=== PATIENT | female | born 1990 | race Caucasian/White ===

== ENCOUNTER 2017-02-12 16:58 | Emergency (ER) | payer OTHER ==
[~2017-02-12] VITALS: Ht 162.6 cm; Wt 78.2 kg
[~2017-02-12 16:58] MED LIST: ALBUAER2 INH; HYDR-5688 PO; IBUP-103 PO; ONDA4TAB46 PO
[2017-02-12 17:15] VITALS: TEMP 36.7; Ht 162.6 cm; Wt 78.2 kg
[2017-02-12] MEDS ORDERED: ONDANSETRON INJ 2 MG/ML 2 ML VIAL IV STA (18:21)
[2017-02-12] MEDS ORDERED: SODIUM CHLORIDE 0.9% 1000ML 1,000 ML IV STA (18:21)
[2017-02-12] MEDS ORDERED: FENTANYL CITRATE INJ 50 MCG/1 ML 2 ML VIAL IV PRN (18:30)
[2017-02-12 18:40] LABS: BASO % 0.2 %; BASO ABS # 0.02 K/uL (0-0.2); COMPLETE YES; EOS % 2.8 %; HEMATOCRIT 40.8 % (37-47); IG% 0.2 %; LYMPH % 38.2 %; MEAN CELL VOLUME 85.2 fL (80-100); MEAN CORPUSCULAR HEMOGLOBIN 29.4 pg (25-34); MEAN CORPUSCULAR HGB CONC 34.6 g/dl (32-36); MEAN PLATELET VOLUME 9.2 fL (7.4-10.4); MONO % 8.9 %; NEUT % 49.7 %; PLATELET COUNT 225 K/uL (130-400); RED BLOOD COUNT 4.79 M/uL (4.2-5.4); WHITE BLOOD COUNT 9.17 K/uL (4.8-10.8)
[2017-02-12 18:54] LABS: BLOOD UREA NITROGEN 18 mg/dl (7-18); BUN/CREATININE RATIO 20.4 (10-20); CALCIUM 9.2 mg/dl (8.5-10.1); CARBON DIOXIDE 23 mmol/L (21-32); CHLORIDE 106 mmol/L (98-107); CREATININE 0.89 mg/dl (0.60-1.20); GLUCOSE 86 mg/dl (70-99); POTASSIUM 3.5 mmol/L (3.5-5.1); SODIUM 139 mmol/L (136-145)
[2017-02-12 19:01] LABS: ALKALINE PHOSPHATASE 45 U/L (45-117); ALT/SGPT 19 U/L (12-78); AST/SGOT 17 U/L (15-37)
[2017-02-12 19:07] LABS: URINE APPEARANCE CLEAR (CLEAR); URINE BILIRUBIN NEG (NEG); URINE COLOR YELLOW; URINE EPITHELIAL CELL AUTO >30 /lpf (0-5); URINE NITRITE NEG (NEG); URINE SPECIFIC GRAVITY 1.022 (1.000-1.030); UROBILINOGEN NEG (NEG); ZZUR CULT IF INDIC CLEAN CATCH NO
[2017-02-12 19:08] LABS: MANUAL MICROSCOPIC REQUIRED? NO; REVIEW REQ? NO
[2017-02-12] MEDS ORDERED: ALBU18002 INH (19:09)
--- NOTE | 2017-02-12 19:43 | DIAGNOSTIC IMAGING REPORT ---
ABDOMEN AND PELVIS CT WITH IV CONTRAST CT DOSE: 412.49 mGy.cm HISTORY: Hernia. Pain. eval for periumbilical hernia TECHNIQUE: Multiaxial CT images of the abdomen and pelvis were performed following the use of intravenous contrast. COMPARISON STUDY: Ultrasound dated 04/24/2015 FINDINGS: Lung bases are clear. Liver spleen and pancreas are unremarkable. Linear scarring is identified deep to the umbilicus although there is no evidence for focal hernia. Kidneys enhance uniformly. Bowel pattern is considered nonobstructive. Bilateral ovarian cysts are present. Largest on the left measures 4 cm and is partially complex. There are several follicular cysts of the right ovary. Uterus is anteflexed. IMPRESSION: 1. Linear scar tissue deep to the umbilicus. 2. No evidence for anterior abdominal wall hernia. 3. Bilateral ovarian cysts. 4. Otherwise negative study. Electronically signed by: Nathan Garcia M.D. 02/12/2017 7:42 PM Dictated Date/Time: 02/12/2017 7:39 PM
--- NOTE | 2017-02-12 19:56 | EMERGENCY ROOM VISIT NOTE ---
History Report prepared by Jose J: Tod Morocho Under the Supervision of: Dr. Shakir Mejias D.O. First contact with patient: 18:15 Chief Complaint: ABDOMINAL PAIN Stated Complaint: HERNIA PAIN History of Present Illness The patient is a 26 year old female who presents to the Emergency Room with complaints of constant shooting abdominal pain starting 2.5 months ago. She rates her pain as a 9/10 in severity and reports the pain is worsened with palpation. The patient states that she has had an umbilical hernia for two and a half years. She states that she has had two surgeries on her hernia and was scheduled for a meshing surgery for 12 days ago. The patient states that she was in preop 12 days ago when the anesthesiologist was going to give her anesthesia. She states that the heart monitor went off prompting them to run an EKG. She reports that her EKG showed abnormal results, which caused a need to be cleared by cardiology before the surgery could proceed. The patient states that she went to her family doctor earlier this week and requested imaging, which showed stranding of fat tissue due to inflammation. She reports that they also did blood work, which showed normal levels. The patient states that she was recently cleared by the financial planning assistant, Dr. Miranda, for surgery. She reports that she still needs to wait until next week to consult with a surgeon to have her cleared for surgery. The patient reports that her last normal menstrual period was February 01 and denies any possible . She reports that she has a history of breast surgery for the removal of a mass. Source of History: patient Onset: 2.5 months ago Position: abdomen Symptom Intensity: 9/10 Quality: other (shooting) Timing: constant Modifying Factors (Worsening): other (touching the abdomen) Review of Systems See HPI for pertinent positives & negatives. A total of 10 systems reviewed and were otherwise negative. Past Medical & Surgical Medical Problems: (1) Adenoidectomy (2) Bronchitis Social History Smoking Status: Current Every Day Smoker Alcohol Use: occasionally Marital Status: single Occupation Status: employed Current/Historical Medications Scheduled PRN Albuterol Sulfate (Proair Respiclick), 2 PUFFS INH QID PRN for SOB/Wheezing Ibuprofen Tab (Advil), 400 MG PO Q4 PRN for Pain or Fever Allergies Coded Allergies: Latex (Verified Allergy, Mild, "LATEX BANDAGES BURN MY SKIN", 02/12/17) Coconut (Verified Allergy, Unknown, HIVES, 02/12/17) NO KNOWN DRUG ALLERGIES (Verified Allergy, Unknown, ., 02/12/17) Watermelon (Verified Allergy, Unknown, HIVES, 02/12/17) Physical Exam Vital Signs Date Time Temp Pulse Resp B/P (MAP) Pulse Ox O2 Delivery O2 Flow Rate FiO2 02/12/17 19:50 68 16 112/63 100 Room Air 02/12/17 18:30 98 18 97 02/12/17 17:15 36.7 109 20 142/82 100 Room Air Physical Exam CONSTITUTIONAL/VITAL SIGNS: Reviewed / noted above. GENERAL: Non-toxic in appearance. INTEGUMENTARY: Warm, dry, and [place]. HEAD: Normocephalic. EYES: without scleral icterus or trauma. ENT/OROPHARYNX: clear and moist. LYMPHADENOPATHY/NECK: Is supple without lymphadenopathy or meningismus. RESPIRATORY: Lungs clear and equal. CARDIOVASCULAR: Regular rate and rhythm. GI/ABDOMEN: Soft. Mild periumbilical tenderness without any erythema or obvious hernia. No organomegaly or pulsatile mass. No rebound or guarding. Normal bowel sounds. EXTREMITIES: Warm and well perfused. BACK: No CVA tenderness. NEUROLOGICAL: Intact without focal deficits. PSYCHIATRIC: normal affect. MUSCULOSKELETAL: Normally developed with good muscle tone. Medical Decision & Procedures ER Provider Diagnostic Interpretation: CT results as stated below per my review and radiologist interpretation: ABDOMEN AND PELVIS CT WITH IV CONTRAST CT DOSE: 412.49 mGy.cm HISTORY: Hernia. Pain. eval for periumbilical hernia TECHNIQUE: Multiaxial CT images of the abdomen and pelvis were performed following the use of intravenous contrast. COMPARISON STUDY: Ultrasound dated 04/24/2015 FINDINGS: Lung bases are clear. Liver spleen and pancreas are unremarkable. Linear scarring is identified deep to the umbilicus although there is no evidence for focal hernia. Kidneys enhance uniformly. Bowel pattern is considered nonobstructive. Bilateral ovarian cysts are present. Largest on the left measures 4 cm and is partially complex. There are several follicular cysts of the right ovary. Uterus is anteflexed. IMPRESSION: 1. Linear scar tissue deep to the umbilicus. 2. No evidence for anterior abdominal wall hernia. 3. Bilateral ovarian cysts. 4. Otherwise negative study. Electronically signed by: Nathan Garcia M.D. 02/12/2017 7:42 PM Dictated Date/Time: 02/12/2017 7:39 PM Laboratory Results 02/12/17 18:12 Red Blood Count 4.79, Mean Corpuscular Volume 85.2, Mean Corpuscular Hemoglobin 29.4, Mean Corpuscular Hemoglobin Concent 34.6, Mean Platelet Volume 9.2, Neutrophils (%) (Auto) 49.7, Lymphocytes (%) (Auto) 38.2, Monocytes (%) (Auto) 8.9, Eosinophils (%) (Auto) 2.8, Basophils (%) (Auto) 0.2, Neutrophils # (Auto) 4.55, Lymphocytes # (Auto) 3.50, Monocytes # (Auto) 0.82, Eosinophils # (Auto) 0.26, Basophils # (Auto) 0.02 02/12/17 18:12 Test 02/12/17 18:12 02/12/17 18:45 White Blood Count 9.17 K/uL (4.8-10.8) Red Blood Count 4.79 M/uL (4.2-5.4) Hemoglobin 14.1 g/dL (12.0-16.0) Hematocrit 40.8 % (37-47) Mean Corpuscular Volume 85.2 fL (80-100) Mean Corpuscular Hemoglobin 29.4 pg (25-34) Mean Corpuscular Hemoglobin Concent 34.6 g/dl (32-36) Platelet Count 225 K/uL (130-400) Mean Platelet Volume 9.2 fL (7.4-10.4) Neutrophils (%) (Auto) 49.7 % Lymphocytes (%) (Auto) 38.2 % Monocytes (%) (Auto) 8.9 % Eosinophils (%) (Auto) 2.8 % Basophils (%) (Auto) 0.2 % Neutrophils # (Auto) 4.55 K/uL (1.4-6.5) Lymphocytes # (Auto) 3.50 K/uL (1.2-3.4) Monocytes # (Auto) 0.82 K/uL (0.11-0.59) Eosinophils # (Auto) 0.26 K/uL (0-0.5) Basophils # (Auto) 0.02 K/uL (0-0.2) RDW Standard Deviation 42.0 fL (36.4-46.3) RDW Coefficient of Variation 13.4 % (11.5-14.5) Immature Granulocyte % (Auto) 0.2 % Immature Granulocyte # (Auto) 0.02 K/uL (0.00-0.02) Anion Gap 10.0 mmol/L (3-11) Est Creatinine Clear Calc Drug Dose 97.0 ml/min Estimated GFR () 103.7 Estimated GFR (Non- 89.4 BUN/Creatinine Ratio 20.4 (10-20) Calcium Level 9.2 mg/dl (8.5-10.1) Total Bilirubin 0.4 mg/dl (0.2-1) Direct Bilirubin < 0.1 mg/dl (0-0.2) Aspartate Amino Transf (AST/SGOT) 17 U/L (15-37) Alanine Aminotransferase (ALT/SGPT) 19 U/L (12-78) Alkaline Phosphatase 45 U/L (45-117) Total Protein 7.6 gm/dl (6.4-8.2) Albumin 4.4 gm/dl (3.4-5.0) Lipase 148 U/L (73-393) Urine Color YELLOW Urine Appearance CLEAR (CLEAR) Urine pH 6.0 (4.5-7.5) Urine Specific [place] 1.022 (1.000-1.030) Urine Protein NEG (NEG) Urine Glucose (UA) NEG (NEG) Urine Ketones TRACE (NEG) Urine Occult Blood NEG (NEG) Urine Nitrite NEG (NEG) Urine Bilirubin NEG (NEG) Urine Urobilinogen NEG (NEG) Urine Leukocyte Esterase NEG (NEG) Urine WBC (Auto) 0 /hpf (0-5) Urine RBC (Auto) 0-4 /hpf (0-4) Urine Hyaline Casts (Auto) 1-5 /lpf (0-5) Urine Epithelial Cells (Auto) >30 /lpf (0-5) Urine Bacteria (Auto) NEG (NEG) Urine Test NEG (NEG) Laboratory results as stated above per my review. Medications Administered Medications (Trade) Dose Ordered Sig/Tatiana Route Start Time Stop Time Status Last Admin Dose Admin Sodium Chloride 1,000 ml @ 999 mls/hr Q1H1M STAT IV 02/12/17 18:21 02/12/17 19:21 DC 02/12/17 18:34 999 MLS/HR Ondansetron HCl (Zofran Inj) 4 mg NOW STAT IV 02/12/17 18:21 02/12/17 18:23 DC 02/12/17 18:34 4 MG Fentanyl Citrate (Fentanyl Inj) 100 mcg Q1H PRN IV 02/12/17 18:30 02/26/17 18:29 02/12/17 18:35 100 MCG ED Course 1812: Previous medical records were reviewed. The patient was evaluated in room B03. A complete history and physical examination was performed. 1820: Zofran Injection 4 mg IV, Sodium Chloride 1000 ml @ 999 mls/hr IV. 1829: Fentanyl Injection 100 mcg IV. 1956: On reevaluation, the patient is resting comfortably. I discussed the results and findings with the patient. She verbalized agreement of the treatment plan. She was discharged home. Medical Decision Differential considered: pancreatitis, hepatitis, or acute cholecystitis, AAA, UTI, pyelonephritis, kidney stones, appendicitis, diverticulitis, shingles, bowel obstruction mesenteric ischemia, intussusception,hernia, testicular torsion, ovarian torsion, ruptured ovarian cyst,ectopic , . Medication Reconciliation: I attest that I have personally reviewed the patient' s current medication list. Patient was found to have a slightly elevated blood pressure due to circumstances. I do not believe that the patient requires hypertension monitoring. This is a 26-year-old female who presents to the ED with a chief complaint of periumbilical pain. The patient states that she has a hernia. 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 The patient has since gotten clearance to have the surgery but the degree is not scheduled until later. The patient told me that she has to see a different surgeon as Dr. Jasso cannot do the surgery as an outpatient and the surgery has to be done at the hospital. The patient's exam was unremarkable with the exception of some mild periumbilical tenderness. There is no obvious hernia, redness or irritation. There is no swelling. CBC is normal, PRP is normal, LFTs are normal, urine did not show infection. test was negative. CT scan of the abdomen and pelvis did not show any abnormalities in the umbilical area or other areas of the abdomen. The patient is felt to be stable for discharge. She was given IV fentanyl for pain. [place] Drug Monitoring [place] Search Results: patient reviewed within database, no issues identified Impression Primary Impression: Abdominal pain, periumbilic Scribe Attestation The scribe's documentation has been prepared under my direction and personally reviewed by me in its entirety. I confirm that the note above accurately reflects all work, treatment, procedures, and medical decision making performed by me. Departure Information Dispostion Home / Self-Care Referrals Hayley Jurado, (PCP) Forms HOME CARE DOCUMENTATION FORM, IMPORTANT VISIT INFORMATION Patient Instructions My [facility] Additional Instructions Follow-up with your doctor for further care and evaluation in 1-2 days. Return to the emergency department for worsening or new symptoms or any concerns. You have been examined and treated today on an emergency basis only. This is not a substitute for, or an effort to provide, complete comprehensive medical care. It is impossible to recognize and treat all injuries or illnesses in a single emergency department visit. It is therefore important that you follow up closely with your doctor. Call as soon as possible for an appointment. Take Tylenol or Motrin as needed for pain.
[2017-02-12 20:38] VITALS: BP 112/63; PULSE 68; O2SAT 100
[2017-02-25] MEDS ORDERED: AMOX500T PO (15:40)
== END 2017-02-12 20:20 | disposition home or self-care (01) ==
LOC: C.EDB 17:01
DX: R10.33 Periumbilical pain (principal); F17.200 Nicotine dependence, unspecified, uncomplicated; Z90.89 Acquired absence of other organs

== ENCOUNTER 2017-03-01 07:02 | Day surgery (SDC) | payer OTHER ==
[2017-02-25 14:52] VITALS: BMI 29.0
[~2017-03-01] VITALS: Ht 162.6 cm; Wt 77.3 kg
[~2017-03-01 07:02] MED LIST changes: +ACETAMINOPHEN 1000 MG/100 ML IV IV ONE; +ALBU18002 INH; -ALBUAER2 INH; +AMOX500T PO; +CEFAZOLIN 2000 MG/60 ML D5W IV SCH; -HYDR-5688 PO; +LACTATED RINGER'S 1000ML 1,000 ML IV SCH; -ONDA4TAB46 PO
[2017-03-01] MEDS ORDERED: GLYCOPYRROLATE INJ 0.2 MG/ML VIAL ONE (07:39)
[2017-03-01] MEDS ORDERED: MIDAZOLAM HCL 1 MG/ML 2ML VIAL ONE (07:39)
[2017-03-01] MEDS ORDERED: ONDANSETRON INJ 2 MG/ML 2 ML VIAL ONE (07:39)
[2017-03-01] MEDS ORDERED: FENTANYL CITRATE INJ 50 MCG/1 ML 2 ML VIAL ONE ×2 (07:39→09:19)
[2017-03-01] MEDS ORDERED: DEXAMETHASONE SOD INJ 4 MG/ML VIAL ONE (07:39)
[2017-03-01] MEDS ORDERED: PROPOFOL IV EMULSION 10 MG/ML 20 ML VIAL IV ONE (07:39)
[2017-03-01] MEDS ORDERED: NEOSTIGMINE METHYLSULFATE 5 MG/5 ML SYR ONE (07:39)
[2017-03-01] MEDS ORDERED: LIDOCAINE HCL 2% 2 ML VIAL (20MG/ML) ONE (07:39)
[2017-03-01] MEDS ORDERED: ROCURONIUM BROMIDE 10 MG/ML 5 ML VIAL ONE (07:39)
[2017-03-01 07:40] VITALS: BP 92/62; PULSE 67; TEMP 37.2; O2SAT 100; Ht 162.6 cm; Wt 77.3 kg
[2017-03-01] MEDS ORDERED: ONDANSETRON INJ 2 MG/ML 2 ML VIAL IV PRN ×2 (07:45→10:45)
[2017-03-01] MEDS ORDERED: ATROPINE SULFATE 0.1 MG/ML 5ML SYR IV PRN (07:45)
[2017-03-01] MEDS ORDERED: FLUMAZENIL 0.1 MG/1 ML 10 ML VIAL IV PRN (07:45)
[2017-03-01] MEDS ORDERED: NALOXONE HCL 0.4 MG/1 ML VIAL/CARP IV PRN (07:45)
[2017-03-01] MEDS ORDERED: HYDROmorphone INJ 2 MG/ML SYR/VIAL IV PRN (07:45)
[2017-03-01] MEDS ORDERED: PHENYLEPHRINE 100MCG/ML 5ML SYR IV PRN (07:45)
[2017-03-01] MEDS ORDERED: MEPERIDINE HCL 25 MG/ML CARP IV PRN (07:45)
[2017-03-01] MEDS ORDERED: EpHEDrine SULFATE INJ 50 MG/ML AMP IV PRN (07:45)
[2017-03-01] MEDS ORDERED: LABETALOL HCL IV 5 MG/ML 20ML IV PRN (07:45)
[2017-03-01] MEDS ORDERED: ACET-1256 PO (07:53)
[2017-03-01] MEDS ORDERED: BUPIVACAINE 0.5 % 5 MG/1 ML MPF 30ML VIAL ONE (08:28)
[2017-03-01] MEDS ORDERED: LIDOCAINE HCL 1% 20 ML VIAL ONE (08:28)
--- NOTE | 2017-03-01 08:36 | History & Physical Bridge Note ---
H&P Re-Evaluation Bridge Note: I have examined the patient, reviewed the History & Physical and in the interval since the performance of the History & Physical I have noted the following changes of clinical significance: No changes noted, patient will have open repair recurrent umbilical hernia with mesh, patient agrees with the plan, discussed Benefits, risks and alternatives of the procedure, patient understood , I answered all questions,
[2017-03-01] MEDS ORDERED: PROCAINAMIDE HCL INJ 500 MG/ML 2 ML VIAL IV PRN (09:00)
--- NOTE | 2017-03-01 10:12 | [facility] Post Operative Brief Note ---
Immediate Operative Summary Operative Date Mar 01, 2017. Pre-Operative Diagnosis recurrent Umbilical hernia Post-Operative Diagnosis recurrent Umbilical hernia Procedure(s) Performed Open Umbilical Hernia Repair with Mesh Surgeon [employer] Supervisor Surgeon(s) Wilfrid Bernal PA-C Estimated Blood Loss 10CC Findings recurrent umbilical hernia Fluids (cc crystalloids) 1000ml Specimens None per surgeon Drains none Anesthesia general Complication(s) None Disposition Recovery Room / PACU
[2017-03-01] MEDS ORDERED: OXYC-57 PO (10:26)
[2017-03-01] MEDS: FENTANYL CITRATE INJ 50 MCG/1 ML 2 ML VIAL IV PRN ×3 (10:31→10:44)
--- NOTE | 2017-03-01 10:31 | [facility] Operative Report ---
Operative Report Operative Date Mar 01, 2017. Pre-Operative Diagnosis recurrent Umbilical hernia Post-Operative Diagnosis recurrent Umbilical hernia Procedure(s) Performed Open Umbilical Hernia Repair with Mesh Surgeon [employer] Copy Writer Surgeon(s) Wilfrid Bernal PA-C Estimated Blood Loss 10CC Findings recurrent umbilical hernia Fluids 1000ml Specimens None per surgeon Drains none Anesthesia general Complication(s) None Disposition Recovery Room / PACU Indications Feces 26 years old female who presented recurrent umbilical hernia with 2 times. Patient required open repair umbilical hernia using mesh. I talked patient about benefits, risk alternating of the procedure, I indications and risks may including but not limit, such as bleeding, infection, hernia recurrence may need more procedure, incision pain , seroma, even . that' s patient understood, she signed consent, I answered all questions. Description of Procedure we bring patient to the OR. The patient superior position on the OR table patient received a SCD on bilateral legs to prevent DVT, patient received IV 900mg clindamycin antibiotic and patient received general ansethesia without difficulty, the abdomen was appropriately recurrent routine sterile fashion after timeout make a 4 cm incision around umbilical area. Open layer by layer to reach abdominal cavity. we found patient had a recurrent hernia about 2 cmx 2cm, mobilized the hernia neck and then we using 1010 cm mesh to close his hernia using 0 eithpon suture simple interrupted suture mesh to his fashion and recheck his mesh, mesh sits nicely no tension and closed the subcutaneous layer by using 2-0 Vicryl close skin by using 4-0 Vicryl clinic without dressing patient tolerated procedure well and all instrument, needle, sponge count correct 2 in case patient was performed, patient tolearted the procedure well, she was transfered to recovery room in table condition. I attest to the content of the Intraoperative Record and any orders documented therein. Any exceptions are noted below.
--- NOTE | 2017-03-01 10:33 | Discharge Instructions ---
Discharge Instructions Date of Service Mar 01, 2017. Admission Reason for Admission: Umbilical Hernia Discharge Discharge Diagnosis / Problem: umbilical hernia Discharge Goals Goal(s): Screening Activity Recommendations Activity Limitations: as noted below No heavy lifting over 10 pounds for 6 weeks No strenuous activity until cleared by surgeon No submerging incision underwater for 2 weeks No [address] while taking narcotic pain medication . Instructions / Follow-Up Instructions / Follow-Up Keep dressing on for 4 days and then shower and remove. Sponge bath and wash hair in meantime. Try to keep dressing dry. Leave steri strips on incision for 10 days and then remove, they may fall off before that is okay. Wear abdominal binder daily for support, you may take off during night time Follow-up with Dr. Kessler in 1 week, call office at [phone] if you do not already have an appointment Current Hospital Diet Patient's current hospital diet: Discharge Diet Recommended Diet: Regular Diet Procedures Procedures Performed: Open Umbilical Hernia Repair with Mesh Pending Studies Studies pending at discharge: no Medical Emergencies . Who to Call and When: Medical Emergencies: If at any time you feel your situation is an emergency, please call 911 immediately. . Non-Emergent Contact Non-Emergency issues call your: Primary Care Provider, Surgeon Call Non-Emergent contact if: you have a fever, temperature is above 101.5, your pain is not controlled, your pain is worsening, wound has increased drainage, wound has increased redness, wound has increased pain . "Provider Documentation" section prepared by Kiara Bernal. . VTE Core Measure Inpt VTE Proph given/why not?: Treatment not indicated [place] Drug Monitoring [place] Search Results: patient reviewed within database, no issues identified
[2017-03-01] MEDS ORDERED: MoRPHine SULFATE 2 MG/ML CARP IV PRN ×2 (10:45)
[2017-03-01] MEDS ORDERED: MoRPHine SULFATE 4 MG/ML 1 ML CARP\\VIAL IV PRN (10:45)
[2017-03-01] MEDS ORDERED: OXYCODONE/ACETAMINOPHEN 5-325 TAB PO PRN (10:45)
--- NOTE | 2017-03-01 11:07 | Anesthesiology Progress Note ---
Anesthesia Post Op Note Date & Time Mar 01, 2017 at 11:06 Vital Signs Pain Intensity: 4 Vital Signs Past 12 Hours Date Time Temp Pulse Resp B/P (MAP) Pulse Ox O2 Delivery O2 Flow Rate FiO2 03/01/17 11:00 36.8 58 24 119/79 93 Room Air 03/01/17 10:50 59 16 123/76 93 Room Air 03/01/17 10:40 57 18 128/77 100 Mask 6 03/01/17 10:30 67 22 122/81 100 Mask 8 03/01/17 10:23 36.4 89 12 122/86 100 Mask 10 03/01/17 07:40 37.2 67 18 92/62 (72) 100 Room Air Notes Mental Status: alert / awake / arousable, participated in evaluation Pt Amnestic to Procedure: Yes Nausea / Vomiting: adequately controlled Pain: adequately controlled Airway Patency, RR, SpO2: stable & adequate BP & HR: stable & adequate Hydration State: stable & adequate Anesthetic Complications: no major complications apparent
[2017-03-01 11:30] VITALS: BP 108/50; PULSE 52; TEMP 36.7; O2SAT 97
[2017-03-01 12:00] VITALS: BP 106/59; PULSE 58; TEMP 36.7; O2SAT 94
[2017-03-01 12:30] VITALS: BP 109/61; PULSE 61; TEMP 36.5; O2SAT 97
[2017-03-02] MEDS ORDERED: CEFAZOLIN IV 2,000 MG/60 ML D5W IV ONE (06:00)
== END 2017-03-01 12:40 | disposition home or self-care (01) ==
LOC: C.ACU 07:02
PROVIDERS: ATTEND Surgery
DX: K42.9 Umbilical hernia without obstruction or gangrene (principal); K21.9 Gastro-esophageal reflux disease without esophagitis; K44.9 Diaphragmatic hernia without obstruction or gangrene; F17.200 Nicotine dependence, unspecified, uncomplicated

== ENCOUNTER → 2017-04-21 | Day surgery (SDC) | payer OTHER ==
[~2017-04-21] VITALS: Ht 162.6 cm; Wt 78.0 kg
[~2017-04-21] MED LIST changes: +ACET-1256 PO; -ACETAMINOPHEN 1000 MG/100 ML IV IV ONE; -AMOX500T PO; -CEFAZOLIN 2000 MG/60 ML D5W IV SCH; +FENTANYL CITRATE INJ 50 MCG/1 ML 2 ML VIAL ONE; +ISOPROTERENOL 200 MCG / 50ML D5W IV ONE; -LACTATED RINGER'S 1000ML 1,000 ML IV SCH; +LIDOCAINE HCL 1% 20 ML VIAL ONE; +MIDAZOLAM HCL 5 MG/ML 1 ML VIAL ONE; +OXYC-57 PO
[2017-04-21 11:32] VITALS: BP 128/66; O2SAT 100; Ht 162.6 cm; Wt 78.0 kg
--- NOTE | 2017-04-21 11:33 | History & Physical Bridge Note ---
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
--- NOTE | 2017-04-21 11:34 | Procedure Note ---
Pre-Mod Sedation Assessment General Date of Moderate Sedation: Apr 21, 2017. Review Cardiovascular: regular rate, rhythm Abdomen: soft Lungs: lungs clear Airway Class: II Pre-Sedation Airway Assessment Oral Cavity: WNL Able to Visualize Vocal Cords: No Short Thick Neck: No Smoking Status: Current Every Day Smoker Mallampati Classification: Class II ASA Classification: Class II Procedure Planning Contraindications-for Mod Sed: None Yes Notes The planned sedation has been discussed with the patient and consent obtained. I have identified the patient, determined the appropriateness of sedation and have assessed the patient immediately prior to the procedure. All medicine(s) and interventions are by my order.
[2017-04-21 12:45] LABS: HEMATOCRIT 34.8 % (37-47); MEAN CELL VOLUME 86.1 fL (80-100); MEAN CORPUSCULAR HEMOGLOBIN 29.5 pg (25-34); MEAN CORPUSCULAR HGB CONC 34.2 g/dl (32-36); MEAN PLATELET VOLUME 9.4 fL (7.4-10.4); PLATELET COUNT 236 K/uL (130-400); RED BLOOD COUNT 4.04 M/uL (4.2-5.4); WHITE BLOOD COUNT 6.41 K/uL (4.8-10.8)
[2017-04-21 13:42] LABS: BUN/CREATININE RATIO 21.6 (10-20); CALCIUM 8.4 mg/dl (8.5-10.1); CREATININE 0.75 mg/dl (0.60-1.20); POTASSIUM 4.5 mmol/L (3.5-5.1)
--- NOTE | 2017-04-21 14:35 | Procedure Note ---
Post-Mod Sedation Assessment General Date of Moderate Sedation Apr 21, 2017. Vital Signs: Vital Signs Past 12 Hours Date Time Temp Pulse Resp B/P (MAP) Pulse Ox O2 Delivery O2 Flow Rate FiO2 04/21/17 14:30 80 16 113/65 (81) 100 Room Air 04/21/17 14:25 85 16 118/69 (85) 100 Room Air 04/21/17 14:20 85 16 121/64 (83) 100 Room Air 04/21/17 11:32 14 128/66 100 Room Air Review - Discharge Criteria Vital Signs Stable: Yes Alert/Oriented/Conversant: Yes Returned to Baseline Mental St: Yes Nausea Absent/Minimal: Yes Pain/Discomfort/Absent/Minimal: Yes Normal/Baseline Respirations: Yes Active Bleeding?: No Pt Received D/C Instructions: Yes Prescriptions Given: None Specific Proced. D/C Criteria Distal Pulses Present (Cardiac: Yes Groin site assessed-Card Cath: Yes Voided Prior To Discharge: Yes Discharged Patients Adult Escort/Transportation: Yes
--- NOTE | 2017-04-21 14:35 | [facility] Post Operative Brief Note ---
Immediate Operative Summary Operative Date Apr 21, 2017. Pre-Operative Diagnosis wpw pattern, palpitations Post-Operative Diagnosis same, plus accesory pathway near His bundle region, no sustained inducible SVT Procedure(s) Performed EPS, isoprel drug infusion Surgeon [facility] Manager Surgeon(s) none Estimated Blood Loss <5cc Findings see official report Fluids (cc crystalloids) 500cc Specimens none Drains none Anesthesia 10mg versed and 200mcg fentanyl Complication(s) None Disposition laboratory analyst holding
--- NOTE | 2017-04-21 14:37 | Discharge Instructions ---
Discharge Instructions Procedure Procedure Date: Apr 21, 2017. Reason for Visit: Wpw W/ Ablation Zazzali To Do. Discharge Discharge Date: Apr 21, 2017. Discharge Diagnosis: wpw pattern Last Recorded Wt (Kilograms): 78 Medications Stopped Medication(s): none Anesthesia Post Anesthesia Instructions: If you have had General Anesthesia or IV Sedation: * Do not drive today. * Resume driving when surgeon permits. * Do not make important decisions or sign legal documents today. * Call surgeon for: 1. Temperature elevations greater than 101 degrees F. 2. Uncontrollable pain. 3. Excessive bleeding. 4. Persistent nausea and vomiting. 5. Medication intolerance (nausea, vomiting or rash). * For nausea and vomiting use only clear liquids such as: tea, soda, bouillon until nausea subsides, then gradually increase diet as tolerated. * If you have any concerns or questions, call your surgeon's office. If physician is unavailable and it is an emergency, call 911 or go to the nearest emergency room. Instructions Activity Recommendations: limitations as noted below (no heavy lifting or squating for 1 week) Recommended Home Diet: resume previous diet Allergies: Coded Allergies: Latex (Verified Allergy, Mild, states bandaides and tape burn her skin, 06/08) Coconut (Verified Allergy, Unknown, HIVES, 03/01/17) NO KNOWN DRUG ALLERGIES (Verified Allergy, Unknown, ., 03/01/17) Watermelon (Verified Allergy, Unknown, HIVES, 03/01/17) Provider Instructions ACTIVITY RECOMMENDATIONS: It is common to feel weak and fatigue for a few days. * Do not drive or operate any motorized equipment for the next 1 day. * Do not lift anything heavier than 10 pounds for the next 5-7 days. * Do not engage in vigorous exercise or any sports for the next five days. * You may shower the day after your procedure, but do not immerse the area for three days. Cleanse the site gently with soap and water. SPECIAL CARE INSTRUCTIONS: * You may replace the pressure dressing or band-aid the morning after the procedure. * After your procedure, it is normal to have a small bruise or small lump at the site. Examine your site daily for any change in the bruise or lump, redness, swelling, drainage or numbness. Notify your doctor if any change. BLEEDING: * If there is a small amount of bleeding at the site, lie down and apply firm pressure with a clean cloth for ten minutes. When the bleeding stops, lie quietly keeping the procedure limb straight for six hours. Notify your doctor as soon as possible. * If the bleeding does not stop after ten minutes or if there is a large amount of bleeding or spurting, call 911 immediately. Continue to lie down and hold firm pressure until help arrives. SKIN IRRITATION: * You may experience some redness and/or swelling in the area where radiation was administered. If any skin irritation occurs, please contact your family physician. FOLLOW UP VISIT: Keep any scheduled doctor appointments. Follow Up [facility] [place] Recommendations: Call your doctor if: * Temperature above 101 degrees * Pain not relieved by pain medicine ordered * There is increased drainage or redness from any incision * You have any unanswered questions or concerns. Your Doctors Instructions noted above were prepared by provider Becki Melendez. Patient Signature Section: Patient Instructions Signature Page Lucina Wall Patient (or Guardian) Signature/Date: I have read and understand the instructions given to me by my caregivers. Caregiver/RN/Doctor Signature/Date: The above-named patient and/or guardian has received patient instructions on this date. + Original Patient Signature Page (only) stays with chart. Please make copy for patient.
--- NOTE | 2017-04-21 16:06 | OPERATIVE REPORT ---
DATE OF OPERATION: 04/21/2017 PREOPERATIVE DIAGNOSIS: Aaptu-Wtesbfudf-Nwzvt pattern of palpitations. POSTOPERATIVE DIAGNOSIS: Same, septal near the His accessory pathway, no inducible supraventricular tachycardia. PROCEDURE: Electrophysiology study, Isuprel drug infusion. SURGEON: Dr. Becki Melendez. CHILDREN'S ATTENDANT: None. ANESTHESIA: Monitored conscious sedation administered by Kiara Bah under my supervision total of 10 mg of Versed and 200 mcg of Fentanyl. Start time 1237, end time 1420. IV FLUIDS: 500 mL. COMPLICATIONS: None. CONDITION: Stable. URINE OUTPUT: Not applicable. SPECIMENS: None. FINDINGS: None. DRAINS: None. URINE OUTPUT: Not applicable. INDICATIONS: This is a 26-year-old female with past medical history of WPW pattern, sinus bradycardia, palpitations, umbilical hernia, which she is status post open repair in February 2017, chronic tobacco use, and gastroesophageal reflux disease. Due to her symptoms WPW pattern and palpitations, she wanted to risk stratify her syndrome. CONSENT: Consent was obtained prior to the patient going into electrophysiology lab. The patient was informed of risks, benefits and alternatives to the procedure. Risks include but not limited to sudden cardiac , cardiac arrhythmias, cerebrovascular accident, myocardial infarction, injury to the blood vessels, chamber of the heart, injury to the blood vessels, chamber of the heart or the [place] electrical system where she would need a permanent pacemaker, infection and bleeding. DESCRIPTION OF PROCEDURE: The patient was brought into the electrophysiology lab in fasting state. She was connected to continuous cardiac monitoring. A timeout was performed to ensure patient's identity and procedure correctly. The patient was prepped and draped over the bilateral groins in normal surgical standard fashion. Monitored conscious sedation was given throughout the procedure under my supervision. Paradox precautions were maintained throughout the procedure. 10 mL of 1% lidocaine, bupivacaine mixture were given in the bilateral groins. Then using the modified Seldinger technique, venous access was obtained in the following manner; Left femoral vein; A 6-St Helenian sheath followed by a Sheila quadripolar catheter positioned in the high right ventricular apex. A 7-St Helenian sheath followed by a Hisser quadripolar catheter positioned over the His bundle region. A 7-St Helenian sheath followed by a LeanAppsense Yatra Decapolar coronary sinus catheter positioned out in the coronary sinus. The right femoral vein; A 6-St Helenian sheath, followed by a Sheila quadripolar catheter positioned in the high right atrium. Electrophysiology study was performed with the following results. ME interval 180 milliseconds, baseline intervals are as follows: ME interval 180 milliseconds, QRS 80 milliseconds, QT 98 milliseconds, sinus cycle length 766 milliseconds, AH 138 milliseconds, HV 384 milliseconds. At this baseline rate the patient did appear to be conducting anterograde down the bypass accessory pathway. The AV Wenckebach was found to be 320 milliseconds. The accessory pathway ERP was found to be 600/290 and 400/300 with AV node ERP less than or equal to the accessory pathway ERP. The atrial ERP was 600/240 and 400/230. With right ventricular pacing there was no VA conduction at 500 milliseconds, the RV ERP was 600/230 and 400/220 with up to triple atrial extrastimuli from the high right atrium, there was no inducible SVT. Isuprel was then started. There was not much response at 2, so was increased to 4 with an appropriate isuprel response another electrophysiology study was performed with the following findings: ME interval 138 milliseconds, QRS 66 milliseconds (it now appeared that the patient was conducting antegrade down the AV node (QT 260 milliseconds, sinus cycle length 500 milliseconds, AH was 82 milliseconds, HV 52 milliseconds. With atrial burst pacing from 400 down to 300 she was conducting down the AV node at 300 milliseconds. She started conducting down the accessory pathway. At 310 milliseconds there was AV Wenckebach, at 270 milliseconds there was intermittent block through the accessory pathway. With atrial extrastimuli on isuprel, the atrial ERP was 400/250. The AV node ERP was less than or equal to the atrial ERP and we never saw accessory pathway conduction when doing the atrial extrastimuli. With ventricular pacing on isuprel, there was VA conduction and looked like it was going retrograde up the AV node. The right ventricular ERP on isuprel was 400/220. I gave atrial extrastimuli and Isuprel up to triples. There was no sustained inducible SVT. At one point there was a short run of some type of SVT, could have just been PAT, but it did not last more than 20 seconds and was not able to be reproduced. I did do parahisian pacing at one point as well and when I pacing from the His at 8 volts at 400 milliseconds the stim to high right atrium was 260 milliseconds. Then I decreased the output to 3 volts and stim to HRA was 236 milliseconds showing that there was probably no retrograde conduction up the accessory pathway. I continued to try to induce any SVT with atrial extrastimuli and atrial burst pacing down to 200 on isuprel on then off isuprel during washout. I was unable to ever induce atrial fibrillation or any persisting SVT. Once her heart rate appropriately came back to her baseline all the catheters were removed from the body and the sheaths were pulled and manual compression was used to establish hemostasis. IMPRESSION: 1. Rzqlh-Eqiwfwoye-Wjilh pattern most likely the accessory pathway is very close to the [place] electrical conduction His region. 2. No sustained inducible supraventricular tachycardia. 3. No ventriculoatrial conduction via the accessory pathway or arteriovenous node off isuprel. PLAN: Monitor patient post-sedation, reassured patient that the accessory pathway is pretty benign and her risk for sudden cardiac or any sustained SVT is minimal. She is not to do any heavy lifting or squatting for a week. She can follow up in 1 month's time in my office with me. I attest to the content of the Intraoperative Record and any orders documented therein. Any exceptions are noted below. NAHOMI
[2017-04-21 17:45] VITALS: BP 120/71; PULSE 68; O2SAT 98
== END | disposition home or self-care (01) ==
LOC: C.EP 11:19
PROVIDERS: ATTEND Internal Medicine
DX: I45.6 Pre-excitation syndrome (principal); R00.2 Palpitations; F17.200 Nicotine dependence, unspecified, uncomplicated; K21.9 Gastro-esophageal reflux disease without esophagitis; Z83.3 Family history of diabetes mellitus

== ENCOUNTER 2020-08-14 12:20 | Observation (INO) ==
[2020-08-14] MEDS ORDERED: ONDANSETRON INJ 2 MG/ML 2 ML VIAL IV STA (13:24)
[2020-08-14] MEDS ORDERED: MoRPHine SULFATE 4 MG/ML 1 ML CARP\\VIAL IV STA ×2 (13:24→15:58)
[2020-08-14] MEDS ORDERED: SODIUM CHLORIDE 0.9% 1000ML 1,000 ML IV ONE (13:24)
--- NOTE | 2020-08-14 13:30 | Emergency Department Note ---
History of Present Illness General Chief complaint: Pelvic Pain Stated complaint: ovarian cyst removed wednesday, bruising Time Seen by Provider: 08/14/20 13:06 Source: patient Mode of arrival: ambulatory Limitations: no limitations History of Present Illness Provider complaint: LLQ pain/bruising, post-op Onset (ago): day(s) 4 Maximum Pain Intensity: 7 This 30-year-old female patient 5 days status post laparoscopic right ovarian cystectomy presents to the emergency department today for evaluation of left lower quadrant bruising, pelvic pain which began 1 day postoperatively, 4 days ago. The patient states she had what she believes to be uncomplicated surgery on Wednesday. She states on Wednesday, she noticed some left lower quadrant bruising radiating around toward the left flank which has been progressively worsening. The patient has been in contact with her WINDLACE MACHINE OPERATOR, Dr. Shepherd, who has seen pictures and ultimately referred the patient to the emergency de partment for CT imaging. The patient states she did prescribe an antibiotic for a possible UTI due to dysuria and the pelvic pain as well as temperature of 100 F 2 days ago. Patient is uncertain what antibiotic this is and has not picked it up or started it yet. She denies any syncope. She reports extreme pain which does occasionally make her feel nauseated and "like I might pass out". The patient states she had vaginal bleeding for 2 days after the surgery, but this is resolved since then. Patient denies any hematuria. She has been passing gas and last bowel movement was yesterday. This was an outpatient surgery and the patient was discharged same day. She has been taking Tylenol and ibuprofen without relief of her pain. Home Medications Medication Instructions Recorded Confirmed Type acetaminophen [Tylenol Extra 1,000 mg PO Q6H PRN 07/25/20 08/14/20 History Strength] famotidine [Pepcid] 40 mg PO HS 07/25/20 08/14/20 History ibuprofen 400 mg PO Q6H PRN 07/25/20 08/14/20 History clindamycin phosphate 1 applic TOPICAL BID 08/14/20 08/14/20 History doxycycline hyclate 100 mg PO BID PRN 08/14/20 08/14/20 History spironolactone 100 mg PO QPM 08/14/20 08/14/20 History Allergies Allergy/AdvReac Type Severity Reaction Status Date / Time latex Allergy Mild states Verified 08/14/20 16:37 bandaides and tape burn her skin coconut Allergy Unknown HIVES Verified 08/14/20 16:37 No Known Drug Allergies Allergy Unknown . Verified 08/14/20 16:37 watermelon Allergy Unknown HIVES Verified 08/14/20 16:37 Past Med/Surg History Medical History Abdominal cramping Dysfunctional uterine bleeding Dysmenorrhea GERD (gastroesophageal reflux disease) Hidradenitis suppurativa History of bronchitis Was getting frequently so given albuterol PRN, using albuterol daily during spring/fall. 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 Melendez. Per cardio 06/19/20 "she underwent EP study at [facility] several years ago without sustained or inducible arrhythmias. It was determined that the Accessory pathway was possibly very close to the [place] electrical system and ablation was not recommended. It was also felt her arrhythmia is likely low risk for sudden cardiac or sustained SVT. In February 2020, due to complaints of worsening palpitations, patient underwent ZIO monitor which demonstrated normal sinus rhythm without significant arrhythmias. Symptoms correlated to normal sinus rhythm or sinus tachycardia." Surgical History History of adenoidectomy History of electrophysiologic study History of esophagogastroduodenoscopy (EGD) History of excision of lesion breast History of hernia repair x3 History of surgery removal of HS growth from axilla Family History Grandfather (Maternal) Esophageal cancer Other No family history of adverse response to anesthesia Social History Smoking Status: Current every day smoker Cigarettes Per Day: 1/2 ppd; Second Hand Exposure: Yes; Hx Alcohol Use: Yes Hx Substance Use: No Preferred Language: Danish Communication Ability: Effective Marina Manager Required: No Beliefs That Will Affect Care: None Current Living Situation: Significant Other Feels Safe at Home: Yes Assistive Devices: Contacts and Glasses Review of Systems A total of 10 systems reviewed and were otherwise negative Physical Exam Vital Signs Vital Signs - 24 hr 08/14/20 12:22 08/14/20 13:58 08/14/20 14:00 Temperature 37.0 C Temperature Source Oral Pulse Rate 81 59 L 63 Pulse Rate [Right Finger] Pulse Rate from SpO2 Sensor Pulse Rhythm Regular Pulse Rhythm [Right Finger] Pulse Strength Normal Pulse Strength [Right Finger] Respiratory Rate 16 14 12 Respiratory Effort / Characteristics Non-Labored Respiratory Depth Normal Respiratory Pattern Regular Blood Pressure Blood Pressure [Right Arm] Blood Pressure Mean Blood Pressure Mean [Right Arm] Blood Pressure Position Sitting Blood Pressure Position [Right Arm] Pulse Oximetry 100 Oxygen Delivery Method Room Air Sepsis Recent Fever Within 48 Hours No Sepsis New/Unexplained Change in Mental Status N/A Sepsis Action Taken by Nursing No Action Required 08/14/20 14:30 08/14/20 15:00 08/14/20 15:29 Temperature Temperature Source Pulse Rate 62 70 71 Pulse Rate [Right Finger] Pulse Rate from SpO2 Sensor 69 Pulse Rhythm Pulse Rhythm [Right Finger] Pulse Strength Pulse Strength [Right Finger] Respiratory Rate 15 14 18 Respiratory Effort / Characteristics Respiratory Depth Respiratory Pattern Blood Pressure 115/56 L Blood Pressure [Right Arm] Blood Pressure Mean 72 Blood Pressure Mean [Right Arm] Blood Pressure Position Blood Pressure Position [Right Arm] Pulse Oximetry 100 Oxygen Delivery Method Sepsis Recent Fever Within 48 Hours Sepsis New/Unexplained Change in Mental Status Sepsis Action Taken by Nursing 08/14/20 15:30 08/14/20 17:09 08/14/20 17:10 Temperature Temperature Source Pulse Rate 49 L 56 L 61 Pulse Rate [Right Finger] 56 L Pulse Rate from SpO2 Sensor 49 L 60 Pulse Rhythm Pulse Rhythm [Right Finger] Regular Pulse Strength Pulse Strength [Right Finger] Normal Respiratory Rate 15 19 Respiratory Effort / Characteristics Non-Labored Respiratory Depth Normal Respiratory Pattern Regular Blood Pressure 115/71 Blood Pressure [Right Arm] 115/56 L Blood Pressure Mean 85 Blood Pressure Mean [Right Arm] 75 Blood Pressure Position Blood Pressure Position [Right Arm] Lying Pulse Oximetry 99 97 Oxygen Delivery Method Room Air Sepsis Recent Fever Within 48 Hours Sepsis New/Unexplained Change in Mental Status Sepsis Action Taken by Nursing 08/14/20 17:11 08/14/20 17:30 08/14/20 17:31 Temperature Temperature Source Pulse Rate 55 L 64 65 Pulse Rate [Right Finger] Pulse Rate from SpO2 Sensor 57 L 68 66 Pulse Rhythm Pulse Rhythm [Right Finger] Pulse Strength Pulse Strength [Right Finger] Respiratory Rate 16 18 17 Respiratory Effort / Characteristics Respiratory Depth Respiratory Pattern Blood Pressure 110/72 Blood Pressure [Right Arm] Blood Pressure Mean 77 Blood Pressure Mean [Right Arm] Blood Pressure Position Blood Pressure Position [Right Arm] Pulse Oximetry 97 98 98 Oxygen Delivery Method Sepsis Recent Fever Within 48 Hours Sepsis New/Unexplained Change in Mental Status Sepsis Action Taken by Nursing 08/14/20 18:00 08/14/20 18:01 08/14/20 18:02 Temperature Temperature Source Pulse Rate 50 L 56 L 63 Pulse Rate [Right Finger] Pulse Rate from SpO2 Sensor 52 L 58 L 61 Pulse Rhythm Pulse Rhythm [Right Finger] Pulse Strength Pulse Strength [Right Finger] Respiratory Rate 17 21 12 Respiratory Effort / Characteristics Respiratory Depth Respiratory Pattern Blood Pressure Blood Pressure [Right Arm] Blood Pressure Mean Blood Pressure Mean [Right Arm] Blood Pressure Position Blood Pressure Position [Right Arm] Pulse Oximetry 97 98 98 Oxygen Delivery Method Sepsis Recent Fever Within 48 Hours Sepsis New/Unexplained Change in Mental Status Sepsis Action Taken by Nursing 08/14/20 18:07 Temperature Temperature Source Pulse Rate 55 L Pulse Rate [Right Finger] Pulse Rate from SpO2 Sensor 55 L Pulse Rhythm Pulse Rhythm [Right Finger] Pulse Strength Pulse Strength [Right Finger] Respiratory Rate 18 Respiratory Effort / Characteristics Respiratory Depth Respiratory Pattern Blood Pressure 132/73 Blood Pressure [Right Arm] Blood Pressure Mean 86 Blood Pressure Mean [Right Arm] Blood Pressure Position Blood Pressure Position [Right Arm] Pulse Oximetry 100 Oxygen Delivery Method Sepsis Recent Fever Within 48 Hours Sepsis New/Unexplained Change in Mental Status Sepsis Action Taken by Nursing VITALS: Vitals are noted on the nurse's note and reviewed by myself. Vital signs stable. GENERAL: This is a 30-year-old white female, in no acute distress, nondiaphoretic, well-developed well-nourished. SKIN: The skin was without rashes, erythema, edema, or bruising. There is no tenting of the skin. Capillary refill less than 2 seconds. HEAD: Normocephalic atraumatic. EYES: Conjunctivae without injection, sclerae without icterus. NECK: Supple without nuchal rigidity. No lymphadenopathy. No thyromegaly. Cervical spine is nontender. No JVD. HEART: Regular rate and rhythm without murmurs gallops or rubs. LUNGS: Clear to auscultation bilaterally without wheezes, rales or rhonchi. No retractions or accessory muscle use. ABDOMEN: Positive bowel sounds x 4. Abdomen is soft, but diffusely tender, without masses or organomegaly. Ecchymosis noted in the left lower quadrant radiating toward the left flank. Diffuse guarding noted. GLASS WASHER - (An RN nurse shell trim tool setter was present throughout the entire GLASS WASHER procedure.) SPECULUM EXAM: - Water-soluble lubricant was applied to the plastic speculum and inserted into the vagina in a downward fashion towards the location of the cervix. When resistance was met, the speculum was opened to visualize the cervix. The cervical os was closed and without drainage. No lesions, masses, or purulent discharge noted. The speculum was slowly removed to visualize the vaginal wilks. No lesions, masses, or excoriations noted. Pt tolerated the procedure well and voiced no discomfort throughout the procedure. BIMANUAL EXAM: - MONS - Keegan Stage V. No lesions or growths noted. No palpable inguinal lymph nodes. - VULVA - skin color consistent with surrounding structures. No signs of irritation, edema, lesions, growths, or discharge. No vulvar or clitoral adhesions. No tenderness to palpation. - PERINEUM -no growths or lesions. Skin intact without breakdown or scars. - BARTHOLIN'S GLANDS/SKENE'S GLANDS -no enlargement or discharge noted. No tenderness with palpation. - URETHRA -no erythema, edema, discharge, or blood noted. - VAGINA - [place] and moist without lesions, vesicles, discharge, or growths noted. - CERVIX -no cervical motion tenderness appreciated. - UTERUS - Palpable and tender. - ADNEXA -no masses noted with palpation. Diffuse pelvic tenderness palpation. - RECTO-VAGINAL -no fissures, masses, or hemorrhoids visualized on minimal exam. MUSCULOSKELETAL: No muscle atrophy, erythema, or edema noted. Full range of motion without joint tenderness in all extremities. No tenderness to palpation. Normal gait. Strength 5/5 throughout. NEURO: Patient was alert and oriented to person place and time. No focal neurological deficits. Course Course The patient was seen and evaluated as above. An order was placed for continuous cardiac monitoring. The monitor shows a normal sinus rhythm at a rate of 61 bpm. IV access obtained, labs drawn. Pt. medicated with IV fluids, zofran, morphine. Imaging performed and reviewed by myself and radiologist as noted. Labs reviewed by myself. I discussed the case with Dr. Bailye, WINDLACE MACHINE OPERATOR machine container washer. She agrees that the patient should be observed versus go to surgery. She will speak with Dr. Shepherd and make a decision. I discussed the findings and recommendations with the patient at bedside. She is now reporting vaginal bleeding. I discussed this finding with Dr. Bailey. She states she did speak with Dr. Shepherd who recommended observation over surgery at this time. She will admit to gynecology service and place orders, but will see the patient later this evening. Patient medicated with repeat dose of 4 mg IV morphine. Pelvic examination completed as noted. Please see WINDLACE MACHINE OPERATOR dictation regarding ongoing management care of this patient. Administered Medications Lactated Ringer's (Lr) 1,000 mls @ 125 mls/hr IV .Q8H LENORE Stop: 09/13/20 18:14 Last Admin: 08/14/20 18:51 Dose: 125 mls/hr Documented by: [id number] Acetaminophen (Ofirmev) 1,000 mg in 100 mls @ 400 mls/hr IV Q8H PRN PRN Reason: Notification Stop: 08/17/20 18:11 Last Admin: 08/14/20 19:05 Dose: 400 mls/hr Documented by: [id number] Discontinued Medications Sodium Chloride (Nss 1000ml) 1,000 mls @ 999 mls/hr IV .Q1H1M ONE Stop: 08/14/20 14:24 Last Infusion: 08/14/20 14:56 Dose: 0 mls/hr Documented by: [id number] Admin: 08/14/20 13:50 Dose: 999 mls/hr Documented by: [id number] Ioversol (Ioversol 100ml) 92 ml IV ONCE ONE Stop: 08/14/20 14:50 Last Admin: 08/14/20 14:50 Dose: 92 ml Documented by: [id number] Morphine Sulfate (Morphine Sulfate 4 Mg/Ml 1 Ml Carp\\Vial) 4 mg IV NOW STA Stop: 08/14/20 13:25 Last Admin: 08/14/20 13:50 Dose: 4 mg Documented by: [id number] Morphine Sulfate (Morphine Sulfate 4 Mg/Ml 1 Ml Carp\\Vial) 4 mg IV NOW STA Stop: 08/14/20 15:59 Last Admin: 08/14/20 16:04 Dose: 4 mg Documented by: [id number] Ondansetron HCl (Ondansetron Inj 2 Mg/Ml 2 Ml Vial) 4 mg IV NOW STA Stop: 08/14/20 13:25 Last Admin: 08/14/20 13:50 Dose: 4 mg Documented by: [id number] Medical Decision Making Differential Diagnosis Differential diagnosis includes postoperative bleed, infection, UTI, ruptured ovarian cyst, dysfunctional uterine bleeding, anemia, malignancy, among others Medical Records Attestation: I reviewed the patient's medical records. Home Medications Current Medication List: was personally reviewed by me Laboratory Data Attestation: I reviewed the patient's lab results. Mild anemia with a hemoglobin of 10.8. No leukocytosis. No thrombocytopenia. Coags normal. Renal, hepatic function and electrolytes without significant abnormality. Total bilirubin is mildly elevated 1.3. Lipase 69. Urinalysis negative for evidence of infection. There is hematuria. Lactic acid 1.1. Urine test negative. Covid 19 antigen testing negative. Result diagrams: 08/14/20 12:50 08/14/20 12:50 Lab Results 08/14/20 08/14/20 08/14/20 Range/Units 12:50 12:50 12:50 WBC 9.43 (4.8-10.8) K/uL RBC 3.67 L (4.2-5.4) M/uL Hgb 10.8 L (12.0-16.0) g/dL Hct 31.5 L (37-47) % MCV 85.8 (80-100) fL MCH 29.4 (25-34) pg MCHC 34.3 (32-36) g/dL RDW Std Deviation 43.6 (36.4-46.3) fL RDW Coeff of Dana 13.8 (11.5-14.5) % Plt Count 287 (130-400) K/uL MPV 9.5 (7.4-10.4) fL Immature Gran % (Auto) 0.5 % Neut % (Auto) 72.2 % Lymph % (Auto) 16.9 % Hart % (Auto) 8.1 % Eos % (Auto) 2.2 % Baso % (Auto) 0.1 % Neut # (Auto) 6.81 H (1.4-6.5) K/uL Lymph # (Auto) 1.59 (1.2-3.4) K/uL Hart # (Auto) 0.76 H (0.11-0.59) K/uL Eos # (Auto) 0.21 (0-0.5) K/uL Baso # (Auto) 0.01 (0-0.2) K/uL Immature Gran # (Auto) 0.05 H (0.00-0.02) K/uL PT 11.2 (9.0-12.0) Seconds INR 1.1 (0.9-1.1) APTT 29.7 (21.0-31.0) Seconds PTT Ratio 1.1 Sodium 140 (136-145) mmol/L Potassium 3.8 (3.5-5.1) mmol/L Chloride 108 H (98-107) mmol/L Carbon Dioxide 23 (21-32) mmol/L Anion Gap 8.0 (3-11) BUN 14 (7-18) mg/dl Creatinine 0.74 (0.6-1.2) mg/dl Est Cr Clr Drug Dosing 117.8 ml/min Est GFR ( Amer) 126.0 Est GFR (Non-Af Amer) 108.7 BUN/Creatinine Ratio 19.1 (10-20) Glucose 87 (70-99) mg/dl Lactate (0.4-2.0) mmol/L Calcium 9.1 (8.5-10.1) mg/dl Total Bilirubin 1.3 H (0.2-1) mg/dl AST 27 (15-37) U/L ALT 19 (12-78) U/L Alkaline Phosphatase 58 (45-117) U/L Total Protein 7.3 (6.4-8.2) gm/dl Albumin 3.6 (3.4-5.0) gm/dl Globulin 3.7 (2.5-4.0) gm/dl Albumin/Globulin Ratio 1.0 (0.9-2) Lipase 69 L (73-393) U/L Urine Color Urine Appearance (Clear) Urine pH (4.5-7.5) Ur Specific [place] (1.000-1.030) Urine Protein (Negative) Urine Glucose (UA) (Negative) Urine Ketones (Negative) Urine Blood (Negative) Urine Nitrite (Negative) Urine Bilirubin (Negative) Urine Urobilinogen (Negative) Ur Leukocyte Esterase (Negative) Urine WBC (Auto) (0-5) /hpf Urine RBC (Auto) (0-4) /hpf U Hyaline Cast (Auto) (0-5) /lpf U Epithel Cells (Auto) (0-5) /lpf Urine Bacteria (Auto) (Negative) POC Ur Test (NEG) SARS-CoV-2 Ag (Rapid) (Negative) Blood Type Antibody Screen 08/14/20 08/14/20 08/14/20 Range/Units 14:32 14:32 15:37 WBC (4.8-10.8) K/uL RBC (4.2-5.4) M/uL Hgb (12.0-16.0) g/dL Hct (37-47) % MCV (80-100) fL MCH (25-34) pg MCHC (32-36) g/dL RDW Std Deviation (36.4-46.3) fL RDW Coeff of Dana (11.5-14.5) % Plt Count (130-400) K/uL MPV (7.4-10.4) fL Immature Gran % (Auto) % Neut % (Auto) % Lymph % (Auto) % Hart % (Auto) % Eos % (Auto) % Baso % (Auto) % Neut # (Auto) (1.4-6.5) K/uL Lymph # (Auto) (1.2-3.4) K/uL Hart # (Auto) (0.11-0.59) K/uL Eos # (Auto) (0-0.5) K/uL Baso # (Auto) (0-0.2) K/uL Immature Gran # (Auto) (0.00-0.02) K/uL PT (9.0-12.0) Seconds INR (0.9-1.1) APTT (21.0-31.0) Seconds PTT Ratio Sodium (136-145) mmol/L Potassium (3.5-5.1) mmol/L Chloride (98-107) mmol/L Carbon Dioxide (21-32) mmol/L Anion Gap (3-11) BUN (7-18) mg/dl Creatinine (0.6-1.2) mg/dl Est Cr Clr Drug Dosing ml/min Est GFR ( Amer) Est GFR (Non-Af Amer) BUN/Creatinine Ratio (10-20) Glucose (70-99) mg/dl Lactate 1.1 (0.4-2.0) mmol/L Calcium (8.5-10.1) mg/dl Total Bilirubin (0.2-1) mg/dl AST (15-37) U/L ALT (12-78) U/L Alkaline Phosphatase (45-117) U/L Total Protein (6.4-8.2) gm/dl Albumin (3.4-5.0) gm/dl Globulin (2.5-4.0) gm/dl Albumin/Globulin Ratio (0.9-2) Lipase (73-393) U/L Urine Color Yellow Urine Appearance Clear (Clear) Urine pH 5.5 (4.5-7.5) Ur Specific [place] > 1.045 H (1.000-1.030) Urine Protein Negative (Negative) Urine Glucose (UA) Negative (Negative) Urine Ketones 2+ H (Negative) Urine Blood 3+ H (Negative) Urine Nitrite Negative (Negative) Urine Bilirubin Negative (Negative) Urine Urobilinogen Negative (Negative) Ur Leukocyte Esterase Negative (Negative) Urine WBC (Auto) 1-5 (0-5) /hpf Urine RBC (Auto) >30 H (0-4) /hpf U Hyaline Cast (Auto) 1-5 (0-5) /lpf U Epithel Cells (Auto) >30 H (0-5) /lpf Urine Bacteria (Auto) Negative (Negative) POC Ur Test (NEG) SARS-CoV-2 Ag (Rapid) (Negative) Blood Type O Positive Antibody Screen NEGATIVE 08/14/20 08/14/20 Range/Units 15:37 15:59 WBC (4.8-10.8) K/uL RBC (4.2-5.4) M/uL Hgb (12.0-16.0) g/dL Hct (37-47) % MCV (80-100) fL MCH (25-34) pg MCHC (32-36) g/dL RDW Std Deviation (36.4-46.3) fL RDW Coeff of Dana (11.5-14.5) % Plt Count (130-400) K/uL MPV (7.4-10.4) fL Immature Gran % (Auto) % Neut % (Auto) % Lymph % (Auto) % Hart % (Auto) % Eos % (Auto) % Baso % (Auto) % Neut # (Auto) (1.4-6.5) K/uL Lymph # (Auto) (1.2-3.4) K/uL Hart # (Auto) (0.11-0.59) K/uL Eos # (Auto) (0-0.5) K/uL Baso # (Auto) (0-0.2) K/uL Immature Gran # (Auto) (0.00-0.02) K/uL PT (9.0-12.0) Seconds INR (0.9-1.1) APTT (21.0-31.0) Seconds PTT Ratio Sodium (136-145) mmol/L Potassium (3.5-5.1) mmol/L Chloride (98-107) mmol/L Carbon Dioxide (21-32) mmol/L Anion Gap (3-11) BUN (7-18) mg/dl Creatinine (0.6-1.2) mg/dl Est Cr Clr Drug Dosing ml/min Est GFR ( Amer) Est GFR (Non-Af Amer) BUN/Creatinine Ratio (10-20) Glucose (70-99) mg/dl Lactate (0.4-2.0) mmol/L Calcium (8.5-10.1) mg/dl Total Bilirubin (0.2-1) mg/dl AST (15-37) U/L ALT (12-78) U/L Alkaline Phosphatase (45-117) U/L Total Protein (6.4-8.2) gm/dl Albumin (3.4-5.0) gm/dl Globulin (2.5-4.0) gm/dl Albumin/Globulin Ratio (0.9-2) Lipase (73-393) U/L Urine Color Urine Appearance (Clear) Urine pH (4.5-7.5) Ur Specific [place] (1.000-1.030) Urine Protein (Negative) Urine Glucose (UA) (Negative) Urine Ketones (Negative) Urine Blood (Negative) Urine Nitrite (Negative) Urine Bilirubin (Negative) Urine Urobilinogen (Negative) Ur Leukocyte Esterase (Negative) Urine WBC (Auto) (0-5) /hpf Urine RBC (Auto) (0-4) /hpf U Hyaline Cast (Auto) (0-5) /lpf U Epithel Cells (Auto) (0-5) /lpf Urine Bacteria (Auto) (Negative) POC Ur Test NEG (NEG) SARS-CoV-2 Ag (Rapid) Negative (Negative) Blood Type Antibody Screen Imaging Data Radiologist's Impression: XR chest 1V portable HISTORY: Generalized abdominal pain COMPARISON: Chest 04/24/2015. FINDINGS: Small linear density within the right midlung zone suggesting scarring or atelectasis. Otherwise, the lungs are clear. No pleural effusions. No pneumothorax. The heart is normal in size. IMPRESSION: No acute process. ACT 112: Negative or not required by law. Electronically signed by: Osvaldo Navarrete M.D. 08/14/2020 1:[address] SCAN OF THE ABDOMEN AND PELVIS WITH IV CONTRAST CLINICAL HISTORY: Left lower quadrant abdominal pain. Bruising. Recent pelvic surgery. COMPARISON STUDY: Abdominal CT dated 03/05/2020. TECHNIQUE: Following the IV administration of 92 cc of Optiray 320, CT scan of the abdomen and pelvis is performed from the lung bases to the proximal femora. Images are reviewed in the axial, sagittal, and coronal planes. IV contrast was administered without complication. A dose lowering technique was utilized adhering to the principles of ALARA. CT DOSE: 871.76 mGycm FINDINGS: Lung bases: The heart is normal in size and without pericardial effusion. The lung bases are clear noting bibasilar atelectasis. Liver: The contrast-enhanced liver is normal in size, contour, and attenuation. There is no intrahepatic biliary ductal dilatation. The hepatic veins and portal veins are patent. Gallbladder: Unremarkable. Spleen: Normal in size and attenuation. Pancreas: Unremarkable. Adrenal glands: Unremarkable. Kidneys: The contrast enhanced kidneys are normal in size and without hydronephrosis. The kidneys enhance symmetrically. Abdominal vasculature: The abdominal aorta is normal in course and caliber. Bowel: There is no bowel obstruction. Mild fecal retention is noted in the colon. The appendix is well-visualized and normal. Peritoneum: There is a moderate volume of hemoperitoneum the pelvis. Trace blood is seen along the inferior margin of the liver. No active extravasation is identified. No intraperitoneal free air is identified. Lymphadenopathy: None. Pelvic viscera: The bladder and uterus are normal as visualized. The ovaries are normal as imaged and surrounded by hemoperitoneum. There is evidence of previous umbilical hernia repair. Skeletal structures: No lytic or blastic lesions are seen. Soft tissues: Soft tissue infiltration is identified in the left flank, with foci of deep soft tissue edema in the left ventral pelvis extending towards the groin. IMPRESSION: 1. There is a moderate volume of hemoperitoneum in the pelvis. This may be related to recent surgery, or could represent the sequelae of a ruptured hemorrhagic ovarian cyst. Correlation with serum beta-hCG is recommended as a ruptured ectopic could also have this appearance. 2. Changes in the left lower quadrant abdominal/pelvic wall are likely related to the reported history of recent surgery. ACT 112: Negative or not required by law. Electronically signed by: Eddy Jackson M.D. 08/14/2020 3:09 PM Blood Pressure Blood Pressure Findings: Normal blood pressure MDM Narrative This 30-year-old female patient presents to the emergency department today, 5 days status post GLASS WASHER/pelvic surgery. The patient had a laparoscopic ovarian cystectomy. She developed bruising and pain in the left lower quadrant and to the left flank which has been worsening since 1 day postop. She was referred to the emergency department by WINDLACE MACHINE OPERATOR. In the ED, the patient appeared to be hemodynamically stable at this time, however she was in a significant amount of pain with diffuse guarding on palpation of her abdomen. There is a moderate volume of hemoperitoneum noted in the pelvis, likely associated with the recent surgery. I did discuss the case with WINDLACE MACHINE OPERATOR on-call, Dr. Bailey, who did agree to admit the patient for at least observation and will consider operating if there is any decline in her hemodynamic status. The patient did report some vaginal bleeding while in the department. Pelvic examination revealed a small amount of blood within the vagina, but no active hemorrhage from the cervix. The cervical os was closed. The patient will be admitted to the [facility] service at this time. Please see WINDLACE MACHINE OPERATOR dictation regarding ongoing management care of this patient. The chart was completed utilizing [employer] voice recognition software. Grammatical errors, random word insertions, pronoun errors, and incomplete sentences are an occasional consequence of this system due to software limitations, ambient noise, and hardware issues. Any formal questions or concerns about the content, text, or information contained within the body of this dictation should be directly addressed to the provider for clarification. Impression & Plan S/P laparoscopic surgery, Abdominal pain, Hemoperitoneum, Vaginal bleeding Discharge Plan Visit Data Chief Complaint: Pelvic Pain Stated Complaint: ovarian cyst removed wednesday, bruising ED Provider: [facility] ED Midlevel Provider: Franci Jones Discharge Problem: S/P laparoscopic surgery, Abdominal pain, Hemoperitoneum, Vaginal bleeding Patient Disposition: Admitted As Inpatient Discharge Instructions Interventions: ED Discharge Assessment Last Done: 08/14/20 18:37 Discharge Problem: Abdominal pain Qualifiers: Abdominal location: generalized Qualified Code(s): R10.84 - Generalized abdomi nal pain
[2020-08-14 13:37] LABS: Basophils # (auto) 0.01 K/uL (0-0.2); Basophils % (auto) 0.1 %; Eosinophils # (auto) 0.21 K/uL (0-0.5); Eosinophils % (auto) 2.2 %; Hematocrit (blood only) 31.5 % (37-47); Hemoglobin 10.8 g/dL (12.0-16.0); Immature Granulocytes # (auto) 0.05 K/uL (0.00-0.02); Immature Granulocytes % (auto) 0.5 %; Lymphocytes # (auto) 1.59 K/uL (1.2-3.4); Lymphocytes % (auto) 16.9 %; Mean Corpuscular Hemoglobin 29.4 pg (25-34); Mean Corpuscular Hgb Conc 34.3 g/dL (32-36); Mean Corpuscular Volume 85.8 fL (80-100); Mean Platelet Volume 9.5 fL (7.4-10.4); Monocytes # (auto) 0.76 K/uL (0.11-0.59); Monocytes % (auto) 8.1 %; Neutrophils # (auto) 6.81 K/uL (1.4-6.5); Neutrophils % (auto) 72.2 %; Platelet Count 287 K/uL (130-400); RDW Coefficient of Variation 13.8 % (11.5-14.5); RDW Standard Deviation 43.6 fL (36.4-46.3); Red Blood Count 3.67 M/uL (4.2-5.4); White Blood Count 9.43 K/uL (4.8-10.8)
[2020-08-14 13:43] LABS: Albumin Level 3.6 gm/dl (3.4-5.0); BUN Creatinine Ratio 19.1 (10-20); Calcium 9.1 mg/dl (8.5-10.1); Creatinine Clr Calc Pharmacy 117.8 ml/min; Est GFR (Non-African American) 108.7; Potassium 3.8 mmol/L (3.5-5.1)
[2020-08-14 13:46] LABS: Bilirubin,Total 1.3 mg/dl (0.2-1); Globulin 3.7 gm/dl (2.5-4.0); Total Protein 7.3 gm/dl (6.4-8.2)
[2020-08-14 13:48] LABS: INR 1.1 (0.9-1.1); Partial Thromboplastin Ratio 1.1; Partial Thromboplastin Time 29.7 Seconds (21.0-31.0); Prothrombin Time 11.2 Seconds (9.0-12.0)
--- NOTE | 2020-08-14 13:49 | XRay Report ---
XR chest 1V portable HISTORY: Generalized abdominal pain COMPARISON: Chest 04/24/2015. FINDINGS: Small linear density within the right midlung zone suggesting scarring or atelectasis. Othe rwise, the lungs are clear. No pleural effusions. No pneumothorax. The heart is normal in size. IMPRESSION: No acute process. ACT 112: Negative or not required by law. Electronically signed by: Osvaldo Navarrete M.D. 08/14/2020 1:48 PM
[2020-08-14] MEDS ORDERED: IOVERSOL 100ml IV ONE (14:49)
--- NOTE | 2020-08-14 15:10 | CT Scan Report ---
CT SCAN OF THE ABDOMEN AND PELVIS WITH IV CONTRAST CLINICAL HISTORY: Left lower quadrant abdominal pain. Bruising. Recent pelvic surgery. COMPARISON STUDY: Abdominal CT dated 03/05/2020. TECHNIQUE: Following the IV administration of 92 cc of Optiray 320, CT scan of the abdomen and pelvi s is performed from the lung bases to the proximal femora. Images are reviewed in the axial, sagittal , and coronal planes. IV contrast was administered without complication. A dose lowering technique wa s utilized adhering to the principles of ALARA. CT DOSE: 871.76 mGycm FINDINGS: Lung bases: The heart is normal in size and without pericardial effusion. The lung bases are clear no ting bibasilar atelectasis. Liver: The contrast-enhanced liver is normal in size, contour, and attenuation. There is no intrahepa tic biliary ductal dilatation. The hepatic veins and portal veins are patent. Gallbladder: Unremarkable. Spleen: Normal in size and attenuation. Pancreas: Unremarkable. Adrenal glands: Unremarkable. Kidneys: The contrast enhanced kidneys are normal in size and without hydronephrosis. The kidneys enh ance symmetrically. Abdominal vasculature: The abdominal aorta is normal in course and caliber. Bowel: There is no bowel obstruction. Mild fecal retention is noted in the colon. The appendix is we ll-visualized and normal. Peritoneum: There is a moderate volume of hemoperitoneum the pelvis. Trace blood is seen along the in ferior margin of the liver. No active extravasation is identified. No intraperitoneal free air is jaya ntified. Lymphadenopathy: None. Pelvic viscera: The bladder and uterus are normal as visualized. The ovaries are normal as imaged and surrounded by hemoperitoneum. There is evidence of previous umbilical hernia repair. Skeletal structures: No lytic or blastic lesions are seen. Soft tissues: Soft tissue infiltration is identified in the left flank, with foci of deep soft tissue edema in the left ventral pelvis extending towards the groin. IMPRESSION: 1. There is a moderate volume of hemoperitoneum in the pelvis. This may be related to recent surgery, or could represent the sequelae of a ruptured hemorrhagic ovarian cyst. Correlation with serum beta- hCG is recommended as a ruptured ectopic could also have this appearance. 2. Changes in the left lower quadrant abdominal/pelvic wall are likely related to the reported histor y of recent surgery. ACT 112: Negative or not required by law. Electronically signed by: Eddy Jackson M.D. 08/14/2020 3:09 PM
[2020-08-14 15:56] LABS: Appearance Urine Clear (Clear); Bacteria Urine Automated Negative (Negative); Bilirubin Urine Negative (Negative); Blood Urine 3+ (Negative); Color Urine Yellow; Epithelial Cell Urine Auto >30 /lpf (0-5); Glucose Urine UA Negative (Negative); Ketones Urine 2+ (Negative); Leukocyte Esterase Urine Negative (Negative); Nitrite Urine Negative (Negative); Protein Urine Negative (Negative); RBC Urine Automated >30 /hpf (0-4); Specific Gravity Urine > 1.045 (1.000-1.030); Urobilinogen Urine Negative (Negative); pH Urine 5.5 (4.5-7.5)
[2020-08-14] MEDS ORDERED: ONDANSETRON INJ 2 MG/ML 2 ML VIAL IV PRN (18:12)
[2020-08-14] MEDS ORDERED: POLYETHYLENE (MIRALAX) 17 GM PACK PO PRN (18:12)
[2020-08-14] MEDS ORDERED: MoRPHine SULFATE 4 MG/ML 1 ML CARP\\VIAL IV PRN (18:12)
[2020-08-14] MEDS ORDERED: ACETAMINOPHEN 1,000 MG/100 ML VIAL IV PRN (18:12)
[2020-08-14] MEDS ORDERED: ALUMINUM/MAGNESIUM/SIMETH (MAALOX MAX) 30 ML UDC PO PRN (18:12)
[2020-08-14] MEDS ORDERED: MAGNESIUM HYDROXIDE SUSP 30 ML UDC PO PRN (18:12)
[2020-08-14] MEDS: LACTATED RINGER'S 1,000 ML IV SCH ×2 (18:51→21:25)
[2020-08-14 19:21] LABS: Basophils # (auto) 0.01 K/uL (0-0.2); Basophils % (auto) 0.1 %; Eosinophils # (auto) 0.26 K/uL (0-0.5); Eosinophils % (auto) 3.2 %; Hematocrit (blood only) 27.7 % (37-47); Hemoglobin 9.3 g/dL (12.0-16.0); Immature Granulocytes # (auto) 0.02 K/uL (0.00-0.02); Immature Granulocytes % (auto) 0.2 %; Lymphocytes # (auto) 1.82 K/uL (1.2-3.4); Lymphocytes % (auto) 22.1 %; Mean Corpuscular Hemoglobin 29.2 pg (25-34); Mean Corpuscular Hgb Conc 33.6 g/dL (32-36); Mean Corpuscular Volume 87.1 fL (80-100); Mean Platelet Volume 8.9 fL (7.4-10.4); Monocytes # (auto) 0.91 K/uL (0.11-0.59); Neutrophils # (auto) 5.23 K/uL (1.4-6.5); Neutrophils % (auto) 63.4 %; Platelet Count 233 K/uL (130-400); RDW Coefficient of Variation 13.8 % (11.5-14.5); RDW Standard Deviation 43.9 fL (36.4-46.3); Red Blood Count 3.18 M/uL (4.2-5.4); White Blood Count 8.25 K/uL (4.8-10.8)
--- NOTE | 2020-08-14 19:57 | History & Physical Report ---
Date of Service August 14, 2020 Assessment & Plan (1) S/P laparoscopic surgery: (2) Abdominal pain: Patient is a 30-year-old G0 female with abdominal pain, S/P Laparoscopy, right ovarian cystectomy on 08/09, VSS Afebrile Moderate hemoperitoneum H&H stable Plan to admit for pain control, repeat H&H and possible to take her to OR if H7H drops or pain does not improve Discussed with her surgeon, Dr Shepherd All questions were answered (3) Hemoperitoneum: (4) Vaginal bleeding: (5) Hematoma of abdominal wall: Admission and Anticipated Discharge Date Admission Date: August 14, 2020 History of Present Illness Primary Care Provider: Hayley Jurado DO Patient is 30 yo G0 female who is s/p Laparoscopy, removal of ovarian cyst and endometrioma on 08/09/20 and was discharged on same day. She states she has never felt better, has been having lower abdominal pain and left abdominal wall/flank hematoma. She noticed hematoma next day after surgery and it was small. It got bigger yesterday when she sent a picture to her surgeon Dr. Shepherd who recommended to mary it and observe. Patient states her pain got worse today and hematoma got larger and she called the office and recommended by Dr. Shepherd to come to the ER. Her pain has been more in the lower abdomen/pelvis, more with movement and c oughing. Can be up to 8-9/10, Percocet and Motrin that she has been taking at home were not helping. She also had fever 2 days ago which was 100.2 and her urination was difficult and painful. She was sent in prescription for antibiotics but has not had a chance to sisal picker. She states she is able to eat and drink slowly but does not have any appetite since surgery, she denies any vomiting. She has been passing gas and moved her bowels yesterday and she has been constipated. She had light vaginal bleeding for 2 days after surgery and stopped started again as light bleeding. She denies dizziness, lightheadedness upon ambulation, denies chest pain/ shortness of breath, palpitation. She has a history of W VF syndrome and sees cardiology for that. She was cleared for surgery by mold yard supervisor. She has gastritis and polyps in her stomach for which she had endoscopy recently and was put on Pepcid. She is a daily smoker, smokes half pack a day. She has a history of hidradenitis suppurativa, clindamycin and spironolactone as needed. Allergies Allergy/AdvReac Type Severity Reaction Status Date / Time latex Allergy Mild states Verified 08/14/20 16:37 bandaides and tape burn her skin coconut Allergy Unknown HIVES Verified 08/14/20 16:37 No Known Drug Allergies Allergy Unknown . Verified 08/14/20 16:37 watermelon Allergy Unknown HIVES Verified 08/14/20 16:37 Home Medications Medication Instructions Recorded Confirmed Type acetaminophen [Tylenol Extra 1,000 mg PO Q6H PRN 07/25/20 08/14/20 History Strength] famotidine [Pepcid] 40 mg PO HS 07/25/20 08/14/20 History ibuprofen 400 mg PO Q6H PRN 07/25/20 08/14/20 History clindamycin phosphate 1 applic TOPICAL BID 08/14/20 08/14/20 History doxycycline hyclate 100 mg PO BID PRN 08/14/20 08/14/20 History spironolactone 100 mg PO QPM 08/14/20 08/14/20 History Patient History Medical History Abdominal cramping Dysfunctional uterine bleeding Dysmenorrhea GERD (gastroesophageal reflux disease) Hidradenitis suppurativa History of bronchitis Was getting frequently so given albuterol PRN, using albuterol daily during spring/fall. 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 Per cardio 06/19/20 "she underwent EP study at [facility] several years ago without sustained or inducible arrhythmias. 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 It was also felt her arrhythmia is likely low risk for sudden cardiac or sustained SVT. In February 2020, due to complaints of worsening palpitations, patient underwent ZIO monitor which demonstrated normal sinus rhythm without significant arrhythmias. Symptoms correlated to normal sinus rhythm or sinus tachycardia." Surgical History History of adenoidectomy History of electrophysiologic study History of esophagogastroduodenoscopy (EGD) History of excision of lesion breast History of hernia repair x3 History of surgery removal of HS growth from axilla Family History Grandfather (Maternal) Esophageal cancer Other No family history of adverse response to anesthesia Social History Smoking Status: Current every day smoker Cigarettes Per Day: 1/2 ppd; Second Hand Exposure: Yes; Do You Dip or Chew Tobacco: No; Hx Alcohol Use: Yes Hx Substance Use: No Preferred Language: Malian Communication Ability: Effective Injection Molding Machine Setter Required: No Beliefs That Will Affect Care: None Current Living Situation: Significant Other Other Information That Helps Us Care for You: No Feels Safe at Home: Yes Safety Concerns: Feels Safe At This Time Assistive Devices: Glasses Review of Systems All systems reviewed & are unremarkable except as noted in HPI & below Physical Exam Constitutional: WD/WN, vitals as above + ill appearing (seems uncomfortable,) and + obese Respiratory: normal respiratory effort, lungs clear to auscultation Cardiovascular: Rate/Rhythm: regular rate Heart Sounds: normal S1 and normal S2 Gastrointestinal (Abdomen): Inspection/Auscultation: abdomen normal to inspection, normal bowel sounds and + abdominal wall ecchymosis (LL abdominal wall and flank area, about 10x20 in size) Percussion/Palpation: + abdomen tender (diffuse, more on suprapubic area) Incisions C/D/I Musculoskeletal: Head/Neck/Chest: + head abnormal to inspection Extremities: extremities normal to inspection Gait: normal gait Results & Data ([facility]) Vital Signs (Past 12 Hours) Vital Signs Temp Pulse Pulse Resp BP BP Pulse Ox 08/14/20 18:31 60 13 108/57 L 08/14/20 18:30 60 16 98 08/14/20 18:07 55 L 18 132/73 100 08/14/20 18:02 63 12 98 08/14/20 18:01 56 L 21 98 08/14/20 18:00 50 L 17 97 08/14/20 17:31 65 17 98 08/14/20 17:30 64 18 110/72 98 08/14/20 17:11 55 L 16 97 08/14/20 17:10 61 115/71 97 08/14/20 17:09 56 L 19 08/14/20 15:30 49 L 56 L 15 115/56 L 99 08/14/20 15:29 71 18 115/56 L 100 08/14/20 15:00 70 14 08/14/20 14:30 62 15 08/14/20 14:00 63 12 08/14/20 13:58 59 L 14 08/14/20 12:22 37.0 C 81 16 100 Laboratory Results Lab Results 08/14/20 08/14/20 08/14/20 Range/Units 12:50 12:50 12:50 WBC 9.43 (4.8-10.8) K/uL RBC 3.67 L (4.2-5.4) M/uL Hgb 10.8 L (12.0-16.0) g/dL Hct 31.5 L (37-47) % MCV 85.8 (80-100) fL MCH 29.4 (25-34) pg MCHC 34.3 (32-36) g/dL RDW Std Deviation 43.6 (36.4-46.3) fL RDW Coeff of Dana 13.8 (11.5-14.5) % Plt Count 287 (130-400) K/uL MPV 9.5 (7.4-10.4) fL Immature Gran % (Auto) 0.5 % Neut % (Auto) 72.2 % Lymph % (Auto) 16.9 % [place] % (Auto) 8.1 % Eos % (Auto) 2.2 % Baso % (Auto) 0.1 % Neut # (Auto) 6.81 H (1.4-6.5) K/uL Lymph # (Auto) 1.59 (1.2-3.4) K/uL [place] # (Auto) 0.76 H (0.11-0.59) K/uL Eos # (Auto) 0.21 (0-0.5) K/uL Baso # (Auto) 0.01 (0-0.2) K/uL Immature Gran # (Auto) 0.05 H (0.00-0.02) K/uL PT 11.2 (9.0-12.0) Seconds INR 1.1 (0.9-1.1) APTT 29.7 (21.0-31.0) Seconds PTT Ratio 1.1 Sodium 140 (136-145) mmol/L Potassium 3.8 (3.5-5.1) mmol/L Chloride 108 H (98-107) mmol/L Carbon Dioxide 23 (21-32) mmol/L Anion Gap 8.0 (3-11) BUN 14 (7-18) mg/dl Creatinine 0.74 (0.6-1.2) mg/dl Est Cr Clr Drug Dosing 117.8 ml/min Est GFR ( Amer) 126.0 Est GFR (Non-Af Amer) 108.7 BUN/Creatinine Ratio 19.1 (10-20) Glucose 87 (70-99) mg/dl Lactate (0.4-2.0) mmol/L Calcium 9.1 (8.5-10.1) mg/dl Total Bilirubin 1.3 H (0.2-1) mg/dl AST 27 (15-37) U/L ALT 19 (12-78) U/L Alkaline Phosphatase 58 (45-117) U/L Total Protein 7.3 (6.4-8.2) gm/dl Albumin 3.6 (3.4-5.0) gm/dl Globulin 3.7 (2.5-4.0) gm/dl Albumin/Globulin Ratio 1.0 (0.9-2) Lipase 69 L (73-393) U/L Urine Color Urine Appearance (Clear) Urine pH (4.5-7.5) Ur Specific [place] (1.000-1.030) Urine Protein (Negative) Urine Glucose (UA) (Negative) Urine Ketones (Negative) Urine Blood (Negative) Urine Nitrite (Negative) Urine Bilirubin (Negative) Urine Urobilinogen (Negative) Ur Leukocyte Esterase (Negative) Urine WBC (Auto) (0-5) /hpf Urine RBC (Auto) (0-4) /hpf U Hyaline Cast (Auto) (0-5) /lpf U Epithel Cells (Auto) (0-5) /lpf Urine Bacteria (Auto) (Negative) POC Ur Test (NEG) SARS-CoV-2 Ag (Rapid) (Negative) Blood Type Antibody Screen 12/23/20 12/23/20 12/23/20 Range/Units 14:32 14:32 15:37 WBC (4.8-10.8) K/uL RBC (4.2-5.4) M/uL Hgb (12.0-16.0) g/dL Hct (37-47) % MCV (80-100) fL MCH (25-34) pg MCHC (32-36) g/dL RDW Std Deviation (36.4-46.3) fL RDW Coeff of Dana (11.5-14.5) % Plt Count (130-400) K/uL MPV (7.4-10.4) fL Immature Gran % (Auto) % Neut % (Auto) % Lymph % (Auto) % [place] % (Auto) % Eos % (Auto) % Baso % (Auto) % Neut # (Auto) (1.4-6.5) K/uL Lymph # (Auto) (1.2-3.4) K/uL [place] # (Auto) (0.11-0.59) K/uL Eos # (Auto) (0-0.5) K/uL Baso # (Auto) (0-0.2) K/uL Immature Gran # (Auto) (0.00-0.02) K/uL PT (9.0-12.0) Seconds INR (0.9-1.1) APTT (21.0-31.0) Seconds PTT Ratio Sodium (136-145) mmol/L Potassium (3.5-5.1) mmol/L Chloride (98-107) mmol/L Carbon Dioxide (21-32) mmol/L Anion Gap (3-11) BUN (7-18) mg/dl Creatinine (0.6-1.2) mg/dl Est Cr Clr Drug Dosing ml/min Est GFR ( Amer) Est GFR (Non-Af Amer) BUN/Creatinine Ratio (10-20) Glucose (70-99) mg/dl Lactate 1.1 (0.4-2.0) mmol/L Calcium (8.5-10.1) mg/dl Total Bilirubin (0.2-1) mg/dl AST (15-37) U/L ALT (12-78) U/L Alkaline Phosphatase (45-117) U/L Total Protein (6.4-8.2) gm/dl Albumin (3.4-5.0) gm/dl Globulin (2.5-4.0) gm/dl Albumin/Globulin Ratio (0.9-2) Lipase (73-393) U/L Urine Color Yellow Urine Appearance Clear (Clear) Urine pH 5.5 (4.5-7.5) Ur Specific [place] > 1.045 H (1.000-1.030) Urine Protein Negative (Negative) Urine Glucose (UA) Negative (Negative) Urine Ketones 2+ H (Negative) Urine Blood 3+ H (Negative) Urine Nitrite Negative (Negative) Urine Bilirubin Negative (Negative) Urine Urobilinogen Negative (Negative) Ur Leukocyte Esterase Negative (Negative) Urine WBC (Auto) 1-5 (0-5) /hpf Urine RBC (Auto) >30 H (0-4) /hpf U Hyaline Cast (Auto) 1-5 (0-5) /lpf U Epithel Cells (Auto) >30 H (0-5) /lpf Urine Bacteria (Auto) Negative (Negative) POC Ur Test (NEG) SARS-CoV-2 Ag (Rapid) (Negative) Blood Type O Positive Antibody Screen NEGATIVE 08/14/20 08/14/20 08/14/20 Range/Units 15:37 15:59 19:14 WBC 8.25 (4.8-10.8) K/uL RBC 3.18 L (4.2-5.4) M/uL Hgb 9.3 L (12.0-16.0) g/dL Hct 27.7 L (37-47) % MCV 87.1 (80-100) fL MCH 29.2 (25-34) pg MCHC 33.6 (32-36) g/dL RDW Std Deviation 43.9 (36.4-46.3) fL RDW Coeff of Dana 13.8 (11.5-14.5) % Plt Count 233 (130-400) K/uL MPV 8.9 (7.4-10.4) fL Immature Gran % (Auto) 0.2 % Neut % (Auto) 63.4 % Lymph % (Auto) 22.1 % [place] % (Auto) 11.0 % Eos % (Auto) 3.2 % Baso % (Auto) 0.1 % Neut # (Auto) 5.23 (1.4-6.5) K/uL Lymph # (Auto) 1.82 (1.2-3.4) K/uL [place] # (Auto) 0.91 H (0.11-0.59) K/uL Eos # (Auto) 0.26 (0-0.5) K/uL Baso # (Auto) 0.01 (0-0.2) K/uL Immature Gran # (Auto) 0.02 (0.00-0.02) K/uL PT (9.0-12.0) Seconds INR (0.9-1.1) APTT (21.0-31.0) Seconds PTT Ratio Sodium (136-145) mmol/L Potassium (3.5-5.1) mmol/L Chloride (98-107) mmol/L Carbon Dioxide (21-32) mmol/L Anion Gap (3-11) BUN (7-18) mg/dl Creatinine (0.6-1.2) mg/dl Est Cr Clr Drug Dosing ml/min Est GFR ( Amer) Est GFR (Non-Af Amer) BUN/Creatinine Ratio (10-20) Glucose (70-99) mg/dl Lactate (0.4-2.0) mmol/L Calcium (8.5-10.1) mg/dl Total Bilirubin (0.2-1) mg/dl AST (15-37) U/L ALT (12-78) U/L Alkaline Phosphatase (45-117) U/L Total Protein (6.4-8.2) gm/dl Albumin (3.4-5.0) gm/dl Globulin (2.5-4.0) gm/dl Albumin/Globulin Ratio (0.9-2) Lipase (73-393) U/L Urine Color Urine Appearance (Clear) Urine pH (4.5-7.5) Ur Specific [place] (1.000-1.030) Urine Protein (Negative) Urine Glucose (UA) (Negative) Urine Ketones (Negative) Urine Blood (Negative) Urine Nitrite (Negative) Urine Bilirubin (Negative) Urine Urobilinogen (Negative) Ur Leukocyte Esterase (Negative) Urine WBC (Auto) (0-5) /hpf Urine RBC (Auto) (0-4) /hpf U Hyaline Cast (Auto) (0-5) /lpf U Epithel Cells (Auto) (0-5) /lpf Urine Bacteria (Auto) (Negative) POC Ur Test NEG (NEG) SARS-CoV-2 Ag (Rapid) Negative (Negative) Blood Type Antibody Screen (1) Abdominal pain Abdominal location: generalized Qualified Code(s): R10.84 - Generalized abdominal pain
--- NOTE | 2020-08-14 20:45 | Obstetrical Progress Note ---
Date of Service August 14, 2020 Assessment & Plan Admission and Anticipated Discharge Date Admission Date: August 14, 2020 Subjective She is reevaluated. Her pain is better since she received IV Tylenol She desires to use the bathroom, she has not voided since 2 PM. She ambulated by herself without dizziness or lightheadedness. She voided small amount of dark concentrated urine. She has not been drinking or eating today. We will give her IV fluid bolus and continue to monitor closely. I spoke with Dr. Shepherd and updated her. We will observe her closely overnight and reevaluate her possible surgery or not. Results & Data ([facility]) Vital Signs (Past 12 Hours) Vital Signs Temp Pulse Pulse Resp BP BP Pulse Ox 08/14/20 18:50 36.5 C 55 L 19 123/69 98 08/14/20 18:31 60 13 108/57 L 08/14/20 18:30 60 16 98 08/14/20 18:07 55 L 18 132/73 100 08/14/20 18:02 63 12 98 08/14/20 18:01 56 L 21 98 08/14/20 18:00 50 L 17 97 08/14/20 17:31 65 17 98 08/14/20 17:30 64 18 110/72 98 08/14/20 17:11 55 L 16 97 08/14/20 17:10 61 115/71 97 08/14/20 17:09 56 L 19 08/14/20 15:30 49 L 56 L 15 115/56 L 99 08/14/20 15:29 71 18 115/56 L 100 08/14/20 15:00 70 14 08/14/20 14:30 62 15 08/14/20 14:00 63 12 08/14/20 13:58 59 L 14 08/14/20 12:22 37.0 C 81 16 100
[2020-08-14] MEDS ORDERED: SPIRONOLACTONE 100 MG TAB PO SCH (21:00)
[2020-08-14] MEDS ORDERED: FAMOTIDINE 40 MG TABLET PO SCH (21:00)
[2020-08-14] MEDS ORDERED: LACTATED RINGER'S 1,000 ML IV ONE (22:45)
[2020-08-14] MEDS ORDERED: SIMETHICONE 80 MG CHEW PO PRN (23:18)
[2020-08-14 23:30] LABS: Hematocrit (blood only) 28.3 % (37-47); Hemoglobin 9.5 g/dL (12.0-16.0)
--- NOTE | 2020-08-14 23:38 | Obstetrical Progress Note ---
Date of Service August 14, 2020 Assessment & Plan Admission and Anticipated Discharge Date Admission Date: August 14, 2020 Subjective Patient is reevaluated. She felt pressure on suprapubic area. It feels like air bubbles trying to come out per patient. We scanned her bladder and found 358 mL of urine. She got up urinated 250 mL of urine and came back to bed without problems. Abdomen soft, nondistended, suprapubic tenderness present, left flank tenderness present over bruise, no tenderness on the right flank mid abdominal area, no upper abdominal tenderness. Her H&H is stable Vital signs stable, pulse ox is continues, pulse high 50s to low 60s, oxygen 99% room air Plan to continue to monitor, pain management with IV Demerol this time, Pepcid, simethicone, milk of magnesia for bowel care. Repeat H&H in the morning. Results & Data ([facility]) Vital Signs (Past 12 Hours) Vital Signs Temp Pulse Pulse Resp BP BP Pulse Ox 08/14/20 22:48 52 L 103/66 97 08/14/20 18:50 36.5 C 55 L 19 123/69 98 08/14/20 18:31 60 13 108/57 L 08/14/20 18:30 60 16 98 08/14/20 18:07 55 L 18 132/73 100 08/14/20 18:02 63 12 98 08/14/20 18:01 56 L 21 98 08/14/20 18:00 50 L 17 97 08/14/20 17:31 65 17 98 08/14/20 17:30 64 18 110/72 98 08/14/20 17:11 55 L 16 97 08/14/20 17:10 61 115/71 97 08/14/20 17:09 56 L 19 08/14/20 15:30 49 L 56 L 15 115/56 L 99 08/14/20 15:29 71 18 115/56 L 100 08/14/20 15:00 70 14 08/14/20 14:30 62 15 08/14/20 14:00 63 12 08/14/20 13:58 59 L 14 08/14/20 12:22 37.0 C 81 16 100
[2020-08-14] MEDS: MEPERIDINE HCL 25 MG/ML CARP/VIAL IV PRN (23:39)
[2020-08-15] MEDS: LACTATED RINGER'S 1,000 ML IV SCH (05:30)
[2020-08-15] MEDS: MEPERIDINE HCL 25 MG/ML CARP/VIAL IV PRN (05:34)
[2020-08-15] MEDS ORDERED: ceFAZolin 2000MG 2,000 MG/15 ML SYR IV SCH (06:00)
[2020-08-15] MEDS ORDERED: SODIUM CHLORIDE 0.9% 1000ML 1,000 ML IV SCH (06:00)
[2020-08-15 06:13] LABS: Basophils # (auto) 0.01 K/uL (0-0.2); Basophils % (auto) 0.1 %; Eosinophils # (auto) 0.21 K/uL (0-0.5); Hematocrit (blood only) 26.6 % (37-47); Hemoglobin 8.9 g/dL (12.0-16.0); Immature Granulocytes # (auto) 0.02 K/uL (0.00-0.02); Immature Granulocytes % (auto) 0.3 %; Lymphocytes # (auto) 0.97 K/uL (1.2-3.4); Lymphocytes % (auto) 13.7 %; Mean Corpuscular Hemoglobin 29.1 pg (25-34); Mean Corpuscular Hgb Conc 33.5 g/dL (32-36); Mean Corpuscular Volume 86.9 fL (80-100); Monocytes # (auto) 0.85 K/uL (0.11-0.59); Neutrophils # (auto) 5.03 K/uL (1.4-6.5); Neutrophils % (auto) 70.9 %; Platelet Count 243 K/uL (130-400); RDW Coefficient of Variation 13.9 % (11.5-14.5); RDW Standard Deviation 44.2 fL (36.4-46.3); Red Blood Count 3.06 M/uL (4.2-5.4); White Blood Count 7.09 K/uL (4.8-10.8)
--- NOTE | 2020-08-15 07:36 | History & Physical Bridge Note ---
Date of Service August 15, 2020 History & Physical Bridge Note I have examined the patient, reviewed the History & Physical and in the interval since the performance of the History & Physical I have noted the following changes of clinical significance: no changes noted
[2020-08-15] MEDS ORDERED: fentaNYL citrate 100 MCG/2 ML VIAL ONE ×4 (07:43→10:26)
[2020-08-15] MEDS ORDERED: MIDAZOLAM HCL 1 MG/ML 2ML VIAL ONE (07:43)
--- NOTE | 2020-08-15 07:46 | Anesthesiology Consultation ---
Date of Service August 15, 2020 Assessment & Plan Chart Review Chart Review: Acceptable Risk for Surgery and Patient NOT seen in Pre Admission Testing Consults Requested none ASA [id number] Proposed Anesthesia Anesthesia Type: General History Surgery Operation Date: 08/15/20 08:30 Proposed Procedures p Laparoscopic Operative, Evacuation of Blood Clots, Possible Cauterization Right Ovary - Tosha Shepherd Height/Weight Height: 5 ft 4 in Weight: 86.8 kg Allergies Allergy/AdvReac Type Severity Reaction Status Date / Time latex Allergy Mild states Verified 08/14/20 16:37 bandaides and tape burn her skin coconut Allergy Unknown HIVES Verified 08/14/20 16:37 No Known Drug Allergies Allergy Unknown . Verified 08/14/20 16:37 watermelon Allergy Unknown HIVES Verified 08/14/20 16:37 Medications Home Medications Medication Instructions Recorded Confirmed Last Taken acetaminophen [Tylenol Extra 1,000 mg PO Q6H PRN 07/25/20 08/14/20 08/02/20 Strength] famotidine [Pepcid] 40 mg PO HS 07/25/20 08/14/20 08/13/20 ibuprofen 400 mg PO Q6H PRN 07/25/20 08/14/20 08/02/20 clindamycin phosphate 1 applic TOPICAL BID 08/14/20 08/14/20 Unknown doxycycline hyclate 100 mg PO BID PRN 08/14/20 08/14/20 Unknown spironolactone 100 mg PO QPM 08/14/20 08/14/20 08/13/20 Active Medications Generic Name Dose Route Start Last Admin Trade Name Freq PRN Reason Stop Dose Admin Famotidine 40 mg 08/14/20 21:00 08/14/20 20:48 Famotidine 40 Mg Tablet PO 09/13/20 20:59 40 mg HS LENORE Administration Lactated Ringer's 1,000 mls @ 125 mls/hr 08/14/20 18:15 08/15/20 05:30 Lr IV 09/13/20 18:14 125 mls/hr .Q8H LENORE Administration Acetaminophen 1,000 mg in 100 mls @ 400 mls/hr 08/14/20 18:12 08/14/20 19:05 Ofirmev IV 08/17/20 18:11 400 mls/hr Q8H PRN Administration Notification Magnesium Hydroxide 30 ml 08/14/20 18:12 08/14/20 23:35 Magnesium Hydroxide Susp 30 Ml Udc PO 09/13/20 18:11 30 ml Q6H PRN Administration Constipation Meperidine HCl 25 mg 08/14/20 22:51 08/15/20 05:34 Meperidine Hcl 25 Mg/Ml Carp/Vial IV 08/28/20 22:50 25 mg Q4 PRN Administration Pain Morphine Sulfate 3 mg 08/14/20 18:12 08/14/20 20:48 Morphine Sulfate 4 Mg/Ml 1 Ml Carp\\Vial IV 08/28/20 18:11 3 mg Q3H PRN Administration Pain Simethicone 80 mg 08/14/20 23:18 08/14/20 23:35 Simethicone 80 Mg Chew PO 09/13/20 23:17 80 mg Q6H PRN Administration Dyspepsia Spironolactone 100 mg 08/14/20 21:00 08/14/20 20:48 Spironolactone 100 Mg Tab PO 09/13/20 20:59 100 mg QPM LENORE Administration Past Medical History Medical History Abdominal cramping Dysfunctional uterine bleeding Dysmenorrhea GERD (gastroesophageal reflux disease) Hidradenitis suppurativa History of bronchitis Was getting frequently so given albuterol PRN, using albuterol daily during spring/fall. 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 Per cardio 06/19/20 "she underwent EP study at [facility] several years ago without sustained or inducible arrhythmias. It was determined that the Accessory pathway was possibly very close to the [place] electrical system and ablation was not recommended. It was also felt her arr hythmia is likely low risk for sudden cardiac or sustained SVT. In February 2020, due to complaints of worsening palpitations, patient underwent ZIO monitor which demonstrated normal sinus rhythm without significant arrhythmias. Symptoms correlated to normal sinus rhythm or sinus tachycardia." Exercise / Class Metabolic Activity II 4-5 Yardwork/Stairs/Walk up hill Past Family History Family History Grandfather (Maternal) Esophageal cancer Other No family history of adverse response to anesthesia Past Surgical History Surgical History History of adenoidectomy History of electrophysiologic study History of esophagogastroduodenoscopy (EGD) History of excision of lesion breast History of hernia repair x3 History of surgery removal of HS growth from axilla Past Anesthesia History No Hx of Anesthesia Complications and No Family Hx of Anesthesia Complications History of PONV No Hx of PONV and No Hx of Motion Sickness Social History Smoking Status: Current every day smoker tobacco type: cigarettes Smoking cigarettes per day: 1/2 ppd Do You Dip or Chew Tobacco: No Hx Alcohol Use: Yes alcohol intake frequency: a few times a month Hx Substance Use: No substance use type: does not use Physical Exam Vital Signs Last Vital Signs Temp 36.9 C 08/15/20 05:00 Pulse 75 08/15/20 05:00 Resp 16 08/15/20 05:00 BP 114/73 08/15/20 05:00 Pulse Ox 97 08/15/20 05:00 Testing Laboratory Results 08/15/20 05:54 08/14/20 12:50 PT 11.2 Seconds (9.0-12.0) 08/14/20 12:50 INR 1.1 (0.9-1.1) 08/14/20 12:50 APTT 29.7 Seconds (21.0-31.0) 08/14/20 12:50 Urine Color Yellow 08/14/20 15:37 Urine Appearance Clear (Clear) 08/14/20 15:37 Urine pH 5.5 (4.5-7.5) 08/14/20 15:37 Ur Specific [place] > 1.045 (1.000-1.030) H 08/14/20 15:37 Urine Protein Negative (Negative) 08/14/20 15:37 Urine Glucose (UA) Negative (Negative) 08/14/20 15:37 Urine Ketones 2+ (Negative) H 08/14/20 15:37 Urine Nitrite Negative (Negative) 08/14/20 15:37 Ur Leukocyte Esterase Negative (Negative) 08/14/20 15:37 Urine WBC (Auto) 1-5 /hpf (0-5) 08/14/20 15:37 Urine RBC (Auto) >30 /hpf (0-4) H 08/14/20 15:37 U Hyaline Cast (Auto) 1-5 /lpf (0-5) 08/14/20 15:37 U Epithel Cells (Auto) >30 /lpf (0-5) H 08/14/20 15:37 Urine Bacteria (Auto) Negative (Negative) 08/14/20 15:37 Blood Type O Positive 08/14/20 14:32 Antibody Screen NEGATIVE 08/14/20 14:32 08/14/20 15:37 POC Ur Test NEG
--- NOTE | 2020-08-15 07:46 | Gynecologic Progress Note ---
Date of Service August 15, 2020 Assessment & Plan (1) S/P laparoscopic surgery: (2) Abdominal pain: Patient is a 30-year-old G0 female with abdominal pain, S/P Laparoscopy, right ovarian cystectomy on 08/09, VSS Afebrile Moderate hemoperitoneum H&H decreasing overnight. On admission H/H: 10.8/31.5. Throughout the night serial H/H was stable: 9.3/27.7 and 9.5/28.3. This morning H/H: 8.9/26.6 Plan to proceed to the OR for diagnostic laparoscopy and possible right salpingo-oophorectomy. Informed consent obtained. All questions were answered (3) Hemoperitoneum: (4) Vaginal bleeding: (5) Hematoma of abdominal wall: Admission and Anticipated Discharge Date Admission Date: August 14, 2020 Subjective Patient seen and evaluated this morning. Continued pain over the suprapubic region. Pain over LLQ (no increase in size of hematoma). Patient was able to urinate at 530 am without difficulty. Denies dizziness and lightheadedness. Minimal vaginal spotting. Patient is NPO and receiving IV fluids. Denies N/V, fevers, chills, SOB or CP. Patient is passing flatus. Review of Systems Review of Systems: All systems reviewed & are unremarkable except as noted in HPI & below Physical Exam Respiratory: normal respiratory effort, lungs clear to auscultation Cardiovascular: RRR, no murmur, no edema Gastrointestinal (Abdomen): Inspection/Auscultation: normal bowel sounds and + abdominal wall ecchymosis Percussion/Palpation: + abdomen tender and abdomen soft LLQ hematoma (marked with a pen) stable. No increase in size. Results & Data ([facility]) Vital Signs (Past 12 Hours) Vital Signs Temp Pulse Resp BP Pulse Ox 08/15/20 05:00 36.9 C 75 16 114/73 97 08/14/20 23:20 36.6 C 51 L 16 119/77 97 08/14/20 22:48 52 L 103/66 97 (1) Abdominal pain Abdominal location: generalized Qualified Code(s): R10.84 - Generalized a bdominal pain
[2020-08-15] MEDS ORDERED: BUPIVACAINE 0.5 % 5 MG/1 ML MPF 30ML VIAL ONE (08:46)
[2020-08-15] MEDS ORDERED: PROMETHAZINE HCL 12.5 MG in SODIUM CHLORIDE 0.9% 50 ML IV PRN (08:57)
[2020-08-15] MEDS ORDERED: ATROPINE SULFATE 0.1 MG/ML 10ML SYR IV PRN (08:57)
[2020-08-15] MEDS ORDERED: FLUMAZENIL 0.1 MG/1 ML 10 ML VIAL IV PRN (08:57)
[2020-08-15] MEDS ORDERED: NALOXONE HCL 0.4 MG/1 ML VIAL/CARP IV PRN (08:57)
[2020-08-15] MEDS ORDERED: ePHEDrine sulfate 50 MG/ML AMP IV PRN (08:57)
[2020-08-15] MEDS ORDERED: ONDANSETRON INJ 2 MG/ML 2 ML VIAL IV PRN ×2 (08:57→10:34)
[2020-08-15] MEDS ORDERED: LARYING-O-JET KIT (LTA) ONE (09:34)
[2020-08-15] MEDS ORDERED: NEOSTIGMINE METHYLSULFATE 5 MG/5 ML SYR ONE (09:34)
[2020-08-15] MEDS ORDERED: ONDANSETRON INJ 2 MG/ML 2 ML VIAL ONE ×2 (09:34→13:45)
[2020-08-15] MEDS ORDERED: ROCURONIUM BROMIDE 10 MG/ML 5 ML VIAL IV ONE (09:34)
[2020-08-15] MEDS ORDERED: GLYCOPYRROLATE 0.2 MG/ML VIAL ONE (09:34)
[2020-08-15] MEDS ORDERED: oxyCODONE/ACETAMINOPHEN 5mg/325mg TAB PO PRN ×2 (10:34→21:00)
[2020-08-15] MEDS ORDERED: KETOROLAC 30 MG/ML VIAL IV PRN (10:34)
[2020-08-15] MEDS ORDERED: METOCLOPRAMIDE HCL INJ 5 MG/ML 2 ML VIAL IV PRN (10:34)
--- NOTE | 2020-08-15 10:35 | Post Operative Brief Note ---
Immediate Post Op Note v1 Date of Surgery August 15, 2020 Pre & Post Diagnosis Operation Date: 08/15/20 08:30 Pre-Op Diagnosis: Abdominal Pain Status Post Laparoscopic Surgery Post-Op Diagnosis: Abdominal Pain Status Post Laparoscopic Surgery I identified the patient and participated in the time-out.: Yes Procedure Operation Date: 08/15/20 08:30 Actual Procedures p Diagnostic Laparoscopy, Removal of Clots (Not Applicable) - Tosha Shepherd Surgeon Tosha Shepherd Construction Technology Instructor Ayanna Mayo PA-C Estimated Blood Loss 5 Findings Consistent with Post-Op Diagnosis Drains Jesus Catheter (16 english 10ml balloon; inserted without difficulty by Ayanna Mayo PA-C. Urine output monitored throughout entire case by anesthesia staff)
[2020-08-15] MEDS: fentaNYL citrate 100 MCG/2 ML VIAL IV PRN ×4 (10:40→10:55)
--- NOTE | 2020-08-15 10:51 | Discharge Summary ---
Date of Service August 15, 2020 Admission HPI Per Admitting Provider Patient is 30 yo G0 female who is s/p Laparoscopy, removal of ovarian cyst and endometrioma on 08/09/20 and was discharged on same day. She states she has never felt better, has been having lower abdominal pain and l eft abdominal wall/flank hematoma. She noticed hematoma next day after surgery and it was small. It got bigger yesterday when she sent a picture to her surgeon Dr. Shepherd who recommended to mary it and observe. Patient states her pain got worse today and hematoma got larger and she called the office and recommended by Dr. Shepherd to come to the ER. Her pain has been more in the lower abdomen/pelvis, more with movement and coughing. Can be up to 8-9/10, Percocet and Motrin that she has been taking at home were not helping. She also had fever 2 days ago which was 100.2 and her urination was difficult and painful. She was sent in prescription for antibiotics but has not had a chance to nut picker. She states she is able to eat and drink slowly but does not have any appetite since surgery, she denies any vomiting. She has been passing gas and moved her bowels yesterday and she has been constipated. She had light vaginal bleeding for 2 days after surgery and stopped started again as light bleeding. She denies dizziness, lightheadedness upon ambulation, denies chest pain/ shortness of breath, palpitation. She has a history of W VF syndrome and sees cardiology for that. She was cleared for surgery by crew foreman. She has gastritis and polyps in her stomach for which she had endoscopy recently and was put on Pepcid. She is a daily smoker, smokes half pack a day. She has a history of hidradenitis suppurativa, clindamycin and spironolactone as needed. Admission Exam (Per Admitting) Constitutional + in distress and + diaphoretic Gastrointestinal (Abdomen) Inspection/Auscultation: normal bowel sounds and + abdominal surgical incision (+ ecchymosis surround left port incision) Percussion/Palpation: + abdomen tender Musculoskeletal Head/Neck/Chest: head normal to inspection Extremities: extremities normal to inspection Discharge Data Consultations 08/14/20 15:40 ED Decision to Admit Stat Procedures Performed Operation Date: 08/15/20 08:30 Actual Procedures p Diagnostic Laparoscopy, Removal of Clots (Not Applicable) - [facility] Course (1) S/P laparoscopic surgery: (2) Abdominal pain: Patient is a 30-year-old G0 female with abdominal pain, S/P Laparoscopy, right ovarian cystectomy on 08/09, VSS Afebrile Moderate hemoperitoneum H&H decreasing overnight. On admission H/H: 10.8/31.5. Throughout the night serial H/H was stable: 9.3/27.7 and 9.5/28.3. This morning H/H: 8.9/26.6 Plan to proceed to the OR for diagnostic laparoscopy and possible right salpingo-oophorectomy. Informed consent obtained. All questions were answered (3) Hemoperitoneum: (4) Vaginal bleeding: (5) Hematoma of abdominal wall:
--- NOTE | 2020-08-15 10:57 | Operative Report ---
Post Operative Report Pre & Post Diagnosis Operation Date: 08/15/20 08:30 Pre-Op Diagnosis: Abdominal Pain Status Post Laparoscopic Surgery Post-Op Diagnosis: Abdominal Pain Status Post Laparoscopic Surgery I identified the patient and participated in the time-out.: Yes Procedure Operation Date: 08/15/20 08:30 Actual Procedures p Diagnostic Laparoscopy, Removal of Clots (Not Applicable) - Tosha Shepherd Surgeon Tosha Shepherd Hat Copyist Ayanna Mayo PA-C Estimated Blood Loss 5 Findings See Below 1. 9 cm anteverted uterus 2. Normal appearing left fallopian tube and ovary 3. Right ovary with floseal still present 4. Normal right fallopian tube 5. Left sigmoid was adhered to the left pelvic sidewall 6. Approximately 250 ml of clot between the uterus and the right posterior cul-de-sac 7. Anterior cul-de-sac was free of lesions or clots 8. Normal appearing liver edge 9. LLQ incision was probed and irrigated and no active bleeding visualized Fluids See Anesthesia Report Specimens None Drains Blanc catheter removed at the end of the procedure: 300 ml Anesthesia Type General Complications none Indications 30 yo s/p diagnostic laparoscopy and right ovarian cystectomy on 08/09/2020 now with severe abdominal pain and declining H/H. CT scan consistent with a hemoperitoneum. Plan to proceed to the OR for diagnostic laparoscopy. Informed consent previously obtained prior to surgery. Description of Procedure Under GA in the dorsal lithotomy position, the patient was prepped and draped in the usual sterile fashion. Beginning at the vagina, a blanc catheter was inserted under sterile conditions and left in situ for the remainder of the case. A weighted speculum was then placed in the vagina and with the help of a right angle retractor the cervix was visualized and grasped anteriorly with a single tooth tenaculum. The uterus was sounded to 9 cm with uterine sound. The cervical os was dilated. A HUMI manipulator was inserted. The weighted speculum was then removed. Attention was then turned to the abdomen. 0.5% marcaine solution was used for infiltration of all port sites. Beginning in the subumbilical area, the skin was first infiltrated with ~ 2 cc of the marcaine solution, then a 5 mm incision was made through the skin with a #11 blade. Direct entry with a 5 mm trocar, sleeve, and laparoscope was made into the peritoneal cavity. The opening pressure was < 8 mmHg. The peritoneal cavity was insufflated with CO2 gas to a maximum pressure of 20 mmHg. Examination of the peritoneal cavity revealed no signs of injury from entry and the above noted anatomical structures. The previous RLQ incision was then entered with a 5 mm trocar and sleeve under direct visualization. The suction rapid transit operator was then used to suction the clots between the uterus and the right posterior cul-de-sac. The right ovary was noted to be hemostatic. The left sigmoid colon which was adhered to the left pelvic side was then bluntly dissected off the side wall with no injury to the bowel. The fluid collection of blood in both pelvic sidewalls were then suctioned. The patient was then slowly placed in Trendelenburg as we suctioned the posterior cul-de-sac. The uterus was upheld from below and revealed a normal uterus and normal tubes and ovaries. The entire pelvis was then copiously irrigated and suctioned. Reverse Trendelenburg was then performed as we continued to suctioned fluid and clots. Hemostasis was noted. No active bleeding visualized throughout the entire case. The LLQ incision (where Patient has a superficial large hematoma) was probed, irrigated, and suctioned with no active bleeding visualized. All ports were removed under direct visualization and hemostasis noted. All the incision sites were then closed with 4-0 monocryl sutures in a subcuticular fashion and dermabond. Attention was returned to the vagina. All vaginal instruments and blanc catheter were removed without difficulty. At the end of the procedure, all sponges, instruments, and sharps were counted and correct. Estimated blood loss was 5 ml. The patient was taken to recovery in stable condition. My Hat Copyist was necessary throughout the procedure for uterine manipulation, retraction, handling of the laparoscope and laparoscopic instruments to ensure adequate visualization, gentle tissue manipulation, and hemostasis. I attest to the content of the Intraoperative Record and any orders documented therein. Any exceptions are noted below.
[2020-08-15] MEDS: HYDROmorphone INJ 1 MG/ML SYRINGE IV PRN ×2 (11:00→11:05)
--- NOTE | 2020-08-15 11:23 | Anesthesiology Progress Note ---
Date of Service August 15, 2020 Anesthesia Post Procedure Vital Signs Vital Signs: Temp Pulse Pulse Pulse Resp BP BP 08/15/20 11:15 37 C 54 L 20 109/61 08/15/20 11:05 55 L 18 117/64 08/15/20 10:55 69 20 122/64 08/15/20 10:45 51 L 15 112/69 08/15/20 10:35 36.8 C 69 16 125/75 08/15/20 08:30 37.3 C 71 16 130/72 08/15/20 08:04 37.1 C 71 20 08/15/20 05:00 36.9 C 75 16 08/14/20 23:20 36.6 C 51 L 16 08/14/20 22:48 52 L 08/14/20 18:50 36.5 C 55 L 19 08/14/20 18:31 60 13 108/57 L 08/14/20 18:30 60 16 08/14/20 18:07 55 L 18 132/73 08/14/20 18:02 63 12 08/14/20 18:01 56 L 21 08/14/20 18:00 50 L 17 08/14/20 17:31 65 17 08/14/20 17:30 64 18 110/72 08/14/20 17:11 55 L 16 08/14/20 17:10 61 115/71 08/14/20 17:09 56 L 19 08/14/20 15:30 49 L 56 L 15 08/14/20 15:29 71 18 115/56 L 08/14/20 15:00 70 14 08/14/20 14:30 62 15 08/14/20 14:00 63 12 08/14/20 13:58 59 L 14 08/14/20 12:22 37.0 C 81 16 BP Pulse Ox 08/15/20 11:15 95 08/15/20 11:05 95 08/15/20 10:55 96 08/15/20 10:45 100 08/15/20 10:35 100 08/15/20 08:30 98 08/15/20 08:04 115/79 97 08/15/20 05:00 114/73 97 08/14/20 23:20 119/77 97 08/14/20 22:48 103/66 97 12/23/20 18:50 123/69 98 12/23/20 18:31 08/14/20 18:30 98 08/14/20 18:07 100 08/14/20 18:02 98 08/14/20 18:01 98 08/14/20 18:00 97 08/14/20 17:31 98 08/14/20 17:30 98 08/14/20 17:11 97 08/14/20 17:10 97 08/14/20 17:09 08/14/20 15:30 115/56 L 99 08/14/20 15:29 100 08/14/20 15:00 08/14/20 14:30 08/14/20 14:00 08/14/20 13:58 08/14/20 12:22 100 Pain Intensity Left Lower Abdomen: Pain Intensity: 4 Transfer of Care Handoff Completed per policy Notes Mental Status: alert / awake / arousable Patient Amnestic to Procedure: Yes Nausea / Vomiting: adequately controlled Pain: adequately controlled Airway Patency, RR, SpO2: stable & adequate BP & HR: stable & adequate Hydration State: stable & adequate Anesthetic Complications: no major complications apparent
[2020-08-15] MEDS ORDERED: oxyCODONE/ACETAMINOPHEN 5mg/325mg TAB PO SCH (21:00)
[2020-08-15] MEDS ORDERED: AMOXICILLIN/CLAVULANATE 875 MG TAB PO SCH ×2 (21:00)
== END 2020-08-15 14:20 | disposition home or self-care (01) ==
LOC: ED 12:20 → 4S2 12:20

== ENCOUNTER 2021-07-31 10:39 | Observation (INO) ==
--- NOTE | 2021-07-31 11:26 | CT Scan Report ---
CT head/brain wo con CLINICAL HISTORY: headache Technique: Contiguous axial CT images of the head were acquired from the base of the skull to the marino jaden without intravenous contrast administration. Images were viewed in brain, subdural and [facility]. Automated dose lowering techniques and/or adjustment according to patient size were utilized for this exam. Comparison: Comparison is made to CT head 11/25/2010 Findings: The ventricles, basal cisterns, and cerebral sulci are normal. There is no acute intracranial hemorrh age or evidence of acute territorial infarction. Neither mass effect, shift of the midline structures , nor abnormal extra-axial fluid collections are shown. Imaged portions of the paranasal sinuses and mastoid air cells are clear. The orbits appear normal. There are no acute fractures of the calvaria or scalp swelling. Impression: No acute intracranial hemorrhage, no evidence of acute territorial infarction or other acute intracra nial disease process. ACT 112: Negative or not required by law. Electronically signed by: Andi Sexton M.D. 07/31/2021 11:24 AM
--- NOTE | 2021-07-31 12:01 | Emergency Department Note ---
Impression & Plan Brain TIA, Headache, Arm weakness ED Provider Note NAME: IGLESIA TSAI AGE: 31 SEX: F : 1990 ARRIVES VIA: Walk-In INFORMANT: Patient ED PROVIDER(S): Sameer Ferreira DO CHIEF COMPLAINT: Left-sided headache and left hand arm numbness and weakness HPI: Patient is a 31-year-old female with past medical history of WPW status post ablation performed this past Wednesday currently on Eliquis. They did use her left arm and groin as well per intervention and blood pressure monitoring. This occurred at [facility] in [facility]. She started having a headache Wednesday after being discharged. Wednesday she noticed weakness and numbness of her left hand. Initially started in the left fifth fourth and third digits and traveled to the whole hand. She had trouble moving it and could not lift anything or grab anything. This lasted for about 1/2-hour. She denies any chest pain shortness of breath nausea vomiting or diarrhea. No dysuria urgency or frequency. She was referred in by her physicians for further work-up. ROS: See above HPI for pertinent positives & negatives. A total of 10 systems reviewed and were otherwise negative. PAST MEDICAL HISTORY:See Below PAST SURGICAL HISTORY:See Below FAMILY HISTORY:See Below SOCIAL HISTORY:See Below HOME MEDICATIONS:See Below ALLERGIES:See Below VITALS:See Below PHYSICAL EXAMINATION: GENERAL: Sitting up in bed, alert, well appearing, well nourished, no distress, non-toxic EYE EXAM: normal conjunctiva. PERRL and EOM's intact. OROPHARYNX: no exudate, no erythema, lips, buccal mucosa, and tongue normal and mucous membranes are moist NECK: supple, no nuchal rigidity, no adenopathy, non-tender LUNGS: Clear to auscultation. Normal chest wall mechanics HEART: no murmurs, S1 normal and S2 normal ABDOMEN: abdomen soft, non-tender, normo-active bowel sounds, no masses, no rebound or guarding. BACK: Back is symmetrical on inspection and there is no deformity, no midline tenderness, no CVA tenderness. SKIN: no rashes and no bruising UPPER EXTREMITIES: upper extremities are grossly normal. LOWER EXTREMITIES: No pitting edema. NEURO EXAM: Normal sensorium, cranial nerves II-XII intact, normal speech, no weakness of arms, no weakness of legs. No drift. Finger to nose intact. Gross sensation intact. Ambulates without difficulty MEDICAL DECISION MAKING: Patient is a 31-year-old female status post ablation for WPW at [facility] last week. Wednesday she had left arm numbness and weakness. She was encouraged to come in here today. IV was established and blood work was obtained. Labs showed no significant leukocytosis or anemia. BMP was unremarkable. LFTs bilirubin and lipase was normal. Troponin was detectable at 0.021. Covid was negative. CTs as well as CT angios of the head and neck were negative. CT angios of the head and neck as well as Noncon of the head was negative. Chest x-ray was unremarkable. With the recent intervention, left arm weakness and nu mbness and headache concern for stroke. Discussed with neurology and they recommended admission. Discussed with hospitalist for further evaluation Triage Nursing notes reviewed. Limited review of prior medical records performed Vital Signs: reviewed and remarkable for no significant abnormalities Differential diagnosis: Differential Diagnosis includes but is not limited to ischemic Stroke, hemorrhagic stroke, bells palsy, mass, neoplasm, migraine headache, seizure, subarachnoid hemorrhage, TIA, and transient global amnesia. ER treatment provided: See below Diagnostics interpreted by me: ECG: Sinus rhythm rate 77 Normal axis No PVCs QTC 396 Cardiac Monitoring: An order was placed for continuous cardiac monitoring. The monitor shows a rate of 70 with sinus rhythm. Laboratory studies: As stated above and show below. Imaging studies: CT head and neck are negative Consultation(s): Discussed with neurology they recommended admission Discussed the hospitalist for further evaluation Procedures: none Critical Care: None Past Med/Surg History Medical History (Updated 07/31/21 @ 17:56 by Sameer Ferreira DO) Abdominal cramping Dysfunctional uterine bleeding Dysmenorrhea GERD (gastroesophageal reflux disease) Hidradenitis suppurativa History of bronchitis Was getting frequently so given albuterol PRN, using albuterol daily during spring/fall. History of kidney stones Polyp, stomach Stomach erosion WPW (Tjzla-Wdbjkdzrc-Unlsb syndrome) follows with Dr. Melendez. Per cardio 06/19/20 "she underwent EP study at [facility] several years ago without sustained or inducible arrhythmias. It was determined that the Accessory pathway was possibly very close to the sycuan electrical system and ablation was not recommended. It was also felt her arrhythmia is likely low risk for sudden cardiac or sustained SVT. In February 2020, due to complaints of worsening palpitations, patient underwent ZIO monitor which demonstrated normal sinus rhythm without significant arrhythmias. Symptoms correlated to normal sinus rhythm or sinus tachycardia." Surgical History (Updated 07/31/21 @ 13:49 by Hanane Strickland PA-C) History of adenoidectomy History of electrophysiologic study History of esophagogastroduodenoscopy (EGD) History of excision of lesion breast History of hernia repair x3 History of surgery removal of HS growth from axilla Family History Grandfather (Maternal) Esophageal cancer Other No family history of adverse response to anesthesia Social History Smoking Status: Current every day smoker Cigarettes Per Day: 1/2 ppd; Second Hand Exposure: Yes; Hx Alcohol Use: Yes Hx Substance Use: No Preferred Language: Guatemalan Communication Ability: Effective 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 Verified 07/31/21 13:34 Home Meds Home Medications Medication Instructions Recorded Confirmed famotidine 40 mg tablet (Pepcid) 40 mg PO HS 07/25/20 07/31/21 clindamycin phosphate 1 % lotion 1 applic TOPICAL BID 08/14/20 07/31/21 doxycycline hyclate 100 mg capsule 100 mg PO BID PRN 08/14/20 07/31/21 spironolactone 100 mg tablet 100 mg PO QPM 08/14/20 07/31/21 rivaroxaban 20 mg tablet (Xarelto) 20 mg PO PM 07/31/21 07/31/21 Previous Rx's Medication Instructions Recorded acetaminophen 500 mg tablet 1,000 mg PO Q6H PRN #60 tab 08/15/20 (Tylenol Extra Strength) ibuprofen 600 mg tablet 600 mg PO Q6H #60 tab 08/15/20 Results & Data (ED) Vital Signs Vital Signs - 24 hr 07/31/21 10:42 07/31/21 12:45 07/31/21 12:59 Temperature 36.8 C Temperature Source Temporal Artery Scan Pulse Rate 106 H 81 79 Pulse Rate [Apical] 79 Pulse Rate from SpO2 Sensor 67 Pulse Rhythm [Apical] Regular Pulse Strength [Apical] Normal Respiratory Rate 18 18 19 Respiratory Effort / Characteristics Non-Labored Spontaneous Respiratory Depth Normal Blood Pressure 118/70 Blood Pressure [Right Arm] 102/61 Blood Pressure Mean 86 Blood Pressure Mean [Right Arm] 74 Blood Pressure Position [Right Arm] Lying Pulse Oximetry 99 97 99 Oxygen Delivery Method Room Air Sepsis Recent Fever Within 48 Hours No Sepsis New/Unexplained Change in Mental Status No Sepsis Action Taken by Nursing No Action Required 07/31/21 13:00 07/31/21 13:10 07/31/21 13:20 Temperature Temperature Source Pulse Rate 83 78 72 Pulse Rate [Apical] Pulse Rate from SpO2 Sensor 61 73 73 Pulse Rhythm [Apical] Pulse Strength [Apical] Respiratory Rate 17 14 19 Respiratory Effort / Characteristics Respiratory Depth Blood Pressure Blood Pressure [Right Arm] Blood Pressure Mean Blood Pressure Mean [Right Arm] Blood Pressure Position [Right Arm] Pulse Oximetry 99 100 99 Oxygen Delivery Method Sepsis Recent Fever Within 48 Hours Sepsis New/Unexplained Change in Mental Status Sepsis Action Taken by Nursing 07/31/21 14:10 07/31/21 14:20 07/31/21 14:30 Temperature Temperature Source Pulse Rate 71 71 63 Pulse Rate [Apical] Pulse Rate from SpO2 Sensor 72 68 63 Pulse Rhythm [Apical] Pulse Strength [Apical] Respiratory Rate 18 13 16 Respiratory Effort / Characteristics Respiratory Depth Blood Pressure 113/61 Blood Pressure [Right Arm] Blood Pressure Mean 78 Blood Pressure Mean [Right Arm] Blood Pressure Position [Right Arm] Pulse Oximetry 100 100 99 Oxygen Delivery Method Sepsis Recent Fever Within 48 Hours Sepsis New/Unexplained Change in Mental Status Sepsis Action Taken by Nursing 07/31/21 14:40 07/31/21 14:50 07/31/21 15:00 Temperature Temperature Source Pulse Rate 76 71 60 Pulse Rate [Apical] Pulse Rate from SpO2 Sensor 77 64 58 L Pulse Rhythm [Apical] Pulse Strength [Apical] Respiratory Rate 15 16 17 Respiratory Effort / Characteristics Respiratory Depth Blood Pressure 112/56 L Blood Pressure [Right Arm] Blood Pressure Mean 74 Blood Pressure Mean [Right Arm] Blood Pressure Position [Right Arm] Pulse Oximetry 100 97 98 Oxygen Delivery Method Sepsis Recent Fever Within 48 Hours Sepsis New/Unexplained Change in Mental Status Sepsis Action Taken by Nursing 07/31/21 15:10 07/31/21 15:20 07/31/21 15:30 Temperature Temperature Source Pulse Rate 61 64 60 Pulse Rate [Apical] Pulse Rate from SpO2 Sensor 61 63 55 L Pulse Rhythm [Apical] Pulse Strength [Apical] Respiratory Rate 19 21 17 Respiratory Effort / Characteristics Respiratory Depth Blood Pressure Blood Pressure [Right Arm] Blood Pressure Mean Blood Pressure Mean [Right Arm] Blood Pressure Position [Right Arm] Pulse Oximetry 99 98 99 Oxygen Delivery Method Sepsis Recent Fever Within 48 Hours Sepsis New/Unexplained Change in Mental Status Sepsis Action Taken by Nursing 07/31/21 15:40 07/31/21 15:50 07/31/21 16:00 Temperature Temperature Source Pulse Rate 58 L 59 L 57 L Pulse Rate [Apical] Pulse Rate from SpO2 Sensor 56 L 62 58 L Pulse Rhythm [Apical] Pulse Strength [Apical] Respiratory Rate 16 15 17 Respiratory Effort / Characteristics Respiratory Depth Blood Pressure 110/58 L Blood Pressure [Right Arm] Blood Pressure Mean 75 Blood Pressure Mean [Right Arm] Blood Pressure Position [Right Arm] Pulse Oximetry 97 99 100 Oxygen Delivery Method Sepsis Recent Fever Within 48 Hours Sepsis New/Unexplained Change in Mental Status Sepsis Action Taken by Nursing Laboratory Data Result diagrams: 07/31/21 12:25 07/31/21 12:25 Lab Results 07/31/21 07/31/21 07/31/21 Range/Units 12:20 12:25 12:25 WBC 11.01 H (4.8-10.8) K/uL RBC 4.79 (4.2-5.4) M/uL Hgb 14.2 (12.0-16.0) g/dL Hct 42.3 (37-47) % MCV 88.3 (80-100) fL MCH 29.6 (25-34) pg MCHC 33.6 (32-36) g/dL RDW Std Deviation 43.3 (36.4-46.3) fL RDW Coeff of Dana 13.3 (11.5-14.5) % Plt Count 270 (130-400) K/uL MPV 9.3 (7.4-10.4) fL Immature Gran % (Auto) 0.4 % Neut % (Auto) 70.6 % Lymph % (Auto) 18.8 % [place] % (Auto) 7.3 % Eos % (Auto) 2.7 % Baso % (Auto) 0.2 % Neut # (Auto) 7.78 H (1.4-6.5) K/uL Lymph # (Auto) 2.07 (1.2-3.4) K/uL [place] # (Auto) 0.80 H (0.11-0.59) K/uL Eos # (Auto) 0.30 (0-0.5) K/uL Baso # (Auto) 0.02 (0-0.2) K/uL Immature Gran # (Auto) 0.04 H (0.00-0.02) K/uL ESR (0-20) mm/hr Sodium 135 L (136-145) mmol/L Potassium 4.1 (3.5-5.1) mmol/L Chloride 107 (98-107) mmol/L Carbon Dioxide 23 (21-32) mmol/L Anion Gap 5.0 (3-11) BUN 17 (7-18) mg/dl Creatinine 0.68 (0.6-1.2) mg/dl Est Cr Clr Drug Dosing 128.3 ml/min Est GFR ( Amer) 135.1 ml/min Est GFR (Non-Af Amer) 116.6 ml/min BUN/Creatinine Ratio 24.7 H (10-20) Glucose 86 (70-99) mg/dl Calcium 9.5 (8.5-10.1) mg/dl Total Bilirubin 0.5 (0.2-1) mg/dl AST 12 L (15-37) U/L ALT 19 (12-78) Alkaline Phosphatase 64 (45-117) U/L Troponin I 0.021 (0-0.045) ng/ml Total Protein 7.7 (6.4-8.2) gm/dl Albumin 4.0 (3.4-5.0) gm/dl Globulin 3.7 (2.5-4.0) gm/dl Albumin/Globulin Ratio 1.1 (0.9-2) Lipase 92 (73-393) U/L SARS-CoV-2, RNA, NAAT NEGATIVE (NEGATIVE) 07/31/21 Range/Units 12:25 WBC (4.8-10.8) K/uL RBC (4.2-5.4) M/uL Hgb (12.0-16.0) g/dL Hct (37-47) % MCV (80-100) fL MCH (25-34) pg MCHC (32-36) g/dL RDW Std Deviation (36.4-46.3) fL RDW Coeff of Dana (11.5-14.5) % Plt Count (130-400) K/uL MPV (7.4-10.4) fL Immature Gran % (Auto) % Neut % (Auto) % Lymph % (Auto) % [place] % (Auto) % Eos % (Auto) % Baso % (Auto) % Neut # (Auto) (1.4-6.5) K/uL Lymph # (Auto) (1.2-3.4) K/uL [place] # (Auto) (0.11-0.59) K/uL Eos # (Auto) (0-0.5) K/uL Baso # (Auto) (0-0.2) K/uL Immature Gran # (Auto) (0.00-0.02) K/uL ESR 13 (0-20) mm/hr Sodium (136-145) mmol/L Potassium (3.5-5.1) mmol/L Chloride (98-107) mmol/L Carbon Dioxide (21-32) mmol/L Anion Gap (3-11) BUN (7-18) mg/dl Creatinine (0.6-1.2) mg/dl Est Cr Clr Drug Dosing ml/min Est GFR ( Amer) ml/min Est GFR (Non-Af Amer) ml/min BUN/Creatinine Ratio (10-20) Glucose (70-99) mg/dl Calcium (8.5-10.1) mg/dl Total Bilirubin (0.2-1) mg/dl AST (15-37) U/L ALT (12-78) Alkaline Phosphatase (45-117) U/L Troponin I (0-0.045) ng/ml Total Protein (6.4-8.2) gm/dl Albumin (3.4-5.0) gm/dl Globulin (2.5-4.0) gm/dl Albumin/Globulin Ratio (0.9-2) Lipase (73-393) U/L SARS-CoV-2, RNA, NAAT (NEGATIVE) Administered Medications Bisacodyl (Bisacodyl 5 Mg Tabec) 5 mg PO DAILY LENORE Stop: 08/30/21 14:14 Last Admin: 07/31/21 14:41 Dose: 5 mg Documented by: [id number] Discontinued Medications Diphenhydramine HCl (Diphenhydramine 50 Mg/Ml Vial) 25 mg IV NOW STA Stop: 07/31/21 12:51 Last Admin: 07/31/21 12:56 Dose: 25 mg Documented by: [id number] Hydromorphone HCl (Hydromorphone Inj 0.5 Mg/0.5 Ml Syr) 0.5 mg IV NOW STA Stop: 07/31/21 14:08 Last Admin: 07/31/21 14:40 Dose: 0.5 mg Documented by: [id number] Ioversol (Optiray 320 125ml) 120 ml IV ONCE ONE Stop: 07/31/21 13:44 Last Admin: 07/31/21 13:44 Dose: 120 ml Documented by: [id number] Ketorolac Tromethamine (Ketorolac Tromethamine 15 Mg/Ml Vial) 15 mg IV NOW ONE Stop: 07/31/21 12:51 Last Admin: 07/31/21 12:55 Dose: 15 mg Documented by: [id number] Imaging Data Radiologist's Impression: Head CT 07/31/21 11:03 CT head/brain wo con CLINICAL HISTORY: headache Technique: Contiguous axial CT images of the head were acquired from the base of the skull to the vertex without intravenous contrast administration. Images were viewed in brain, subdural and bone windows. Automated dose lowering techniques and/or adjustment according to patient size were utilized for this exam. Comparison: Comparison is made to CT head 11/25/2010 Findings: The ventricles, basal cisterns, and cerebral sulci are normal. There is no acute intracranial hemorrhage or evidence of acute territorial infarction. Neither mass effect, shift of the midline structures, nor abnormal extra-axial fluid collections are shown. Imaged portions of the paranasal sinuses and mastoid air cells are clear. The orbits appear normal. There are no acute fractures of the calvaria or scalp swelling. Impression: No acute intracranial hemorrhage, no evidence of acute territorial infarction or other acute intracranial disease process. ACT 112: Negative or not required by law. Electronically signed by: Andi Sexton M.D. 07/31/2021 11:24 AM Chest X-Ray 07/31/21 11:56 XR chest 1V portable CLINICAL HISTORY: Chest Pain TECHNIQUE: Single frontal radiograph of the chest was obtained. Comparison: Comparison is made to chest one view 08/14/2020 FINDINGS: No lines and tubes are seen. The cardiomediastinal silhouette is normal. The lungs are clear. No evidence of pleural effusion or pneumothorax. IMPRESSION: No acute chest disease. ACT 112: Negative or not required by law. Electronically signed by: Andi Sexton M.D. 07/31/2021 12:46 PM Head CTA 07/31/21 11:56 CT angio neck with con, CT angio head w con CLINICAL HISTORY: ?cva TECHNIQUE: CT angiography of the head and neck was performed following intravenous administration of iodinated contrast. Automated dose lowering techniques and/or adjustment according to patient size were utilized for this examination. Comparison: None available at the time of this dictation. FINDINGS: CTA Neck: A 3 vessel aortic arch is shown. There is no significant atherosclerotic plaque in the aortic arch or the origins of the innominate, left common carotid, and left subclavian arteries. The common carotid, external carotid, cervical segments of the internal carotid arteries, and the cervical segments of the vertebral arteries are patent. There is no hemodynamically significant diameter stenosis or dissection present. The vertebral arteries are codominant. Bullae are seen in the bilateral apices. CTA Head: The anterior and posterior cerebral circulations are patent. No hemodynamically significant stenosis, aneurysm, dissection, or arteriovenous malformation is shown. Incidental note is made of common origin of the anterior cerebral arteries, with bifurcation more distal than normal. IMPRESSION: 1. No occlusion, hemodynamically significant stenosis, aneurysm, dissection, or arteriovenous malformation in the major intracranial arteries. 2. No occlusion, hemodynamically significant stenosis, or dissection in the major cervical arteries. Assessment of stenosis of the internal carotid arteries is based on NASCET criteria. ACT 112: Negative or not required by law. Electronically signed by: Andi Sexton M.D. 07/31/2021 2:02 PM Neck CTA 07/31/21 11:56 CT angio neck with con, CT angio head w con CLINICAL HISTORY: ?cva TECHNIQUE: CT angiography of the head and neck was performed following intravenous administration of iodinated contrast. Automated dose lowering techniques and/or adjustment according to patient size were utilized for this examination. Comparison: None available at the time of this dictation. FINDINGS: CTA Neck: A 3 vessel aortic arch is shown. There is no significant atherosclerotic plaque in the aortic arch or the origins of the innominate, left common carotid, and left subclavian arteries. The common carotid, external carotid, cervical segments of the internal carotid arteries, and the cervical segments of the vertebral arteries are patent. There is no hemodynamically significant diameter stenosis or dissection present. The vertebral arteries are codominant. Bullae are seen in the bilateral apices. CTA Head: The anterior and posterior cerebral circulations are patent. No hemodynamically significant stenosis, aneurysm, dissection, or arteriovenous malformation is shown. Incidental note is made of common origin of the anterior cerebral arteries, with bifurcation more distal than normal. IMPRESSION: 1. No occlusion, hemodynamically significant stenosis, aneurysm, dissection, or arteriovenous malformation in the major intracranial arteries. 2. No occlusion, hemodynamically significant stenosis, or dissection in the major cervical arteries. Assessment of stenosis of the internal carotid arteries is based on NASCET criteria. ACT 112: Negative or not required by law. Electronically signed by: Andi Sexton M.D. 07/31/2021 2:02 PM Discharge Plan Visit Data Chief Complaint: Headache Stated Complaint: HAD CATH ABLASION TO HEART ON WED/HEADACHE ON ED Provider: Sameer Ferreira Discharge Problem: Brain TIA, Headache, Arm weakness Discharge Instructions Interventions: ED Discharge Assessment Last Done: 07/31/21 17:33 Discharge Problem: Headache Qualifiers: Headache type: unspecified Headache chronicity pattern: unspecified pattern Intractability: not intractable Qualified Code(s): R51.9 - Headache, unspecified
[2021-07-31 12:44] LABS: Basophils # (auto) 0.02 K/uL (0-0.2); Basophils % (auto) 0.2 %; Eosinophils % (auto) 2.7 %; Hematocrit (blood only) 42.3 % (37-47); Hemoglobin 14.2 g/dL (12.0-16.0); Immature Granulocytes # (auto) 0.04 K/uL (0.00-0.02); Immature Granulocytes % (auto) 0.4 %; Lymphocytes # (auto) 2.07 K/uL (1.2-3.4); Lymphocytes % (auto) 18.8 %; Mean Corpuscular Hemoglobin 29.6 pg (25-34); Mean Corpuscular Hgb Conc 33.6 g/dL (32-36); Mean Corpuscular Volume 88.3 fL (80-100); Mean Platelet Volume 9.3 fL (7.4-10.4); Monocytes % (auto) 7.3 %; Neutrophils # (auto) 7.78 K/uL (1.4-6.5); Neutrophils % (auto) 70.6 %; Platelet Count 270 K/uL (130-400); RDW Coefficient of Variation 13.3 % (11.5-14.5); RDW Standard Deviation 43.3 fL (36.4-46.3); Red Blood Count 4.79 M/uL (4.2-5.4); White Blood Count 11.01 K/uL (4.8-10.8)
--- NOTE | 2021-07-31 12:47 | XRay Report ---
XR chest 1V portable CLINICAL HISTORY: Chest Pain TECHNIQUE: Single frontal radiograph of the chest was obtained. Comparison: Comparison is made to chest one view 08/14/2020 FINDINGS: No lines and tubes are seen. The cardiomediastinal silhouette is normal. The lungs are clear. No evid ence of pleural effusion or pneumothorax. IMPRESSION: No acute chest disease. ACT 112: Negative or not required by law. Electronically signed by: Andi Sexton M.D. 07/31/2021 12:46 PM
[2021-07-31] MEDS ORDERED: KETOROLAC TROMETHAMINE 15 MG/ML VIAL IV ONE (12:50)
[2021-07-31] MEDS ORDERED: diphenhydrAMINE 50 MG/ML VIAL IV STA (12:50)
[2021-07-31 13:03] LABS: BUN Creatinine Ratio 24.7 (10-20); Calcium 9.5 mg/dl (8.5-10.1); Creatinine Clr Calc Pharmacy 128.3 ml/min; Est GFR (African American) 135.1 ml/min; Est GFR (Non-African American) 116.6 ml/min; Potassium 4.1 mmol/L (3.5-5.1)
[2021-07-31 13:09] LABS: Albumin Globulin Ratio 1.1 (0.9-2); Bilirubin,Total 0.5 mg/dl (0.2-1); Globulin 3.7 gm/dl (2.5-4.0); Total Protein 7.7 gm/dl (6.4-8.2); Troponin I 0.021 ng/ml (0-0.045)
--- NOTE | 2021-07-31 13:33 | History & Physical Report ---
Date of Service July 31, 2021 Assessment & Plan (1) History of cardiac radiofrequency ablation: (2) Hx of supraventricular tachycardia: Plan: - Hx of such, cardiac ablation on 07/25/2021 performed at [facility] in [facility] - patient was started on Xarelto at that time - will discuss with neuro, continue for now. - Admit to telemetry - EKG reviewed and is currently in NSR, rate controlled with heart rate in the 70s - Patient denies any chest pain, palpitations or flutter - Consider cardiology consult, follows with Dr. العراقي as an outpatient - Check 2D echo (3) WPW (Fleot-Vunbimjfw-Nxhvc syndrome): Plan: - hx of such intermittently thoughout life (4) Left arm weakness: Plan: - Hx of such on Wednesday x 20 minute, now resolved, involved left arm from elbow down to wrist and included the middle, ring and pinky fingers. No strength deficit at that time. She is bruised from a-line placement during the ablation over the left wrist. ? Swelling to have caused neuro deficit vs cva like symptoms? - PT/OT consults (5) Left temporal headache: Plan: - Neuro consulted - Obtain Brain MRI stat - BP stable 102/61, CT head is negative for acute bleed - on xarelto as above, continue - Allow dilaudid 0.5 mg Q6H prn for headache for now. No toradol with being on xarelto. - Bowel regimen ordered as pt has not had BM since last . (6) Tobacco abuse: Plan: -Cessation encouraged at bedside, patient has smoked 1/2 pack a day since age 11, she denied need for nicotine patch. Pt has not smoked as much in the past week due to feeling ill. DVT ppx: - teds, scds, xarelto CODE: Full code Dispo: From home, likely to remain in the hospital x 1 day for Observation. History of Present Illness Chief Complaint: Throbbing left-sided headache, left-sided arm weakness and numbness x20 minutes on Wednesday afternoon. Primary Care Provider: Cynthia Bennett, This is a 31-year-old female with PMHx of hydradenitis suppurativa, GERD, chronic smoker 1/2 pack/day since age 11, SVT and WPW, recently undergoing elective ablation at [facility] in [place] on 07/25/2021, stayed overnight in their facility and then was sent home on Wednesday morning. Patient reports on Wednesday she developed a left-sided throbbing headache, took some Tylenol and went to sleep and relax for the majority of the day. On Wednesday she woke up again with a headache and attempted to take Tylenol for her pain. She denies taking ibuprofen as she was instructed not to since she was placed on Xarelto 20 mg daily since her procedure. On Wednesday the patient developed a left-sided numbness in her middle, ring and pinky finger after eating breakfast and smoking a cigarette. The numbness and weakness then extended into her left arm up to her elbow, and reports she felt some left-sided face tingling as well. She was able to move her fingers and her arm throughout this 20-minute timeframe and it slowly improved, now back to normal. Daily she has continued to have the throbbing headache and became concerned, therefore had her stepson drive her to the emergency room today for evaluation. Her headache is rated a 7/10 currently. She is asking for something for pain, received Benadryl and Toradol IV in the ER however it has not helped. Reports her last bowel movement was last , and was on Dulcolax however has not seemed to improve things. She is eating and drinking without difficulty. Patient denies any chest pain, palpitations or flutter currently. She is tearful at times throughout our conversation and appears quite anxious. When discussing quitting smoking cigarettes she is agreeable to attempting to wean off, and denies need for nicotine patch. She follows with Dr. العراقي with cardiology as an outpatient. CT of the head is negative. CTA and MRI brain are ordered. PT lab work appears WNL. Allergies Allergy/AdvReac Type Severity Reaction Status Date / Time coconut Allergy Intermediate HIVES Verified 07/31/21 13:34 watermelon Allergy Intermediate HIVES Verified 07/31/21 13:34 latex Allergy Mild states Verified 07/31/21 13:34 bandaides and tape burn her skin No Known Drug Allergies Allergy Unknown . Verified 07/31/21 13:34 Home Medications Medication Instructions Recorded Confirmed Type famotidine 40 mg tablet (Pepcid) 40 mg PO HS 07/25/20 07/31/21 History clindamycin phosphate 1 % lotion 1 applic TOPICAL BID 08/14/20 07/31/21 History doxycycline hyclate 100 mg capsule 100 mg PO BID PRN 08/14/20 07/31/21 History spironolactone 100 mg tablet 100 mg PO QPM 08/14/20 07/31/21 History acetaminophen 500 mg tablet 1,000 mg PO Q6H PRN #60 tab 08/15/20 07/31/21 Rx (Tylenol Extra Strength) ibuprofen 600 mg tablet 600 mg PO Q6H #60 tab 08/15/20 07/31/21 Rx rivaroxaban 20 mg tablet (Xarelto) 20 mg PO PM 07/31/21 07/31/21 History Past Med/Surg History Medical History (Updated 07/31/21 @ 17:56 by Sameer Ferreira DO) Abdominal cramping Dysfunctional uterine bleeding Dysmenorrhea GERD (gastroesophageal reflux disease) Hidradenitis suppurativa History of bronchitis Was getting frequently so given albuterol PRN, using albuterol daily during spring/fall. History of kidney stones Polyp, stomach Stomach erosion WPW (Cmhhm-Crvhkntat-Apcps syndrome) follows with Dr. Melendez. Per cardio 06/19/20 "she underwent EP study at [facility] several years ago without sustained or inducible arrhythmias. It was determined that the Accessory pathway was possibly very close to the [place] electrical system and ablation was not recommended. It was also felt her arrhythmia is likely low risk for sudden cardiac or sustained SVT. In February 2020, due to complaints of worsening palpitations, patient underwent ZIO monitor which demonstrated normal sinus rhythm without significant arrhythmias. Symptoms correlated to normal sinus rhythm or sinus tachycardia." Surgical History (Updated 07/31/21 @ 13:49 by Hanane Strickland PA-C) History of adenoidectomy History of electrophysiologic study History of esophagogastroduodenoscopy (EGD) History of excision of lesion breast History of hernia repair x3 History of surgery removal of HS growth from axilla Family History Grandfather (Maternal) Esophageal cancer Other No family history of adverse response to anesthesia Social History Smoking Status: Current every day smoker Cigarettes Per Day: 1/2 ppd; Second Hand Exposure: Yes; Hx Alcohol Use: Yes Hx Substance Use: No Preferred Language: Italian Communication Ability: Effective [employer] 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 Beliefs That Will Affect Care: None Current Living Situation: Significant Other Feels Safe at Home: Yes Assistive Devices: None Review of Systems Review of Systems: Constitutional: No fever, sweats or chills, + headache as per HPI Eyes: No diplopia, no worsening or blurred vision ENT: normal hearing, no trouble swallowing Respiratory: No cough, sputum, dyspnea at rest or on exertion Cardiovascular: No chest pain, tightness or palpitations Abdomen: No pain, nausea, vomiting, diarrhea or constipation Musculoskeletal: No joint pain, calf pain, swelling Neurologic: + Left-sided arm weakness, middle ring finger and pinky finger numbness and weakness as described per HPI, now resolved, weakness, numbness/tingling, or balance problems Psychiatric: No anxiety or depression Skin: No rash or itch Physical Exam Physical Exam: General: awake, alert, no apparent distress, tearful and appears anxious at times Head: Normocephalic, atraumatic ENT: PERRL, EOMI, no pharyngeal exudate, mucous membranes moist Chest: Clear to auscultation, on room air, no adventitious breath sounds Cardiac: Regular rate and rhythm, no murmur, no JVD, normal peripheral pulses, good capillary refill Abdominal: NABS x 4 quadrants, soft, nondistended, nontender to palpation, no rebound or guarding Extremities: Normal inspection, no peripheral edema or erythema, calfs nontender to palpation Psych: Normal mood and affect Neuro: AAO x 3, strength intact bilaterally and rated 5/5, no motor deficits, speech is clear, no peripheral sensory deficits, negative pronator drift, CN II- XII intact. Results & Data Results & Data ([facility]) Vital Signs (Past 12 Hours) Vital Signs Temp Pulse Pulse Resp BP BP Pulse Ox 07/31/21 13:10 78 14 100 07/31/21 13:00 83 17 99 07/31/21 12:59 79 19 99 07/31/21 12:45 81 79 18 102/61 97 07/31/21 10:42 36.8 C 106 H 18 118/[address] 07/31/21 11:03 CT head/brain wo con CLINICAL HISTORY: headache Technique: Contiguous axial CT images of the head were acquired from the base of the skull to the vertex without intravenous contrast administration. Images were viewed in brain, subdural and bone windows. Automated dose lowering techniques and/or adjustment according to patient size were utilized for this exam. Comparison: Comparison is made to CT head 11/25/2010 Findings: The ventricles, basal cisterns, and cerebral sulci are normal. There is no acute intracranial hemorrhage or evidence of acute territorial infarction. Neither mass effect, shift of the midline structures, nor abnormal extra-axial fluid collections are shown. Imaged portions of the paranasal sinuses and mastoid air cells are clear. The orbits appear normal. There are no acute fractures of the calvaria or scalp swelling. Impression: No acute intracranial hemorrhage, no evidence of acute territorial infarction or other acute intracranial disease process. ACT 112: Negative or not required by law. Electronically signed by: Andi Sexton M.D. 07/31/2021 11:24 AM Chest X-Ray 07/31/21 11:56 XR chest 1V portable CLINICAL HISTORY: Chest Pain TECHNIQUE: Single frontal radiograph of the chest was obtained. Comparison: Comparison is made to chest one view 08/14/2020 FINDINGS: No lines and tubes are seen. The cardiomediastinal silhouette is normal. The lungs are clear. No evidence of pleural effusion or pneumothorax. IMPRESSION: No acute chest disease. ACT 112: Negative or not required by law. Electronically signed by: Andi Sexton M.D. 07/31/2021 12:46 PM ECG Additional Comments: 31-JUL-2021 12:34:06 [facility]-EDSTAT ROUTINE RETRIEVAL Normal sinus rhythm with sinus arrhythmia Normal ECG No previous ECGs available 25mm/s 10mm/mV 150Hz 9.0.9 12SL 241 RUIZ: 11 Referred by: REFERRED SELF Unconfirmed Vent. rate 77 BPM FL interval 164 ms QRS duration 90 ms QT/QTc 350/396 ms Code Status & VTE Plan Code Status Full CODE VTE Prophylaxis Plan VTE Prophylaxis will be ordered: Yes Supervising Physician Co-Signing Physician Notes Attending addendum: The patient was seen and examined in the emergency room She has been complaining of throbbing left temporal headache since the morning of elective cardiac ablation therapy on 25 July this year She has had numbness involving left upper extremity which lasted for about 20 minutes on Wednesday last Still continues to have throbbing headache but no other neuro symptoms She denies any chest pain, palpitation, any cough or shortness of breath On examination Looks well and has some left temporal headache but otherwise hemodynamically stable Chest-clear to auscultate bilaterally Heart-S1, S2 regular, no murmur Abdomen-benign Extremities-no edema BUN ICER-alert, awake and oriented x3, no focal sensory and motor deficit appreciated Her admission labs, EKG and imaging studies reviewed Status post ablation on 25 July for WPW syndrome at [facility] in [place] Coming in with left temporal throbbing headache with an episode of left upper extremity weakness Relevant investigations including imaging studies are unremarkable Neurology has been consulted Agree with assessment and plan as outlined above by Hanane Walsh
[2021-07-31] MEDS ORDERED: OPTIRAY 320 125ml IV ONE (13:43)
--- NOTE | 2021-07-31 14:03 | CT Scan Report ---
CT angio neck with con, CT angio head w con CLINICAL HISTORY: ?cva TECHNIQUE: CT angiography of the head and neck was performed following intravenous administration of iodinated contrast. Automated dose lowering techniques and/or adjustment according to patient size we re utilized for this examination. Comparison: None available at the time of this dictation. FINDINGS: CTA Neck: A 3 vessel aortic arch is shown. There is no significant atherosclerotic plaque in the aor tic arch or the origins of the innominate, left common carotid, and left subclavian arteries. The co mmon carotid, external carotid, cervical segments of the internal carotid arteries, and the cervical segments of the vertebral arteries are patent. There is no hemodynamically significant diameter sten osis or dissection present. The vertebral arteries are codominant. Bullae are seen in the bilateral a pices. CTA Head: The anterior and posterior cerebral circulations are patent. No hemodynamically significan t stenosis, aneurysm, dissection, or arteriovenous malformation is shown. Incidental note is made of common origin of the anterior cerebral arteries, with bifurcation more distal than normal. IMPRESSION: 1. No occlusion, hemodynamically significant stenosis, aneurysm, dissection, or arteriovenous malfor mation in the major intracranial arteries. 2. No occlusion, hemodynamically significant stenosis, or dissection in the major cervical arteries. Assessment of stenosis of the internal carotid arteries is based on NASCET criteria. ACT 112: Negative or not required by law. Electronically signed by: Andi Sexton M.D. 07/31/2021 2:02 PM
[2021-07-31] MEDS ORDERED: HYDROmorphone INJ 0.5 MG/0.5 ML SYR IV STA (14:07)
[2021-07-31] MEDS ORDERED: MAGNESIUM HYDROXIDE SUSP 30 ML UDC PO PRN (14:11)
[2021-07-31] MEDS ORDERED: bisacodyL 5 MG TABEC PO SCH (14:15)
--- NOTE | 2021-07-31 15:16 | Neurology Consultation ---
Date of Consultation July 31, 2021 Assessment & Plan (1) Left temporal headache: 1. CTA head/neck- no acute findings 2. CT head- normal 3. MRI brain ordered with and without 4. add sed rate to labs 5. cardiology for any further evaluation needed 6. continue Xarelto 20 mg daily 7. blood pressure and rate control 8. would not use narcotics for headache, start mg ox 400 mg and riboflavin 400 mg daily, history of kidney stones should not use topamax, depakote 500 mg could be given IV if there is no contraindication 9. smoking cessation strongly urged (2) Left arm weakness: (3) Tobacco abuse: (4) WPW (Ocpfd-Nikdjjhxp-Noyss syndrome): Supervising Physician Co-Signing Physician Notes I have seen and discussed above patient with Dr Becki Caro, neurology. Patient seen and examined. This had patient has a history of occasional throbbing headaches but is never had neurologic accompaniments.. She underwent a Cardiac catheterization and ablation on Wednesday she had very little oral intake over the next day or so and certainly less caffeine intake than typical on Wednesday evening she developed a left-sided throbbing headache which was nonpostural and not associated with other neurologic symptoms. The following morning after being awake for 45 minutes she noted some tingling in first left fingers 3 4 and 5 then the entire hand and up to mid forearm. That lasted 20 minutes was not accompanied by weakness there was some tingling in her left face which was lasted only minutes. No change in vision no change in speech no vertigo no facial droop no weakness. That has not recurred. She did not think there was significant swelling in her left wrist which appears to up had an arterial line. The neurologic symptoms have not recurred but the headache is persisted. She is only taking Tylenol although briefly took nonsteroidal even though told not to do so because she is on Xarelto. None of her medicines were new or changed in dose or discontinued. No family history of DVT PE early stroke or heart attack no personal history of DVT. Prior history of neurologic symptoms. CT CTA evaluated and are unremarkable labs are unremarkable. Patient is awake and alert speech and language are normal affect appropriate no carotid bruits no heart murmurs heart is regular rate and rhythm. Pupils are equal round reactive to light the optic nerves are unremarkable there is normal steele motility facial sensation and facial symmetry. There is mild left temporal tenderness. There is no temporal artery tenderness per se. No jaw click and her neck is supple. There is full strength in the upper and lowers normal sensation to light touch temperature and vibration. Symmetrically mildly brisk reflexes downgoing toes. Tinel's is negative at the left wrist and the left elbow. Xqqrpt-qz-afrl and prxj-qg-anep are normal. This patient's history of headache and neurologic dysfunction post cardiac cath and ablation is concerning for a central event although for the most part it sounds as if she has had a migraine with a transient migrainous accompaniment. This of course is a diagnosis of exclusion. Recommend MRI of the brain provided that is unremarkable I do not think she needs any further vascular work-up other than an echocardiography blood cultures febrile. Steroids are likely contraindicated with her Xarelto use. I would use a dose of Depakote 500 mg if patient not and then treat the headache symptomatically avoiding nonsteroidals as well as triptans. We will follow with you Becki Caro MD History of Present Illness Reason for Consultation: headache, weakness numbness left hand Requesting Physician: HARSHIL Williamson Attending Physician: Siddharth Walsh MD History of Present Illness Lucina is a 31 year old female with PMH- WPW, hydradenitis suppurativa, GERD, chronic smoker 1/2 ppd since age 11, SVT. She is s/p ablation at [facility] in [place] on 07/25/2021 and is currently on Eliquis. They did used her left arm and groin as well per intervention and blood pressure monitoring. She started having a headache Wednesday after being discharged. there is no PMH of migraines. She tried taking tylenol but it didn't help. She was told not to take motrin but it hurt so bad that she took 600 mg and put heat on it. Wednesday she noticed weakness and numbness of her left hand. Initially started in the left third fourth and fifth digits and traveled to the whole hand. She had trouble moving it and could not lift anything or grab anything. This lasted for about 1/2-hour but that has not recurred. She was given migraine cocktail in the ED which has helped some and then Dilaudid and she is now feeling better. The headache was throbbing on the left and the temp area on that side still hurts. denies vision changes, CP, SOB, abdominal pain, NV. Allergies Allergy/AdvReac Type Severity Reaction Status Date / Time coconut Allergy Intermediate HIVES Verified 07/31/21 13:34 watermelon Allergy Intermediate HIVES Verified 07/31/21 13:34 latex Allergy Mild states Verified 07/31/21 13:34 bandaides and tape burn her skin No Known Drug Allergies Allergy Unknown . Verified 07/31/21 13:34 Home Medications Medication Instructions Recorded Confirmed Type famotidine 40 mg tablet (Pepcid) 40 mg PO HS 07/25/20 07/31/21 History clindamycin phosphate 1 % lotion 1 applic TOPICAL BID 08/14/20 07/31/21 History doxycycline hyclate 100 mg capsule 100 mg PO BID PRN 08/14/20 07/31/21 History spironolactone 100 mg tablet 100 mg PO QPM 08/14/20 07/31/21 History acetaminophen 500 mg tablet 1,000 mg PO Q6H PRN #60 tab 08/15/20 07/31/21 Rx (Tylenol Extra Strength) ibuprofen 600 mg tablet 600 mg PO Q6H #60 tab 08/15/20 07/31/21 Rx rivaroxaban 20 mg tablet (Xarelto) 20 mg PO PM 07/31/21 07/31/21 History Patient History Medical History (Updated 07/31/21 @ 13:49 by Hanane Strickland PA-C) Abdominal cramping Dysfunctional uterine bleeding Dysmenorrhea GERD (gastroesophageal reflux disease) Hidradenitis suppurativa History of bronchitis Was getting frequently so given albuterol PRN, using albuterol daily during spring/fall. History of kidney stones Polyp, stomach Stomach erosion WPW (Nzajv-Occkgqxia-Ijfaj syndrome) follows with Dr. Melendez. Per cardio 06/19/20 "she underwent EP study at [facility] several years ago without sustained or inducible arrhythmias. It was determined that the Accessory pathway was possibly very close to the [place] electrical system and ablation was not recommended. It was also felt her arrhythmia is likely low risk for sudden cardiac or sustained SVT. In February 2020, due to complaints of worsening palpitations, patient underwent ZIO monitor which demonstrated normal sinus rhythm without significant arrhythmias. Symptoms correlated to normal sinus rhythm or sinus tachycardia." Surgical History (Updated 07/31/21 @ 13:49 by Hanane Strickland PA-C) History of adenoidectomy History of electrophysiologic study History of esophagogastroduodenoscopy (EGD) History of excision of lesion breast History of hernia repair x3 History of surgery removal of HS growth from axilla Family History Grandfather (Maternal) Esophageal cancer Other No family history of adverse response to anesthesia Social History Smoking Status: Current every day smoker Cigarettes Per Day: 1/2 ppd; Second Hand Exposure: Yes; Hx Alcohol Use: Yes Hx Substance Use: No Preferred Language: Vietnamese Communication Ability: Effective [employer]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 Beliefs That Will Affect Care: None Current Living Situation: Significant Other Feels Safe at Home: Yes Assistive Devices: None Review of Systems Review of Systems: All systems reviewed & are unremarkable except as noted in HPI & below Physical Exam Physical Exam: Physical Exam: Constitutional: appearance over nourished, healthy and normal Ears, Nose, Mouth and Throat: mucous membranes moist, no injection and skin normal, eyes normal Cardiovascular: normal S-1 and S-2 and regular rate and rhythm, pause Respiratory: course breath sounds Musculoskeletal: no peripheral edema and good distal pulses Skin: no stigmata of neurocutaneous disease noted and normal and intact Eyes: extraocular muscles intact (EOMI) and pupils equal, round and reactive to light (PERRL), miotic NEUROLOGIC EXAMINATION: Mental status: Alert and interactive Oriented to full date and location Oriented to person Speech fluent with no evidence of aphasia Cranial Nerves slight asymmetry to left to right Reflexes: Deep tendon reflexes were symmetrical and graded 2/5. Sensory: light cool touch Coordination: finger to nose Gait/Stance: Posture normal. Motor: Negative for pronator drift of out stretched arms with eyes closed. Strength: hand sole trimmer biceps triceps 5/5 bilaterally hip flex 5/5, plantar flex ext 5/5 Results & Data ([facility]) Vital Signs (Past 12 Hours) Vital Signs Temp Pulse Pulse Resp BP BP Pulse Ox 07/31/21 14:10 71 18 100 07/31/21 13:20 72 19 99 12/09/21 13:10 78 14 100 07/31/21 13:00 83 17 99 07/31/21 12:59 79 19 99 07/31/21 12:45 81 79 18 102/61 97 07/31/21 10:42 36.8 C 106 H 18 118/70 99 Laboratory Results Abnormal lab results 07/31/21 07/31/21 Range/Units 12:25 12:25 WBC 11.01 H (4.8-10.8) K/uL Neut # (Auto) 7.78 H (1.4-6.5) K/uL [place] # (Auto) 0.80 H (0.11-0.59) K/uL Immature Gran # (Auto) 0.04 H (0.00-0.02) K/uL Sodium 135 L (136-145) mmol/L BUN/Creatinine Ratio 24.7 H (10-20) AST 12 L (15-37) U/L Diagnostic Findings CT head-No acute intracranial hemorrhage, no evidence of acute territorial infarction or other acute intracranial disease process. CXR-No acute chest disease. CTA head and neck-No occlusion, hemodynamically significant stenosis, aneurysm, dissection, or arteriovenous malformation in the major intracranial arteries. No occlusion, hemodynamically significant stenosis, or dissection in the major cervical arteries.
[2021-07-31] MEDS ORDERED: VITAMIN B COMPLEX TAB PO SCH (17:20)
[2021-07-31] MEDS ORDERED: MAGNESIUM OXIDE 400 MG TAB PO SCH (17:20)
[2021-07-31] MEDS ORDERED: PHARMACIST DISCHARGE MED REC CONSULT PRN (19:03)
[2021-07-31] MEDS ORDERED: GADOBUTROL 65ML VIAL IV ONE (20:51)
[2021-07-31] MEDS ORDERED: SPIRONOLACTONE 100 MG TAB PO SCH (21:00)
[2021-07-31] MEDS ORDERED: RIVAROXABAN 20 MG TAB PO SCH (21:00)
[2021-07-31] MEDS ORDERED: FAMOTIDINE 20 MG TAB PO SCH (21:00)
--- NOTE | 2021-07-31 21:27 | Magnetic Resonance Report ---
MR brain wo/w con CLINICAL HISTORY: Left REDDY, left arm weakness/numbness. COMPARISON STUDY: CT brain from 07/31/2021 TECHNIQUE: Multiplanar multisequence images of the brain were performed before and after Gadavist, 8 .7 mL of IV contrast. Diffusion weighted imaging and ADC mapping was also performed. FINDINGS: Extra-axial space: There is no evidence for a subdural hematoma, There are no extra-axial fluid carole ections. Ventricles and cisterns: The ventricles are normal in size and configuration. There is no evidence f or midline shift or mass effect. Parenchyma: On noncontrast images, there is no evidence for an acute hemorrhage or infarct. No acute diffusion abnormalities are noted on diffusion weighted imaging or ADC mapping. There is normal sanchez -white differentiation. The sulci and gyri appear normal without effacement. The midline structures a re unremarkable. The posterior fossa structures appear normal. On postcontrast images, there is no evidence for enhancing mass lesion. Osseous structures: The paranasal sinuses are well aerated. The mastoid air cells are well aerated. Soft tissues: No focal soft tissue abnormalities are identified. IMPRESSION: No acute intracranial abnormalities. ACT 112: Negative or not required by law. Electronically signed by: Jason Alcaraz M.D. 07/31/2021 9:26 PM
--- NOTE | 2021-08-01 06:27 | Electrocardiogram Report ---
Test Reason : Blood Pressure : / mmHG Vent. Rate : 077 BPM Atrial Rate : 077 BPM P-R Int : 164 ms QRS Dur : 090 ms QT Int : 350 ms P-R-T Axes : 055 062 046 degrees QTc Int : 396 ms Normal sinus rhythm with sinus arrhythmia Premature atrial complexes No previous ECGs available Confirmed by Sudhir Burch ([id number]) on 08/01/2021 6:26:21 AM Referred By: REFERRED SELF Confirmed By:Sudhir Burch
[2021-08-01] MEDS ORDERED: POLYETHYLENE (MIRALAX) 17 GM PACK PO SCH (09:00)
== END 2021-07-31 23:15 | disposition left against medical advice (07) ==
LOC: ED 10:39 → EDINP 10:39

== ENCOUNTER 2023-02-16 05:37 | Observation (INO) ==
--- NOTE | 2023-02-01 11:47 | PAT Medication Instructions ---
Medication Instructions Date of Service February 01, 2023 Home Medications famotidine 40 mg tablet (Pepcid) 40 mg PO HS metoprolol succinate 25 mg tablet,extended release 24 hr 25 mg PO QAM ibuprofen 200 mg tablet 200 mg PO Q6H PRN albuterol sulfate 90 mcg/actuation aerosol inhaler (Proventil HFA) 2 puff inhalation QID PRN spironolactone 100 mg tablet 100 mg PO QAM ASK your surgeon for instructions ibuprofen 200 mg tablet 200 mg PO Q6H PRN DO NOT take the morning of surgery spironolactone 100 mg tablet 100 mg PO QAM Take morning of surgery With a small sip of water, OTHERWISE NOTHING TO EAT OR DRINK AFTER MIDNIGHT: metoprolol succinate 25 mg tablet,extended release 24 hr 25 mg PO QAM albuterol sulfate 90 mcg/actuation aerosol inhaler (Proventil HFA) 2 puff inhalation QID PRN(use if needed; please bring with you to hospital day of surgery if possible) Take evening before surgery famotidine 40 mg tablet (Pepcid) 40 mg PO HS albuterol sulfate 90 mcg/actuation aerosol inhaler (Proventil HFA) 2 puff inhalation QID PRN(if needed) Other Notes If you have any questions please call us at [phone] or [phone] or [phone] or [phone]
--- NOTE | 2023-02-10 12:45 | Anesthesiology Consultation ---
Date of Service February 10, 2023 Assessment & Plan (1) Encounter for pre-operative examination: - awaiting cardiology response to optimization form. - hematology records: "...If the patient requires transfusions in the future, ABO/Rh compatible units lacking the D antigen, which are TRACEE-AHG compatible, will be provided. Units from 15% of the donor population are expected to be compatible..." - Pt states that her blood type is O negative, partial D positive and that routine type and screen will incorrectly flag this as O positive. Blood card is scanned to the chart. Ravindra advised they will add notation that blood type is O negative, partial D positive to type and screen report as there is not another option for resulting type and screen. Ravindra advised she would be transfused with Rh negative which is available at [facility]. Pt states she was also advised of this option for transfusing by hematology, mentions they also said if she wanted she could self-donate. I advised this is often not recommended so close to surgery though if she prefers to do that she could postpone surgery to arrange this. She states would prefer to move ahead with procedure as scheduled. She d enies additional questions or concerns. - Case discussed in detail with Dr. Meza. He advised that a cardiology clearance from either [facility] or [facility] is needed prior to surgery. He agreed that it is not advised patient self-donate this close to surgery and advised she could proceed with current plan as advised by blood bank. Mikhail with surgeon's office made aware of this in detail. - check urine test STAT am DOS. - Pt mentions she was trialing holding watermelon since as she read allergies can change/improve after and did not experience hives, denies eating watermelon. She was instructed not to expose herself to known allergens unless she is under guidance of an handyman/healthcare provider given risk of allergic reaction including that subsequent reactions can be more severe than previous reactions resulting in morbidity or . She verbalized full understanding, denied questions or concerns. - cardiology 06/29/22 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 Redo ablation at [facility] with Dr. Shankar 07/2021 successful for bypass tract. 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 Medication instructions provided according to the PAT guidelines. History Surgery Operation Date: 02/16/23 07:15 Proposed Procedures p C6-C7 Cervical Disc Arthroplasty - Fransico Rodrigues MD Height/Weight Height: 5 ft 4 in Weight: 104.326 kg Allergies Allergy/AdvReac Type Severity Reaction Status Date / Time coconut Allergy Intermediate HIVES Verified 02/01/23 09:15 watermelon Allergy Intermediate HIVES Verified 02/01/23 09:15 No Known Drug Allergies Allergy Unknown . Verified 02/01/23 09:15 adhesive Allergy "if left Verified 02/01/23 09:15 on too long, tape and bandaids take my skin off" Medications Home Medications Medication Instructions Recorded Confirmed Last Taken famotidine 40 mg tablet (Pepcid) 40 mg PO HS 07/25/20 02/01/23 08/18/21 metoprolol succinate 25 mg 25 mg PO QAM 04/04/22 02/01/23 Unknown tablet,extended release 24 hr ibuprofen 200 mg tablet 200 mg PO Q6H PRN Pain 09/11/22 02/01/23 Unknown albuterol sulfate 90 mcg/actuation 2 puff inhalation QID PRN Wheezing 02/01/23 02/01/23 Unknown aerosol inhaler (Proventil HFA) spironolactone 100 mg tablet 100 mg PO QAM 02/01/23 02/01/23 Unknown Past Medical History Medical History (Updated 02/10/23 @ 13:03 by Karen Rodas PA-C) Blood type O- Pt states that her blood type is O negative, partial D positive and that routine type and screen will incorrectly flag this as O positive. Blood card is scanned to the chart. Brain TIA 07/2021 Cervical facet joint syndrome ROM>cannot turn head the whole way to her left, turning to right is fine, can look up and down Cervical radiculopathy GERD (gastroesophageal reflux disease) controlled, stable per pt Hidradenitis suppurativa History of anxiety History of bronchitis 11/2022, last albuterol inhaler use 2 months ago History of kidney stones Hx of blood clots "250mL blood clot in abdomen following the partial oophorectomy, instituted another surgery to go back in and clean it up" Polyp, stomach "Still have this, never did anything with it" Stomach erosion hx WPW (Ntjon-Zusgbzget-Fpsee syndrome) follows with [facility] and [facility] cardio Patient denies h/o seizures, heart attack, heart failure, DM, HTN, or blood transfusions. Exercise / Class Metabolic Activity III < 4 Walking/Shop/Light housework (denies chest discomfort or shortness of breath with usual activities, does not do stairs often) Past Family History Family History Grandfather (Maternal) Esophageal cancer Other No family history of adverse response to anesthesia Past Surgical History Surgical History History of adenoidectomy History of cardiac radiofrequency ablation (RFA) x3; sent to [facility] [place]>2019, attempted twice "within short period of time, did not work"; 07/2021, [facility] in [place], attempted Cardiac Ablation>"thought it had worked, but when re-checked in 09/2021, my heart rate was still irregular, and has not had it re-checked since then." History of electrophysiologic study checking for tarsal tunnel in her feet History of esophagogastroduodenoscopy (EGD) History of excision of lesion breast>benign History of hernia repair x3 History of surgery removal of HS growth from axilla Hx of laparoscopy to remove blood clot from abdomen Hx of unilateral oophorectomy "part of ovary removed" Past Anesthesia History No Hx of Anesthesia Complications and No Family Hx of Anesthesia Complications History of PONV No Hx of PONV and No Hx of Motion Sickness Social History Smoking Status: Current every day smoker (-advised) tobacco type: cigarettes Smoking cigarettes per day: 5 Do You Dip or Chew Tobacco: No Hx Alcohol Use: Yes alcohol intake frequency: other Alcohol Intake Frequency Comment: very rarely Hx Substance Use: No substance use type: does not use Review of Systems Patient denies chest pain, shortness of breath, dyspnea on exertion, snoring, witnessed apneas, fever, chills, cough, wheezing, or palpitations. Physical Exam Vital Signs Vitals BP 136/82 P 83 TEMP 98.2 SP02 99% on RA RESP 18 Physical TMD 3.5 finger breadths Mallampati Score 2 Dentition: intact, denies chipped or loose teeth, caps/crowns, implants or bridges Lungs: normal respiratory effort. Good air movement, clear throughout to auscultation, no adventitious breath sounds Cardiac: regular rate and rhythm, no murmurs noted Carotid arteries: negative bruit bilat Lab Results Anesthesia Preop Results Results Anesthesia Widget: Na 139 mmol/L (136-145) 02/10/23 K 4.2 mmol/L (3.5-5.1) 02/10/23 Cl 110 mmol/L (98-107) H 02/10/23 CO2 24 mmol/L (21-32) 02/10/23 BUN 15 mg/dl (6-23) 02/10/23 Creat 1.04 mg/dl (0.6-1.2) 02/10/23 Glucose Level 81 mg/dl (70-99(Fasting)) 02/10/23 PT 10.2 Seconds (9.0-12.0) 02/10/23 PTT 30.2 Seconds (21.0-31.0) 02/10/23 INR 0.9 (0.9-1.1) 02/10/23 Urine Test Negative (Negative) 02/10/23 Blood Type O Positive 02/10/23 Antibody Screen NEGATIVE 02/10/23 Testing Laboratory Results 01/22/2023 WBC: 9.6 H/H: 14 PLATELETS: 339 Electrocardiogram Date: 06/29/22 NSR, rate 75 bpm Echocardiogram Date: 12/25/20 EF 55-59% Normal LV wall motion No valvular disease Other Testing Chest CT 04/04/22 Unremarkable evaluation of the chest. Neck CTA 07/31/21 1. No occlusion, hemodynamically significant stenosis, aneurysm, dissection, or arteriovenous malformation in the major intracranial arteries. 2. No occlusion, hemodynamically significant stenosis, or dissection in the major cervical arteries. COVID-19 Risk Screen Screening Information COVID-19 Screen Date: 02/10/23 Exposure 21 Days Family/Household +COVID Last 21 Days: No Exposure 10 Days Any COVID Exposure Last 10 Days: No Symptoms Last 10 Days Experienced COVID Sx Last 10 Days: No + COVID 0-90 Days COVID + in Last 0-90 Days: No
[2023-02-16] MEDS ORDERED: LR 15ML/HR IV SCH (06:00)
[2023-02-16] MEDS ORDERED: LR 60ML/HR IV SCH (06:00)
[2023-02-16] MEDS ORDERED: ceFAZolin 2000MG 2,000 MG/15 ML SYR IV SCH (06:00)
[2023-02-16] MEDS ORDERED: fentaNYL citrate PF 100 MCG/2 ML VIAL ONE ×3 (06:52→09:04)
[2023-02-16] MEDS ORDERED: ONDANSETRON INJ 2 MG/ML 2 ML VIAL ONE (06:52)
[2023-02-16] MEDS ORDERED: PROPOFOL IV EMULSION 10 MG/ML 20 ML VIAL IV ONE ×2 (06:52→10:49)
[2023-02-16] MEDS ORDERED: LIDOCAINE 2% 2 ML VIAL/AMP(20MG/ML) INFIL ONE (06:52)
[2023-02-16] MEDS ORDERED: MIDAZOLAM HCL 1 MG/ML 2ML VIAL ONE (06:52)
[2023-02-16] MEDS ORDERED: DEXAMETHASONE SOD INJ 4 MG/ML VIAL ONE (06:52)
--- NOTE | 2023-02-16 06:52 | History & Physical Bridge Note ---
Date of Service February 16, 2023 History & Physical Bridge Note I have examined the patient, reviewed the History & Physical and in the interval since the performance of the History & Physical I have noted the following changes of clinical significance: no changes noted
[2023-02-16] MEDS ORDERED: THROMBIN 5000 UNITS KIT ONE (07:17)
[2023-02-16] MEDS ORDERED: VANCOMYCIN HCL 1000MG/20ML VIAL ONE (07:17)
[2023-02-16] MEDS ORDERED: GELATIN SPONGE 12-7MM ONE (07:18)
[2023-02-16] MEDS ORDERED: HYDROmorphone INJ 2 MG/ML SYR/VIAL IV PRN ×2 (07:26→07:46)
[2023-02-16] MEDS ORDERED: ATROPINE SULFATE 0.1 MG/ML 10ML SYR IV PRN ×2 (07:26→07:46)
[2023-02-16] MEDS ORDERED: PROMETHAZINE HCL 12.5 MG in SODIUM CHLORIDE 0.9% 50 ML IV PRN ×3 (07:26→14:03)
[2023-02-16] MEDS ORDERED: ePHEDrine sulfate 50 MG/ML AMP IV PRN ×2 (07:26→07:46)
[2023-02-16] MEDS ORDERED: ONDANSETRON INJ 2 MG/ML 2 ML VIAL IV PRN ×3 (07:26→14:03)
[2023-02-16] MEDS ORDERED: fentaNYL citrate PF 100 MCG/2 ML VIAL IV PRN ×2 (07:26→07:46)
[2023-02-16] MEDS ORDERED: ROCURONIUM BROMIDE 10 MG/ML 5 ML VIAL IV ONE ×8 (07:58→10:36)
[2023-02-16] MEDS ORDERED: SUGAMMADEX SODIUM 200 MG/2 ML VIAL IV ONE (09:26)
[2023-02-16] MEDS ORDERED: FLOSEAL HEMOSTATIC MATRIX 5ML TOP ONE (10:08)
[2023-02-16] MEDS ORDERED: HYDROmorphone INJ 2 MG/ML SYR/VIAL ONE (10:51)
--- NOTE | 2023-02-16 11:34 | Post Operative Brief Note ---
PG Immediate Post Op with CF Date of Surgery February 16, 2023 Pre & Post Diagnosis Operation Date: 02/16/23 07:15 Pre-Op Diagnosis: 1. Cervical Radiculopathy 2. Traumatic Disc Herniation of Cervical Spine 3. Left Upper Extremity Weakness Post-Op Diagnosis: 1. Cervical Radiculopathy 2. Traumatic Disc Herniation of Cervical Spine 3. Left Upper Extremity Weakness I identified the patient and participated in the time-out.: Yes Procedure Operation Date: 02/16/23 07:15 Actual Procedures p C6-C7 Cervical Disc Arthroplasty(Not Applicable) - Fransico Rodrigues MD Surgeon Fransico Rodrigues MD [employer] None Estimated Blood Loss 20 Findings Consistent with Post-Op Diagnosis Specimens Specimen Description: No specimen per surgeon Overlapping Procedure I was present for: the critical portions of procedure.
--- NOTE | 2023-02-16 11:42 | Fluoroscopy Report ---
INTRAOPERATIVE RADIOGRAPHS CLINICAL HISTORY: Cervical disc arthroplasty. Fluoro time: 172 seconds. Nikar: Impression 69.11 mGy FINDINGS: 12 spot fluoroscopic views of the cervical spine are presented. There is evidence of a C6-C 7 cervical disc arthroplasty. The disc spacer appears appropriately positioned. An endotracheal tube is in place. IMPRESSION: Intraoperative images of the cervical spine as above. Electronically signed by: Eddy Jackson M.D. 02/16/2023 11:41 AM
--- NOTE | 2023-02-16 12:56 | Anesthesiology Progress Note ---
Date of Service February 16, 2023 Anesthesia Post Procedure Vital Signs Vital Signs: Temp Pulse Pulse Resp BP Pulse Ox O2 Del Method 02/16/23 12:25 57 L 13 109/71 97 Oxymask 02/16/23 12:15 55 L 11 L 119/74 97 Oxymask 02/16/23 12:35 36.3 C L 55 L 12 116/68 97 Nasal Cannula 02/16/23 12:05 58 L 13 110/72 96 Oxymask 02/16/23 11:55 58 L 13 113/74 95 Oxymask 02/16/23 11:45 76 13 116/75 96 Oxymask 02/16/23 11:35 72 12 129/79 95 Oxymask 02/16/23 11:25 36.2 C L 87 12 131/85 94 Oxymask 02/16/23 06:03 Room Air 02/16/23 06:01 36.9 C 71 20 127/76 97 Room Air O2 Flow Rate 02/16/23 12:25 4 02/16/23 12:15 4 02/16/23 12:35 2 02/16/23 12:05 4 02/16/23 11:55 6 02/16/23 11:45 6 02/16/23 11:35 6 02/16/23 11:25 6 02/16/23 06:03 02/16/23 06:01 Transfer of Care Handoff Completed per policy Notes Mental Status: alert / awake / arousable and participated in evaluation Patient Amnestic to Procedure: Yes Nausea / Vomiting: adequately controlled Pain: adequately controlled Airway Patency, RR, SpO2: stable & adequate BP & HR: stable & adequate Hydration State: stable & adequate Anesthetic Complications: no major complications apparent
[2023-02-16] MEDS ORDERED: ACETAMINOPHEN 1,000 MG/100 ML VIAL IV PRN ×2 (14:03→15:05)
[2023-02-16] MEDS ORDERED: MAGNESIUM HYDROXIDE SUSP 30 ML UDC PO PRN (14:03)
[2023-02-16] MEDS ORDERED: diphenhydrAMINE Capsule 25 MG CAP PO PRN (14:03)
[2023-02-16] MEDS ORDERED: HYDROmorphone INJ 0.5 MG/0.5 ML SYR IV PRN ×2 (14:03→15:05)
[2023-02-16] MEDS ORDERED: IBUPROFEN 200 MG TAB PO PRN (14:03)
[2023-02-16] MEDS ORDERED: DO NOT ADMINISTER PNEUMOCOCCAL VACCINE PRN (14:03)
[2023-02-16] MEDS ORDERED: SOD PHOSPHATE/SOD BIPHOSPHATE ENEMA 132 ML BTL PR PRN (14:03)
[2023-02-16] MEDS ORDERED: LORazepam 2 MG/1 ML VIAL IV PRN (14:03)
[2023-02-16] MEDS ORDERED: hydrOXYzine HCl 25 MG TAB PO PRN (14:03)
[2023-02-16] MEDS ORDERED: LORazepam 0.5 MG TAB PO PRN (14:03)
[2023-02-16] MEDS ORDERED: bisacodyL 10 MG SUPP PR PRN (14:03)
[2023-02-16] MEDS ORDERED: RACEPINEPHRINE 2.25% NEBU SOLN 0.5 ML VIAL INH PRN (14:03)
[2023-02-16] MEDS ORDERED: FAMOTIDINE 20 MG TAB PO PRN (14:03)
[2023-02-16] MEDS ORDERED: ONDANSETRON 4 MG OD TAB PO PRN (14:03)
[2023-02-16] MEDS ORDERED: ALUMINUM/MAGNESIUM SUSP 30 ML UDC PO PRN (14:03)
[2023-02-16] MEDS ORDERED: ACETAMINOPHEN 500 MG TAB PO PRN (14:03)
[2023-02-16] MEDS ORDERED: dexAMETHasone 8 MG in SYRINGE 0 ML IV PRN (14:03)
[2023-02-16] MEDS ORDERED: NALOXONE HCL 0.4 MG/1 ML VIAL/CARP IV PRN (14:03)
[2023-02-16] MEDS ORDERED: ALBUTEROL HFA 8 GM INHALER INH PRN (14:03)
[2023-02-16] MEDS ORDERED: DO NOT ADMINISTER FLU VACCINE PRN (14:03)
[2023-02-16] MEDS ORDERED: METOCLOPRAMIDE HCL INJ 5 MG/ML 2 ML VIAL IV PRN (14:03)
--- NOTE | 2023-02-16 14:59 | Operative Report ---
PG Post Operative Report Pre & Post Diagnosis Operation Date: 02/16/23 07:15 Pre-Op Diagnosis: 1. Cervical Radiculopathy 2. Traumatic Disc Herniation of Cervical Spine 3. Left Upper Extremity Weakness Post-Op Diagnosis: 1. Cervical Radiculopathy 2. Traumatic Disc Herniation of Cervical Spine 3. Left Upper Extremity Weakness I identified the patient and participated in the time-out.: Yes Procedure Operation Date: 02/16/23 07:15 Actual Procedures p C6-C7 Cervical Disc Arthroplasty(Not Applicable) - Fransico Rodrigues MD NuVasive simplify artificial disc 4 mm/medium Surgeon Fransico Rodrigues MD Financial Compliance Officer None Estimated Blood Loss 20 Findings Consistent with Post-Op Diagnosis Specimens none Description of Procedure Patient was taken to the operating room after adequate anesthesia was carefully positioned supine on the OSI flat top table. At this point I then went ahead with a preprep of the cervical spine and then positioning. C-arm was brought in, I used this to mary for the incision area for the procedure followed by then prepping and draping. Began the procedure with a left-sided approach to the anterior aspect of the cervical spine in standard fashion going along the medial border of the sternocleidomastoid and advancing down to the anterior aspect of the cervical spine without issues. Once in place, I then used fluoroscopy to mary for the area of the disc, this was carefully checked using C-arm radiography on AP and lateral views. After doing so, this area was marked followed by then placement of retractors after mobilizing some of the tissues in this region. With retractor set, distractor pins were then placed under fluoroscopic control. Operative microscope was brought in. I began the procedure with an anterior annulotomy followed by then thorough removal of disc material in the interspace including cartilage from the endplates. After thorough general discectomy was completed, I moved the posterior aspect where I used a high-speed bur to thin some of the remaining spondylosis posterior followed by then mobilization of the remaining posterior structures including posterior longitudinal ligament across the disc base and then also checking for disc herniation fragments. After the decompression was completed I then moved ahead with the trials, selecting the size as noted, 4 mm in height, medium footprint for the NuVasive simplify artificial disc replacement. The trial reviewed both AP and lateral views using C arm, and then marked for the midline followed by then insertion of the keel tool and this was inserted under fluoroscopic control providing the keel cut for the artificial disc replacement. This was checked fluoroscopically, I then obtained the device and using fluoroscopic control tapped this into proper position. With this completed, it was checked for depth, images were then obtained on AP and lateral views. The distractor pins were removed with placement of Floseal and bone wax to the insertion sites. Final images were obtained, I then moved ahead with irrigating the operative site, vancomycin powder was placed followed by then closure using 3-0 Vicryl sutures and then a running 3-0 Vicryl subcuticular followed by benzoin and Steri-Strips. Sterile dressing is applied, the patient tolerated procedure well was taken recovery room Wednesday condition. I attest to the content of the Intraoperative Record and any orders documented therein. Any exceptions are noted below.
--- NOTE | 2023-02-16 15:17 | Hospitalist Consultation ---
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 The hospitalist service was consulted for routine medical management. Postoperative pain Acetaminophen 1000mg IV q8h scheduled Toradol 30mg IV q6h scheduled Percocet 1-2 tab PO q4h prn moderate pain Dilaudid 1mg IV q2h prn severe pain Continue bowel regimen Continue antiemesis regimen prn WPW EKG ordered Continue home regimen Continue rest of management per surgeon's orders. FEN: clear liquid diet, advance as tolerated, LR@75mL/hr Code status: full code DVT ppx: SCDs Dispo: med/telemetry (2) WPW (Gpebs-Wvzgthadq-Ufqde syndrome): Supervising Physician Co-Signing Physician Notes Resident Physician Supervision Note: I independently interviewed and examined the patient and verified the mendoza history and physical, reviewed labs and image studies and agree with resident findings and care plan. 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 The hospitalist service was consulted for routine medical management. Patient was seen at bedside. Patient notes postoperative neck pain but otherwise feels well. Patient denies headache, change in vision, fever, chills, CP, SOB, abdominal pain, nausea, vomiting, and diarrhea. Vitals are stable. Allergies Allergy/AdvReac Type Severity Reaction Status Date / Time coconut Allergy Intermediate HIVES Verified 02/16/23 05:59 watermelon Allergy Intermediate HIVES Verified 02/16/23 05:59 No Known Drug Allergies Allergy Unknown . Verified 02/16/23 05:59 adhesive Allergy "if left Verified 02/16/23 05:59 on too long, tape and bandaids take my skin off" Home Medications Medication Instructions Recorded Confirmed Type famotidine 40 mg tablet (Pepcid) 40 mg PO HS 07/25/20 02/16/23 History metoprolol succinate 25 mg 25 mg PO QAM 04/04/22 02/16/23 History tablet,extended release 24 hr ibuprofen 200 mg tablet 200 mg PO Q6H PRN Pain 09/11/22 02/16/23 History albuterol sulfate 90 mcg/actuation 2 puff inhalation QID PRN Wheezing 02/01/23 02/16/23 History aerosol inhaler (Proventil HFA) spironolactone 100 mg tablet 100 mg PO QAM 02/01/23 02/16/23 History Patient History Medical History Blood type O- Pt states that her blood type is O negative, partial D positive and that routine type and screen will incorrectly flag this as O positive. Blood card is scanned to the chart. Brain TIA 07/2021 Cervical facet joint syndrome ROM>cannot turn head the whole way to her left, turning to right is fine, can look up and down Cervical radiculopathy GERD (gastroesophageal reflux disease) controlled, stable per pt Hidradenitis suppurativa History of anxiety History of bronchitis 11/2022, last albuterol inhaler use 2 months ago History of kidney stones Hx of blood clots "250mL blood clot in abdomen following the partial oophorectomy, instituted another surgery to go back in and clean it up" Polyp, stomach "Still have this, never did anything with it" Stomach erosion hx WPW (Dqqci-Btvnoodyr-Ommqg syndrome) follows with [facility] and [facility] cardio Surgical History History of adenoidectomy History of cardiac radiofrequency ablation (RFA) x3; sent to [facility]>2020, attempted twice "within short period of time, did not work"; 07/2021, [facility] in [place], attempted Cardiac Ablation>"thought it had worked, but when re-checked in 09/2021, my heart rate was still irregular, and has not had it re-checked since then." History of electrophysiologic study checking for tarsal tunnel in her feet History of esophagogastroduodenoscopy (EGD) History of excision of lesion breast>benign History of hernia repair x3 History of surgery removal of HS growth from axilla Hx of laparoscopy to remove blood clot from abdomen Hx of unilateral oophorectomy "part of ovary removed" Family History Grandfather (Maternal) Esophageal cancer Other No family history of adverse response to anesthesia Social History Smoking Status: Current every day smoker (-advised) Cigarettes Per Day: 5; Second Hand Exposure: No; Do You Dip or Chew Tobacco: No; Tobacco Cessation Education Requested by Patient: No Hx Alcohol Use: Yes Hx Substance Use: No Preferred Language: German Communication Ability: Effective Visual Impairment: No Limitations Hearing Ability: Normal Labor And Delivery Registered Nurse Required: No Beliefs That Will Affect Care: None marital status: Single Current Living Situation: Family and Significant Other Current Living Situation Comment: with fiance current occupational status: employed current occupation: works with special needs adults Other Information That Helps Us Care for You: No Feels Safe at Home: Yes Safety Concerns: Feels Safe At This Time Assistive Devices: Contacts Review of Systems Review of Systems: See HPI Physical Exam Physical Exam: Constitutional: tired-appearing, no acute distress HEENT: NCAT, no conjunctival injection, neck sterile dressing in place CV: regular rhythm, no murmur appreciated, extremities well-perfused, no LE edema Resp: CTABL, no wheezes/rales/rhonchi appreciated, no increased work of breathing GI: soft, nondistended, nontender, BS normoactive MSK: no gross deformities appreciated, no calf tenderness Skin: warm, dry, no rash appreciated Neuro: alert, oriented, no focal neurologic deficit appreciated Results & Data Results & Data Vital Signs (Past 12 Hours) Vital Signs Temp Pulse Pulse Resp BP Pulse Ox O2 Del Method 02/16/23 14:49 36.5 C 62 16 117/74 96 Room Air 02/16/23 14:34 60 16 97 Nasal Cannula 02/16/23 14:11 36.8 C 55 L 14 110/55 L 97 Nasal Cannula 02/16/23 14:00 36.7 C 60 14 107/70 96 Nasal Cannula 02/16/23 13:35 58 L 13 131/85 97 Nasal Cannula 02/16/23 13:20 56 L 14 111/61 96 Nasal Cannula 02/16/23 13:05 56 L 12 116/66 97 Nasal Cannula 02/16/23 12:50 57 L 13 119/66 96 Nasal Cannula 02/16/23 12:25 57 L 13 109/71 97 Oxymask 02/16/23 12:15 55 L 11 L 119/74 97 Oxymask 02/16/23 12:35 36.3 C L 55 L 12 116/68 97 Nasal Cannula 02/16/23 12:05 58 L 13 110/72 96 Oxymask 02/16/23 11:55 58 L 13 113/74 95 Oxymask 02/16/23 11:45 76 13 116/75 96 Oxymask 02/16/23 11:35 72 12 129/79 95 Oxymask 02/16/23 11:25 36.2 C L 87 12 131/85 94 Oxymask 02/16/23 06:03 Room Air 02/16/23 06:01 36.9 C 71 20 127/76 97 Room Air O2 Flow Rate 02/16/23 14:49 2 02/16/23 14:34 2 02/16/23 14:11 2 02/16/23 14:00 2 02/16/23 13:35 2 02/16/23 13:20 2 02/16/23 13:05 2 02/16/23 12:50 2 02/16/23 12:25 4 02/16/23 12:15 4 02/16/23 12:35 2 02/16/23 12:05 4 02/16/23 11:55 6 02/16/23 11:45 6 02/16/23 11:35 6 02/16/23 11:25 6 02/16/23 06:03 02/16/23 06:01 Resident Activity Tracking Resident Involvement: Resident Care Provided Care Provided: Adult Hospital Medicine
[2023-02-16] MEDS: oxyCODONE/ACETAMINOPHEN 5mg/325mg TAB PO PRN ×3 (15:24→23:25)
[2023-02-16] MEDS: LACTATED RINGER'S 1,000 ML IV SCH (15:25)
[2023-02-16] MEDS: ACETAMINOPHEN 1,000 MG/100 ML VIAL IV SCH ×2 (16:43→23:19)
[2023-02-16] MEDS: KETOROLAC 30 MG/ML VIAL IV SCH ×2 (16:49→19:09)
[2023-02-16] MEDS: ceFAZolin 1000MG 1,000 MG/7.5 ML SYR IV SCH (17:48)
[2023-02-16] MEDS ORDERED: CHLORASEPTIC 1.4% SOLN 180 ML BTL MT PRN (18:29)
[2023-02-16] MEDS ORDERED: FAMOTIDINE 40 MG TABLET PO SCH (21:00)
[2023-02-16] MEDS ORDERED: DOCUSATE SODIUM/SENNA 50/8.6MG TAB PO SCH (21:00)
[2023-02-17] MEDS: KETOROLAC 30 MG/ML VIAL IV SCH (00:25)
[2023-02-17] MEDS: ceFAZolin 1000MG 1,000 MG/7.5 ML SYR IV SCH (00:47)
[2023-02-17] MEDS: oxyCODONE/ACETAMINOPHEN 5mg/325mg TAB PO PRN (03:25)
[2023-02-17] MEDS: LACTATED RINGER'S 1,000 ML IV SCH (03:27)
[2023-02-17] MEDS ORDERED: POLYETHYLENE (MIRALAX) 17 GM PACK PO SCH (06:00)
[2023-02-17 07:24] LABS: BUN Creatinine Ratio 12.5 (10-20); Calcium 8.3 mg/dl (8.6-10.3); Creatinine Clr Calc Pharmacy 125.7 ml/min; Est GFR (African American) 113.1 ml/min; Est GFR (Non-African American) 97.6 ml/min; Potassium 3.9 mmol/L (3.5-5.1)
[2023-02-17 07:29] LABS: Basophils # (auto) 0.02 K/uL (0-0.2); Basophils % (auto) 0.2 %; Eosinophils % (auto) 0.9 %; Hematocrit (blood only) 35.3 % (37.0-47.0); Immature Granulocytes # (auto) 0.02 K/uL (0.01-0.20); Immature Granulocytes % (auto) 0.2 %; Lymphocytes # (auto) 2.48 K/uL (1.2-3.4); Lymphocytes % (auto) 21.9 %; Mean Corpuscular Volume 85.3 fL (80.0-100.0); Mean Platelet Volume 9.5 fL (9.4-12.4); Monocytes # (auto) 0.69 K/uL (0.11-0.59); Monocytes % (auto) 6.1 %; Neutrophils # (auto) 8.02 K/uL (1.40-6.50); Neutrophils % (auto) 70.7 %; Platelet Count 228 K/uL (130-400); RDW Standard Deviation 40.2 fL (36.4-46.3); Red Blood Count 4.14 M/uL (4.20-5.40); White Blood Count 11.33 K/ul (4.8-10.8)
[2023-02-17] MEDS ORDERED: oxyCODONE HCL IR 5 MG TAB (IMMEDIATE RELEASE) PO PRN (07:39)
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
[2023-02-17] MEDS: ACETAMINOPHEN 1,000 MG/100 ML VIAL IV SCH (08:02)
--- NOTE | 2023-02-17 08:55 | Orthopedic Progress Note ---
Date of Service February 17, 2023 Subjective Patient notes that she has some incisional pain, but she is swallowing without issue, and her left arm symptoms are improved as is some of the pain in the left side of her neck. Incision shows minimal if any drainage, no issues with range of motion of the cervical spine. Impression/plan: Postop day 1 status post C6-7 anterior cervical decompression, artificial disc replacement with improvement of symptoms. I will have the patient continue today with occupational and physical therapy, once she has been cleared medically she can discharge home. I did discuss with her operative site care along with activity level, and shower, she will return to the office for for follow-up in 2 weeks. Review of Systems All systems reviewed & are unremarkable except as noted in HPI & below. Physical Exam . Results & Data Results & Data Laboratory Results . Diagnostic Findings . PG Care Time/CCT Total # of Minutes Spent Total Time Spent with Patient: Total time spent is greater than 50% in coordination of care (as documented) at patient's floor/unit and/or counseling patient: Coding Level of Care Code 61959 Post Operative Follow-Up Diagnoses
[2023-02-17] MEDS ORDERED: METOPROLOL SUCC 25MG EXT REL TAB PO SCH (09:00)
[2023-02-17] MEDS ORDERED: SPIRONOLACTONE 100 MG TAB PO SCH (09:00)
--- NOTE | 2023-02-17 10:18 | Discharge Summary ---
Date of Service February 17, 2023 Discharge Data Allergies Allergy/AdvReac Type Severity Reaction Status Date / Time coconut Allergy Intermediate HIVES Verified 02/16/23 05:59 watermelon Allergy Intermediate HIVES Verified 02/16/23 05:59 No Known Drug Allergies Allergy Unknown . 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 The hospitalist service was consulted for routine medical management. Postoperative pain -Acetaminophen 1000mg IV q8h scheduled -Toradol 30mg IV q6h scheduled. Discontinued -Percocet 1-2 tab PO q4h prn moderate pain. Changed to oxycodone 5mg 1-2 tab PO q4h prn for moderate to severe pain -Dilaudid 1mg IV q2h prn severe pain -Continue bowel regimen -Continue antiemesis regimen prn WPW -EKG ordered -Continue home regimen Continue rest of management per surgeon's orders. FEN: clear liquid diet, advance as tolerated, LR@75mL/hr Code status: full code DVT ppx: SCDs Dispo: med/telemetry (2) WPW (Gnhrz-Ktkbhnkrr-Dwodk syndrome): Total Time Total Time Spent Total Time Spent (In Minutes): <30 Discharge Plan Discharge Items Patient Disposition: Home - Self-Care Reason For Visit: Cervical Disc Degeneration Discharge Diagnosis: cervical stenosis Condition on Discharge: Good Activity: Per Instructions section Lifting: No more than 10 pounds and Wait until after follow-up appointment Bathing: May shower/bathe in 3 days Exercise/Sports: Wait until after follow-up appointment Driving/Machine Use: Resume 3 days after discharge Weightbearing: Full weightbearing Non-emergency contact: Surgeon Call non-emergency contact if: your pain is worsening Follow-up/Referrals: Merced Quinteros PA-C [Primary Care Provider] - Diet: Regular Addtl Attending Provider Instructions: You admitted to [facility] for neck surgery. Please follow-up with the surgeon's office as scheduled. Addtl Special Effects Person Provider Instructions: No contact sports for 6 weeks. Pending Studies at Discharge: No Stand-Alone Forms: My [employer], Smoking Cessation Medications and DC Order Prescriptions: New oxycodone 5 mg capsule 5 mg PO Q6H PRN (Reason: pain) Qty: 30 0RF Continued ibuprofen 200 mg tablet 200 mg PO Q6H PRN (Reason: Pain) famotidine [Pepcid] 40 mg Tablet 40 mg PO HS metoprolol succinate 25 mg tablet extended release 24 hr 25 mg PO QAM spironolactone 100 mg Tablet 100 mg PO QAM albuterol sulfate [Proventil HFA] 90 mcg/actuation Hfa Aerosol Inhaler 2 puff INHALATION QID PRN (Reason: Wheezing) Patient Comments: usually for seasonal allergies Discharge Orders: Discharge Order (Routine); Ordered 02/17/23 Ordered By: Fransico Rodrigues Admission Data Admit Date/Time: 02/16/23 12:01 Attending Provider: Fransico Rodrigues Admit Provider: Fransico Rodrigues Primary Care Provider: Merced Quinteros Other Providers: Floyd Hutchins ; Ana Bhatt Resident Activity Tracking Resident Involvement: Resident Care Provided Care Provided: Adult Hospital Medicine
--- NOTE | 2023-02-17 12:16 | Electrocardiogram Report ---
Test Reason : Blood Pressure : / mmHG Vent. Rate : 068 BPM Atrial Rate : 068 BPM P-R Int : 178 ms QRS Dur : 084 ms QT Int : 388 ms P-R-T Axes : 027 040 -17 degrees QTc Int : 412 ms Normal sinus rhythm with sinus arrhythmia Low voltage QRS Nonspecific T wave abnormality Abnormal ECG When compared with ECG of 04-APR-2022 13:56, No significant change was found Confirmed by Aric Milan ([id number]) on 02/17/2023 12:16:39 PM Referred By: Fransico Rodrigues Confirmed By:Aric Milan
--- NOTE | 2023-02-19 12:58 | Discharge Summary ---
Date of Service February 16, 2023 Principal Diagnosis Same as "Discharge Diagnosis" noted below under Discharge Instructions. Discharge Data Consultations 02/16/23 14:03 Consult Hospitalist Routine Procedures Performed Operation Date: 02/16/23 07:15 Actual Procedures p C6-C7 Cervical Disc Arthroplasty(Not Applicable) - Fransico Rodrigues MD Ordered Studies 02/16/23 07:15 FL cervical 2-3V Routine PG Care Time/CCT Total # of Minutes Spent Total Time Spent with Patient: Total time spent is greater than 50% in coordination of care (as documented) at patient's floor/unit and/or counseling patient: Discharge Plan Discharge Items Patient Disposition: Home - Self-Care Reason For Visit: Cervical Disc Degeneration Discharge Diagnosis: cervical stenosis Condition on Discharge: Good Activity: Per Instructions section Lifting: No more than 10 pounds and Wait until after follow-up appointment Bathing: May shower/bathe in 3 days Exercise/Sports: Wait until after follow-up appointment Driving/Machine Use: Resume 3 days after discharge Weightbearing: Full weightbearing Non-emergency contact: Surgeon Call non-emergency contact if: your pain is worsening Follow-up/Referrals: Merced Quinteros PA-C [Primary Care Provider] - (PCP hospital discharge follow up within 1 week) Diet: Regular Addtl Attending Provider Instructions: You admitted to [facility] for neck surgery. Please follow-up with the surgeon's office as scheduled (03/04/23 3:15pm, arrive early). Call surgeon's office if any questions or new/worsened symptoms. Follow up with PCP as well. Addtl Certified Pedorthotist Provider Instructions: No contact sports for 6 weeks. Pending Studies at Discharge: No Stand-Alone Forms: My [employer], Smoking Cessation Medications and DC Order Prescriptions: New oxycodone 5 mg capsule 5 mg PO Q6H PRN (Reason: pain) Qty: 30 0RF Continued ibuprofen 200 mg tablet 200 mg PO Q6H PRN (Reason: Pain) famotidine [Pepcid] 40 mg Tablet 40 mg PO HS metoprolol succinate 25 mg tablet extended release 24 hr 25 mg PO QAM spironolactone 100 mg Tablet 100 mg PO QAM albuterol sulfate [Proventil HFA] 90 mcg/actuation Hfa Aerosol Inhaler 2 puff INHALATION QID PRN (Reason: Wheezing) Patient Comments: usually for seasonal allergies Discharge Orders: Discharge Order (Routine); Ordered 02/17/23 Ordered By: Fransico Rodrigues Admission Data Admit Date/Time: 02/16/23 12:01 Attending Provider: Fransico Rodrigues Admit Provider: Fransico Rodrigues Primary Care Provider: Merced Quinteros Other Providers: Floyd Hutchins ; Ana Bhatt Other Interventions: Discharge Summary Assessment (RN) Last Done: 02/17/23 10:15
== END 2023-02-17 11:53 | disposition home or self-care (01) ==
LOC: ASU 05:37 → 2W 05:37

== ENCOUNTER 2023-11-05 19:56 | Inpatient (IN) ==
[2023-11-05 20:47] LABS: Hematocrit (blood only) 41.6 % (37.0-47.0); Hemoglobin 14.1 g/dl (12.0-16.0); Mean Corpuscular Hemoglobin 28.5 pg (25.0-34.0); Mean Corpuscular Hgb Conc 33.9 g/dL (32.0-36.0); Mean Corpuscular Volume 84.2 fL (80.0-100.0); Mean Platelet Volume 9.4 fL (9.4-12.4); Platelet Count 268 K/uL (130-400); RDW Coefficient of Variation 13.1 % (11.5-14.5); RDW Standard Deviation 39.8 fL (36.4-46.3); Red Blood Count 4.94 M/uL (4.20-5.40); White Blood Count 9.49 K/ul (4.8-10.8)
[2023-11-05 20:57] LABS: Albumin Globulin Ratio 1.8 (0.9-2); Albumin Level 4.9 gm/dl (3.4-5.0); BUN Creatinine Ratio 17.7 (10-20); Bilirubin,Total 0.6 mg/dl (0.2-1.0); Calcium 9.6 mg/dl (8.6-10.3); Creatinine Clr Calc Pharmacy 98.8 ml/min; Est GFR (African American) 90.1 ml/min; Est GFR (Non-African American) 77.7 ml/min; Globulin 2.7 gm/dl (2.5-4.0); Potassium 3.7 mmol/L (3.5-5.1); Total Protein 7.6 gm/dl (6.0-8.3)
[2023-11-05 21:19] LABS: Partial Thromboplastin Ratio 1.1; Partial Thromboplastin Time 31 Seconds (21-31); Prothrombin Time 10.5 Seconds (9.0-12.0)
--- NOTE | 2023-11-05 22:26 | Emergency Department Note ---
History of Present Illness General Chief complaint: Stroke/CVA Symptoms Stated complaint: POSS TIA, BLURRED VISION, RIGHT ARM NUMBNESS Time Seen by Provider: 11/05/23 22:05 Source: patient, RN notes reviewed and old records reviewed (07/31/21-neurologic consultation for TIA type symptoms) Mode of arrival: ambulatory Limitations: no limitations History of Present Illness Maximum Pain Intensity: 3 This patient a 33-year-old female who has a complex medical history including WPW, possible von Willebrand's disease and TIA, comes in after an episode of right arm numbness. 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 Her left arm felt a little funny in her right I also felt off she could see but she said it just look like if you look in the sun too long. She had a similar episode in 2020 after having a heart ablation and it she had a full workup done at that time which was unremarkable and it was thought to either be a migraine or TIA she tells me is no history of migraines. She does not she can take blood thinners/aspirin because she may have mild von Willebrand's disease that they are working her up for. She feels well at present no chest pain no shortness of breath no heart racing no fever or chills. No change in vision at present. Home Medications Medication Instructions Recorded Confirmed Type metoprolol succinate 25 mg 25 mg PO QAM 04/04/22 11/06/23 History tablet,extended release 24 hr albuterol sulfate 90 mcg/actuation 2 puff inhalation QID PRN Wheezing 02/01/23 11/06/23 History aerosol inhaler (Proventil HFA) spironolactone 100 mg tablet 100 mg PO QAM 02/01/23 11/05/23 History TENS unit and electrodes combo pack #1 ea 06/10/23 11/06/23 Rx acetaminophen 325 mg tablet 975 mg PO Q8 PRN Pain 11/05/23 11/05/23 History doxycycline hyclate 50 mg capsule 50 mg PO DAILY 11/05/23 11/05/23 History famotidine 20 mg tablet 20 mg PO AMHS 11/05/23 11/06/23 History ibuprofen 800 mg tablet 800 mg PO Q8 PRN Pain 11/05/23 11/05/23 History fluticasone propionate 50 2 spray intranasal QAM 11/06/23 11/06/23 History mcg/actuation nasal spray,suspension Allergies Allergy/AdvReac Type Severity Reaction Status Date / Time coconut Allergy Intermediate HIVES Verified 11/06/23 00:03 watermelon Allergy Intermediate HIVES Verified 11/06/23 00:03 No Known Drug Allergies Allergy Unknown . Verified 11/06/23 00:03 adhesive Allergy "if left Verified 11/06/23 00:03 on too long, tape and bandaids take my skin off" Past Med/Surg History Medical History Blood type O- Pt states that her blood type is O negative, partial D positive and that routine type and screen will incorrectly flag this as O positive. Blood card is scanned to the chart. History of anxiety Hx of blood clots "250mL blood clot in abdomen following the partial oophorectomy, instituted another surgery to go back in and clean it up" Cervical radiculopathy Cervical facet joint syndrome ROM>cannot turn head the whole way to her left, turning to right is fine, can look up and down Brain TIA 07/2021 Encounter for pre-operative examination History of kidney stones Polyp, stomach "Still have this, never did anything with it" Stomach erosion hx GERD (gastroesophageal reflux disease) controlled, stable per pt WPW (Knfjd-Ozkaqumjl-Hjslr syndrome) follows with [facility] and [facility] cardio History of bronchitis 11/2022, last albuterol inhaler use 2 months ago Hidradenitis suppurativa Surgical History Hx of laparoscopy to remove blood clot from abdomen Hx of unilateral oophorectomy "part of ovary removed" History of cardiac radiofrequency ablation (RFA) x3; sent to [facility]>2019, attempted twice "within short period of time, did not work"; [facility] [place] Cardiac Abl[facility]>"thought it had worked, but when re-checked in 09/2021, my heart rate was still irregular, and has not had it re-checked since then." History of electrophysiologic study checking for tarsal tunnel in her feet History of adenoidectomy History of surgery removal of HS growth from axilla History of hernia repair x3 History of excision of lesion breast>benign History of esophagogastroduodenoscopy (EGD) Family History Grandfather (Maternal) Esophageal cancer Other No family history of adverse response to anesthesia Social History Smoking Status: Current every day smoker Cigarettes Per Day: 5; Second Hand Exposure: No; Do You Dip or Chew Tobacco: No; Hx Alcohol Use: No Hx Substance Use: No Preferred Language: Israeli Communication Ability: Effective Visual Impairment: No Limitations Hearing Ability: Normal Pattern Duplicator Required: No Beliefs That Will Affect Care: None marital status: Single Current Living Situation: Spouse Current Living Situation Comment: with fiance current occupational status: employed current occupation: works with special needs adults Feels Safe at Home: Yes Assistive Devices: Glasses Review of Systems A total of 10 systems reviewed and were otherwise negative Physical Exam Vital Signs Vital Signs - 24 hr 11/05/23 20:05 11/05/23 23:02 11/06/23 00:00 Temperature 36.7 C Temperature Source Temporal Artery Scan Pulse Rate 92 H 55 L Pulse Rate [Apical] Pulse Rhythm [Apical] Pulse Strength [Apical] Respiratory Rate 17 Respiratory Effort / Characteristics Respiratory Depth Respiratory Pattern Blood Pressure 167/86 H Blood Pressure [Right Arm] Blood Pressure Mean 113 Blood Pressure Mean [Right Arm] Blood Pressure Position [Right Arm] Pulse Oximetry 96 98 Oxygen Delivery Method Room Air Sepsis Recent Fever Within 48 Hours No Sepsis New/Unexplained Change in Mental Status No Sepsis Action Taken by Nursing No Action Required 11/06/23 00:00 Temperature Temperature Source Pulse Rate Pulse Rate [Apical] 58 L Pulse Rhythm [Apical] Regular Pulse Strength [Apical] Normal Respiratory Rate 17 Respiratory Effort / Characteristics Non-Labored Spontaneous Respiratory Depth Normal Respiratory Pattern Regular Blood Pressure Blood Pressure [Right Arm] 126/46 L Blood Pressure Mean Blood Pressure Mean [Right Arm] 72 Blood Pressure Position [Right Arm] Lying Pulse Oximetry 98 Oxygen Delivery Method Room Air Sepsis Recent Fever Within 48 Hours Sepsis New/Unexplained Change in Mental Status Sepsis Action Taken by Nursing General: Well developed well nourished [id number] mildly anxious young female who appears in no acute distress, breathing comfortably on room air. Normal speech HEENT: Normal cephalic atraumatic. Pupils are equal round and reactive to light. Extraocular movements are intact. Oropharynx is pink with moist mucous membranes. No swelling of the mouth lips or tongue. Neck: Supple with a midline trachea. No meningeal signs or stiffness, no JVD or bruits. No Stridor. Chest: Clear to auscultation bilaterally. No wheezes or rhonchi. No increased work of breathing. Heart: Regular rate and rhythm without murmurs or gallops. Abdomen: Soft nontender, nondistended without rebound guarding or rigidity. Extremities: No cyanosis clubbing or edema. No calf tenderness or assymetry Spine/Back. Non tender to palpation. No CVA tenderness Skin: Good turgor without rashes. Neurologic exam: Cranial nerves two through 12 are intact. Motor and sensation are intact and symmetrical throughout. Normal gait. Negative Romberg. No tremor. No pronator drift. Course Administered Medications Discontinued Medications Ioversol (Optiray 320 125ml) 115 ml IV ONCE ONE Stop: 11/05/23 23:29 Last Admin: 11/05/23 23:28 Dose: 115 ml Documented By: VICKY Medical Decision Making Differential Diagnosis TIA, intracranial process, CVA, arrhythmia, anxiety, migraine, electrolyte or metabolic abnormality Medical Records Attestation: I reviewed the patient's medical records. Home Medications Current Medication List: was personally reviewed by me Laboratory Data Attestation: I reviewed the patient's lab results. 11/05/23 20:22 11/05/23 20:22 Lab Results 11/05/23 Range/Units 20:22 WBC 9.49 (4.8-10.8) K/ul RBC 4.94 (4.20-5.40) M/uL Hgb 14.1 (12.0-16.0) g/dl Hct 41.6 (37.0-47.0) % MCV 84.2 (80.0-100.0) fL MCH 28.5 (25.0-34.0) pg MCHC 33.9 (32.0-36.0) g/dL RDW Std Deviation 39.8 (36.4-46.3) fL RDW Coeff of Dana 13.1 (11.5-14.5) % Plt Count 268 (130-400) K/uL MPV 9.4 (9.4-12.4) fL PT 10.5 (9.0-12.0) Seconds INR 1.0 (0.9-1.1) APTT 31 (21-31) Seconds PTT Ratio 1.1 Sodium 137 (136-145) mmol/L Potassium 3.7 (3.5-5.1) mmol/L Chloride 106 (98-107) mmol/L Carbon Dioxide 23 (21-32) mmol/L Anion Gap 8 (3-11) BUN 17 (6-23) mg/dl Creatinine 0.96 (0.6-1.2) mg/dl Est Cr Clr Drug Dosing 98.8 ml/min Est GFR ( Amer) 90.1 ml/min Est GFR (Non-Af Amer) 77.7 ml/min BUN/Creatinine Ratio 17.7 (10-20) Glucose 130 H (70-99(Fasting)) mg/dl Calcium 9.6 (8.6-10.3) mg/dl Magnesium 2.0 (1.7-2.4) mg/dl Total Bilirubin 0.6 (0.2-1.0) mg/dl AST 16 (13-39) U/L ALT 11 (7-52) U/L Alkaline Phosphatase 65 (34-104) U/L Total Protein 7.6 (6.0-8.3) gm/dl Albumin 4.9 (3.4-5.0) gm/dl Globulin 2.7 (2.5-4.0) gm/dl Albumin/Globulin Ratio 1.8 (0.9-2) Imaging Data Attestation: I personally reviewed and interpreted this imaging study as follows: My Impression: Head CT-no hemorrhage or mass effect seen Radiologist's Impression: Head CT 11/05/23 22:21 Exam(s): CT HEAD Without Contrast EXAM: CT Head Without Intravenous Contrast CLINICAL HISTORY: Reason for exam: neuro deficit, acute stroke suspected. TECHNIQUE: Axial computed tomography images of the head/brain without intravenous contrast. CTDI is 37.61 mGy and DLP is 624.41 mGy-cm. Automated exposure control was utilized for the study. A dose lowering technique was utilized adhering to the principles of ALARA. COMPARISON: Comparison made to prior head CT from April 04, 2022. FINDINGS: Brain: Unremarkable. No hemorrhage. No significant white matter disease. No edema. Ventricles: Unremarkable. No ventriculomegaly. Bones/joints: Unremarkable. No acute fracture. Soft tissues: Unremarkable. Sinuses: Unremarkable as visualized. No acute sinusitis. Mastoid air cells: Unremarkable as visualized. No mastoid effusion. IMPRESSION: No evidence of acute intercranial pathology. Electronically signed by: Jada Mayen MD 11/06/23 00:34 AM Head CTA 11/05/23 22:21 CR Exam(s): CTA HEAD With Contrast IV Amt: 115 cc's of optiray 320 EXAM: CT Angiography Head With Intravenous Contrast CLINICAL HISTORY: Reason for exam: neuro deficit, acute stroke suspected. TECHNIQUE: Axial computed tomographic angiography images of the head with intravenous contrast. CTDI is 37.61 mGy and DLP is 624.41 mGy-cm. Automated exposure control was utilized for the study. A dose lowering technique was utilized adhering to the principles of ALARA. MIP reconstructed images were created and reviewed. CONTRAST: Patient received 115 cc's of optiray 320 of IV contrast COMPARISON: No relevant prior studies available. FINDINGS: There is an abrupt cut off of the medial left transverse venous sinus. Right internal carotid artery: No acute findings. Intracranial segment is patent with no significant stenosis. No aneurysm. Right anterior cerebral artery: Unremarkable. No occlusion or significant stenosis. No aneurysm. Right middle cerebral artery: Unremarkable. No occlusion or significant stenosis. No aneurysm. Right posterior cerebral artery: Unremarkable. No occlusion or significant stenosis. No aneurysm. Right vertebral artery: Unremarkable as visualized. Left internal carotid artery: No acute findings. Intracranial segment is patent with no significant stenosis. No aneurysm. Left anterior cerebral artery: Unremarkable. No occlusion or significant stenosis. No aneurysm. Left middle cerebral artery: Unremarkable. No occlusion or significant stenosis. No aneurysm. Left posterior cerebral artery: Unremarkable. No occlusion or significant stenosis. No aneurysm. Left vertebral artery: Unremarkable as visualized. Basilar artery: Unremarkable. No occlusion or significant stenosis. No aneurysm. IMPRESSION: Negative CT angiogram of the head. There is an abrupt cut off of the medial left transverse dural venous sinus concerning for possible partially occlusive thrombus. Communications: Verify Receipt Electronically signed by: Jada Mayen MD 11/06/23 00:28 AM Neck CTA 11/05/23 22:21 Exam(s): CTA NECK With Contrast IV Amt: 115 cc's optriay 320 EXAM: CT Angiography Neck With Intravenous Contrast CLINICAL HISTORY: Reason for exam: neuro deficit, acute stroke suspected. TECHNIQUE: Routine carotid CT angiography protocol was performed with intravenous contrast. NASCET criteria using the distal ICAs for comparison were used for evaluation of stenoses. CTDI is 27.26 mGy and DLP is 488.25 mGy-cm. Automated exposure control was utilized for the study. A dose lowering technique was utilized adhering to the principles of ALARA. MIP reconstructed images were created and reviewed. CONTRAST: Patient received 115 cc's optriay 320 of IV contrast COMPARISON: None. FINDINGS: VASCULATURE: Right common carotid artery: Unremarkable. No occlusion or significant stenosis. No dissection. Right internal carotid artery: Unremarkable. Extracranial segment is patent with no occlusion or significant stenosis. No dissection. Right external carotid artery: Unremarkable. No occlusion. Right vertebral artery: Unremarkable. No occlusion or significant stenosis. No dissection. Left common carotid artery: Unremarkable. No occlusion or significant stenosis. No dissection. Left internal carotid artery: Unremarkable. Extracranial segment is patent with no occlusion or significant stenosis. No dissection. Left external carotid artery: Unremarkable. No occlusion. Left vertebral artery: Unremarkable. No occlusion or significant stenosis. No dissection. NECK: Bones/joints: Intervertebral disc replacement at C6-7. No acute fracture. Soft tissues: Prominent cervical lymph nodes. Lung apices: Clear. CAROTID STENOSIS REFERENCE USING NASCET CRITERIA: % ICA stenosis = (1 - narrowest ICA diameter/diameter of distal cervical ICA) x 100. Mild - <50% stenosis. Moderate - 50-69% stenosis. Severe - 70-94% stenosis. Near occlusion - 95-99% stenosis. Occluded - 100% stenosis. IMPRESSION: Negative CTA neck. Electronically signed by: Jada Mayen MD 11/06/23 00:16 AM ECG Data Attestation: I personally reviewed and interpreted this ECG as follows: Indication: + weakness Rate (beats per minute): 82 Rhythm: + normal sinus ECG Intervals/blocks: + Normal QRS, + Normal QT and + Normal [place] ECG [place]: + Normal ECG ST segments: + Nonspecific ST abnormalities ECG Findings: no PACs or no PVCs Comparison ECG Date: from (02/16/21) Change: no significant change MDM Narrative This patient comes in as scribed above. She was placed on a playground monitor. She has a normal neurologic exam at present but had a an episode where she may have had a TIA. Migraine would certainly be in the differential as well. She does have a complex medical history with multiple medical problems including WPW. She also tells me she is not allowed to be on aspirin because she may have von Willebrand's disease that they are working her up for. In light of this I did do a full neurologic type workup. She is no fever white count discussed infection she is no significant anemia. I did order CAT scan of the head as well as angiography of the head and neck. She was reassessed frequently. She is not as she had a tubal ligation a couple weeks ago. The CT angiography of her head and neck were unremarkable with the exception of "There is an abrupt cut off of the medial left transverse dural venous sinus concerning for possible partially occlusive thrombus." Patient has no headache and is completely asymptomatic and I do not think this likely explains the symptoms she had tonight and clinically I do not think she likely has a dural venous sinus thrombosis. In light of this, I did discuss the case with Dr. Dayanara Dodge, who is the stroke neurologist at [facility], she agrees but did recommend doing an MRV. She did not recommend anticoagulating the patient and less there was true findings on the MRV. She also recommended we discussed this with hematology given the patient's possible von Willebrand's. I relayed this information to Dr. Gage, who is admitting the patient we will order the MRV. I checked on the patient again and she is asymptomatic and explained to her possible findings as well. She will be admitted/observed for further neurologic workup and treatment and evaluation Continuous playground monitor: Orders placed in EMR for continuous playground monitor call upon my evaluation, she was noted to be in normal sinus rhythm with a rate of 60 Impression & Plan Transient neurologic deficit, WPW (Xzorh-Yzktxlzzi-Xhbzl syndrome), History of bilateral tubal ligation, Not currently Discharge Plan Visit Data Chief Complaint: Stroke/CVA Symptoms Stated Complaint: POSS TIA, BLURRED VISION, RIGHT ARM NUMBNESS ED Provider: Anthony Paul Discharge Problem: Transient neurologic deficit, WPW (Bklqk-Bxzhvxkwv-Nrfev syndrome), History of bilateral tubal ligation, Not currently Forms Stand Alone Forms: My [facility] Prescriptions Prescriptions: No Action (DME) TENS unit and electrodes Combo Pack See Rx Instructions .Route Qty: 1 0RF Rx Instructions: As directed metoprolol succinate 25 mg tablet extended release 24 hr 25 mg PO QAM spironolactone 100 mg Tablet 100 mg PO QAM albuterol sulfate [Proventil HFA] 90 mcg/actuation Hfa Aerosol Inhaler 2 puff INHALATION QID PRN (Reason: Wheezing) Patient Comments: usually for seasonal allergies ibuprofen 800 mg tablet 800 mg PO Q8 PRN (Reason: Pain) Rx Instructions: alternate with tylenol doxycycline hyclate 50 mg capsule 50 mg PO DAILY acetaminophen 325 mg tablet 975 mg PO Q8 PRN (Reason: Pain) Rx Instructions: alternate with ibuprofen famotidine 20 mg tablet 20 mg PO AMHS fluticasone propionate 50 mcg/actuation spray,suspension 2 spray INTRANASAL QAM Referrals Referrals: Merced Quinteros PA-C [Primary Care Provider] -
[2023-11-05] MEDS: OPTIRAY 320 125ml IV ONE (23:28)
--- NOTE | 2023-11-06 00:17 | CT Scan Report ---
Exam(s): CTA NECK With Contrast IV Amt: 115 cc's optriay 320 EXAM: CT Angiography Neck With Intravenous Contrast CLINICAL HISTORY: Reason for exam: neuro deficit, acute stroke suspected. TECHNIQUE: Routine carotid CT angiography protocol was performed with intravenous contrast. NASCET criteria using the distal ICAs for comparison were used for evaluation of stenoses. CTDI is 27.26 mGy and DLP is 488.25 mGy-cm. Automated exposure control was utilized for the study. A dose lowering technique was utilized adhering to the principles of ALARA. MIP reconstructed images were created and reviewed. CONTRAST: Patient received 115 cc's optriay 320 of IV contrast COMPARISON: None. FINDINGS: VASCULATURE: Right common carotid artery: Unremarkable. No occlusion or significant stenosis. No dissection. Right internal carotid artery: Unremarkable. Extracranial segment is patent with no occlusion or significant stenosis. No dissection. Right external carotid artery: Unremarkable. No occlusion. Right vertebral artery: Unremarkable. No occlusion or significant stenosis. No dissection. Left common carotid artery: Unremarkable. No occlusion or significant stenosis. No dissection. Left internal carotid artery: Unremarkable. Extracranial segment is patent with no occlusion or significant stenosis. No dissection. Left external carotid artery: Unremarkable. No occlusion. Left vertebral artery: Unremarkable. No occlusion or significant stenosis. No dissection. NECK: Bones/joints: Intervertebral disc replacement at C6-7. No acute fracture. Soft tissues: Prominent cervical lymph nodes. Lung apices: Clear. CAROTID STENOSIS REFERENCE USING NASCET CRITERIA: % ICA stenosis = (1 - narrowest ICA diameter/diameter of distal cervical ICA) x 100. Mild - <50% stenosis. Moderate - 50-69% stenosis. Severe - 70-94% stenosis. Near occlusion - 95-99% stenosis. Occluded - 100% stenosis. IMPRESSION: Negative CTA neck. Electronically signed by: Jada Mayen MD 11/06/23 00:16 AM
--- NOTE | 2023-11-06 00:30 | CT Scan Report ---
Exam(s): CTA HEAD With Contrast IV Amt: 115 cc's of optiray 320 EXAM: CT Angiography Head With Intravenous Contrast CLINICAL HISTORY: Reason for exam: neuro deficit, acute stroke suspected. TECHNIQUE: Axial computed tomographic angiography images of the head with intravenous contrast. CTDI is 37.61 mGy and DLP is 624.41 mGy-cm. Automated exposure control was utilized for the study. A dose lowering technique was utilized adhering to the principles of ALARA. MIP reconstructed images were created and reviewed. CONTRAST: Patient received 115 cc's of optiray 320 of IV contrast COMPARISON: No relevant prior studies available. FINDINGS: There is an abrupt cut off of the medial left transverse venous sinus. Right internal carotid artery: No acute findings. Intracranial segment is patent with no significant stenosis. No aneurysm. Right anterior cerebral artery: Unremarkable. No occlusion or significant stenosis. No aneurysm. Right middle cerebral artery: Unremarkable. No occlusion or significant stenosis. No aneurysm. Right posterior cerebral artery: Unremarkable. No occlusion or significant stenosis. No aneurysm. Right vertebral artery: Unremarkable as visualized. Left internal carotid artery: No acute findings. Intracranial segment is patent with no significant stenosis. No aneurysm. Left anterior cerebral artery: Unremarkable. No occlusion or significant stenosis. No aneurysm. Left middle cerebral artery: Unremarkable. No occlusion or significant stenosis. No aneurysm. Left posterior cerebral artery: Unremarkable. No occlusion or significant stenosis. No aneurysm. Left vertebral artery: Unremarkable as visualized. Basilar artery: Unremarkable. No occlusion or significant stenosis. No aneurysm. IMPRESSION: Negative CT angiogram of the head. There is an abrupt cut off of the medial left transverse dural venous sinus concerning for possible partially occlusive thrombus. Communications: Verify Receipt Electronically signed by: Jada Mayen MD 11/06/23 00:28 AM
--- NOTE | 2023-11-06 00:35 | CT Scan Report ---
Exam(s): CT HEAD Without Contrast EXAM: CT Head Without Intravenous Contrast CLINICAL HISTORY: Reason for exam: neuro deficit, acute stroke suspected. TECHNIQUE: Axial computed tomography images of the head/brain without intravenous contrast. CTDI is 37.61 mGy and DLP is 624.41 mGy-cm. Automated exposure control was utilized for the study. A dose lowering technique was utilized adhering to the principles of ALARA. COMPARISON: Comparison made to prior head CT from April 04, 2022. FINDINGS: Brain: Unremarkable. No hemorrhage. No significant white matter disease. No edema. Ventricles: Unremarkable. No ventriculomegaly. Bones/joints: Unremarkable. No acute fracture. Soft tissues: Unremarkable. Sinuses: Unremarkable as visualized. No acute sinusitis. Mastoid air cells: Unremarkable as visualized. No mastoid effusion. IMPRESSION: No evidence of acute intercranial pathology. Electronically signed by: Jada Mayen MD 11/06/23 00:34 AM
--- NOTE | 2023-11-06 01:40 | History & Physical Report ---
Date of Service November 06, 2023 Assessment & Plan (1) Stroke-like symptoms: Plan: 33-year-old female with past medical history significant for Chaudhari Parkinson's White syndrome s/p ablation, brain TIA, morbid obesity, GERD, constipation, dysfunctional uterine bleeding, hidradenitis, history of traumatic dislocation of cervical spine, cervical adenopathy, bleeding disorder, Rh- status during , tobacco use disorder, GERD anxiety disorder, presents with strokelike symptoms. Patient states around 4:30 PM she felt numbness in the right face, right arm and right lower extremity and also blurred vision in the right eye which lasted for 15 to 20 minutes and subsided. After that she felt tired and fatigued for some time. Currently she is back to normal. Denies any headache currently. No double vision. No runny nose or sore throat. No cough. No d ifficulty swallowing. No fevers. No chest pain. No shortness of breath. No nausea. No abdominal pain. Normal bowel and bladder movements. Currently resting comfortably and hemodynamically stable. In July 2021 she presented to [facility] with left arm weakness and left temporal headache, it happened postcardiac ablation at [facility].At that time workup was unremarkable. There is question of von Willebrand disease and the patient states she was not started on aspirin because of that. Neurology thought the possibility of migraine with a transient migrainous component at that time. Strokelike symptoms Right-sided numbness with right eye blurred visions which lasted for [address] head okay CTA neck okay CTA head question of abrupt cut off of the medial left transverse dural venous sinus concerning for possible partially occlusive thrombus. ER discussed with [place] [facility] and was recommended MRV. And if MRV shows thrombus then advised to discuss with heme-onc about anticoagulation because of question of von Willebrand's disease Will do full stroke workup with MRI head, MRV head, echo and telemetry and neurochecks Speech evaluation and PT OT Neuroconsult in a.m. History of Xatcx-Imswqpvkl-Xjjrx syndrome s/p ablation History of recurrent SVT On metoprolol Follows with cardiology Morbid obesity Needs counseling Hidradenitis On spironolactone Questionable bleeding disorder As per heme-onc notes:With previous normal PT PTT, Platelet count, normal factor VIII level, ristocetin cofactor level and von Willebrand factor level as well as several surgeries without any bleeding complications, Don't t see any obvious bleeding disorder. Will recheck with heme-onc if anticoagulation is needed. Patient also some discrepancy about ABO typing. As per heme-onc notes:If the patient requires transfusions in the future, ABO/Rh compatible units lacking the D antigen, which are TRACEE-AHG compatible,should be provided. Units from 15% of the donor population are expected to be compatible. And to please call the Blood Bank at [phone] with any questions. DVT prophylaxis SCDs for now History of Present Illness Chief Complaint: Strokelike symptoms Primary Care Provider: Merced Quinteros PA-C 33-year-old female with past medical history significant for Chaudhari Parkinson's White syndrome s/p ablation, brain TIA, morbid obesity, GERD, constipation, dysfunctional uterine bleeding, hidradenitis, history of traumatic dislocation of cervical spine, cervical adenopathy, bleeding disorder, Rh- status during , tobacco use disorder, GERD anxiety disorder, presents with strokelike symptoms. Patient states around 4:30 PM she felt numbness in the right face, right arm and right lower extremity and also blurred vision in the right eye which lasted for 15 to 20 minutes and subsided. After that she felt tired and fatigued for some time. Currently she is back to normal. Denies any headache currently. No double vision. No runny nose or sore throat. No cough. No d ifficulty swallowing. No fevers. No chest pain. No shortness of breath. No nausea. No abdominal pain. Normal bowel and bladder movements. Currently resting comfortably and hemodynamically stable. In July 2021 she presented to [facility] with left arm weakness and left temporal headache, it happened postcardiac ablation at [facility].At that time workup was unremarkable. There is question of von Willebrand disease and the patient states she was not started on aspirin because of that. Neurology thought the possibility of migraine with a transient migrainous component at that time. Past med history. As mentioned above. Past surgical history. Heart dysrhythmia ablation. Excision of left breast mass. Dental surgery. EGD. EGD with biopsy. Incisional hernia repair laparoscopic. Diagnostic laparoscopy. Laparoscopic oophorectomy. Ovarian cystectomy. Adenoidectomy. Umbilical hernia repair. Social history. Smokes 0.3 packs/day for 18 years. No alcohol use currently. No drug use. Family history. Mother had diabetes. Maternal great aunt had breast cancer Allergies Allergy/AdvReac Type Severity Reaction Status Date / Time coconut Allergy Intermediate HIVES Verified 11/06/23 00:03 watermelon Allergy Intermediate HIVES Verified 11/06/23 00:03 No Known Drug Allergies Allergy Unknown . Verified 11/06/23 00:03 adhesive Allergy "if left Verified 11/06/23 00:03 on too long, tape and bandaids take my skin off" Home Medications Medication Instructions Recorded Confirmed Type metoprolol succinate 25 mg 25 mg PO QAM 04/04/22 11/06/23 History tablet,extended release 24 hr albuterol sulfate 90 mcg/actuation 2 puff inhalation QID PRN Wheezing 02/01/23 11/06/23 History aerosol inhaler (Proventil HFA) spironolactone 100 mg tablet 100 mg PO QAM 02/01/23 11/05/23 History TENS unit and electrodes combo pack #1 ea 06/10/23 11/06/23 Rx acetaminophen 325 mg tablet 975 mg PO Q8 PRN Pain 11/05/23 11/05/23 History doxycycline hyclate 50 mg capsule 50 mg PO DAILY 11/05/23 11/05/23 History famotidine 20 mg tablet 20 mg PO AMHS 11/05/23 11/06/23 History ibuprofen 800 mg tablet 800 mg PO Q8 PRN Pain 11/05/23 11/05/23 History fluticasone propionate 50 2 spray intranasal QAM 11/06/23 11/06/23 History mcg/actuation nasal spray,suspension Past Med/Surg History Medical History Blood type O- Pt states that her blood type is O negative, partial D positive and that routine type and screen will incorrectly flag this as O positive. Blood card is scanned to the chart. History of anxiety Hx of blood clots "250mL blood clot in abdomen following the partial oophorectomy, instituted another surgery to go back in and clean it up" Cervical radiculopathy Cervical facet joint syndrome ROM>cannot turn head the whole way to her left, turning to right is fine, can look up and down Brain TIA 07/2021 Encounter for pre-operative examination History of kidney stones Polyp, stomach "Still have this, never did anything with it" Stomach erosion hx GERD (gastroesophageal reflux disease) controlled, stable per pt WPW (Kyxei-Doihcpxpf-Tvlnl syndrome) follows with [facility] and [facility] cardio History of bronchitis 11/2022, last albuterol inhaler use 2 months ago Hidradenitis suppurativa Surgical History Hx of laparoscopy to remove blood clot from abdomen Hx of unilateral oophorectomy "part of ovary removed" History of cardiac radiofrequency ablation (RFA) x3; sent to [facility]>2019, attempted twice "within short period of time, did not work"; 07/2021, [facility] in [place], attempted Cardiac Ablation>"thought it had worked, but when re-checked in 09/2021, my heart rate was still irregular, and has not had it re-checked since then." History of electrophysiologic study checking for tarsal tunnel in her feet History of adenoidectomy History of surgery removal of HS growth from axilla History of hernia repair x3 History of excision of lesion breast>benign History of esophagogastroduodenoscopy (EGD) Family History Grandfather (Maternal) Esophageal cancer Other No family history of adverse response to anesthesia Social History Smoking Status: Current every day smoker Tobacco Type: Cigarettes Cigarettes Per Day: 5; Second Hand Exposure: No; Do You Dip or Chew Tobacco: No; Hx Alcohol Use: Yes Alcohol type: hard liquor Hx Substance Use: No Preferred Language: Italian Communication Ability: Effective Visual Impairment: No Limitations Hearing Ability: Normal Dress Operator Required: No Beliefs That Will Affect Care: None marital status: Single Current Living Situation: Family Current Living Situation Comment: lives with son and fiance current occupational status: employed current occupation: works with special needs adults Other Information That Helps Us Care for You: No Feels Safe at Home: Yes Safety Concerns: Feels Safe At This Time Assistive Devices: Contacts Review of Systems Review of Systems: All systems reviewed & are unremarkable except as noted in HPI & below Physical Exam Physical Exam: General- Not in distress Head- atraumatic Eyes- PERRL, EOMI. ENT- oropharynx clear Neck- supple, no JVD, no carotid bruit. Lungs- clear to auscultation, no wheezing or crackles. Heart- regular rate and rhythm; no murmur, no gallop. Abdomen- normal bowel sounds, soft, nontender, no distension. Extremities- no pretibial edema, no erythema seen. Neuro- alert, oriented PERRL, EOMI; no facial palsy; no dysarthria; motor 5/5 bilaterally; can raise and hold lower extremity, co ordination of movements normal.No pronator drift, sensations intact, position sense intact Skin- warm & dry Results & Data Results & Data Vital Signs (Past 12 Hours) Vital Signs Temp Pulse Pulse Resp BP BP Pulse Ox 11/06/23 00:00 58 L 17 126/46 L 98 11/06/23 00:00 98 11/05/23 23:02 55 L 11/05/23 20:05 36.7 C 92 H 17 167/86 H 96 O2 Del Method 11/06/23 00:00 Room Air 11/06/23 00:00 Room Air 11/05/23 23:02 11/05/23 20:05 Diagnostic Findings Laboratory Results WBC 9.49 K/ul (4.8-10.8) 11/05/23: RBC 4.94 M/uL (4.20-5.40) 11/05/23 20:22 Hgb 14.1 g/dl (12.0-16.0) 11/05/23: Hct 41.6 % (37.0-47.0) 11/05/23: MCV 84.2 fL (80.0-100.0) 11/05/23 20:22 MCH 28.5 pg (25.0-34.0) 11/05/23: MCHC 33.9 g/dL (32.0-36.0) 11/05/23: RDW Std Deviation 39.8 fL (36.4-46.3) 11/05/23 20:22 RDW Coeff of Dana 13.1 % (11.5-14.5) 11/05/23: Plt Count 268 K/uL (130-400) 11/05/23 20:22 MPV 9.4 fL (9.4-12.4) 11/05/23 20: PT 10.5 Seconds (9.0-12.0) 11/05/23 20: INR 1.0 (0.9-1.1) 11/05/23 20: APTT 31 Seconds (21-31) 11/05/23 20: PTT Ratio 1.1 11/05/23 20: Sodium 137 mmol/L (136-145) 11/05/23 20:22 Potassium 3.7 mmol/L (3.5-5.1) 11/05/23 20: Chloride 106 mmol/L (98-107) 11/05/23 20: Carbon Dioxide 23 mmol/L (21-32) 11/05/23 20: Anion Gap 8 (3-11) 11/05/23 20:22 BUN 17 mg/dl (6-23) 11/05/23 20: Creatinine 0.96 mg/dl (0.6-1.2) 11/05/23: Est Cr Clr Drug Dosing 98.8 ml/min 11/05/23 20:22 Est GFR ( Amer) 90.1 ml/min 11/05/23 20: Est GFR (Non-Af Amer) 77.7 ml/min 11/05/23 20: BUN/Creatinine Ratio 17.7 (10-20) 11/05/23 20:22 Glucose 130 mg/dl (70-99(Fasting)) H 11/05/23 20: Calcium 9.6 mg/dl (8.6-10.3) 11/05/23 20: Magnesium 2.0 mg/dl (1.7-2.4) 11/05/23 20: Total Bilirubin 0.6 mg/dl (0.2-1.0) 11/05/23 20: AST 16 U/L (13-39) 11/05/23 20: ALT 11 U/L (7-52) 11/05/23 20:22 Alkaline Phosphatase 65 U/L (34-104) 11/05/23 20:22 Total Protein 7.6 gm/dl (6.0-8.3) 11/05/23 20: Albumin 4.9 gm/dl (3.4-5.0) 11/05/23 20:22 Globulin 2.7 gm/dl (2.5-4.0) 11/05/23 20:22 Albumin/Globulin Ratio 1.8 (0.9-2) 11/05/23 20:[address] 11/05/23 22:21 Exam(s): CT HEAD Without Contrast EXAM: CT Head Without Intravenous Contrast CLINICAL HISTORY: Reason for exam: neuro deficit, acute stroke suspected. TECHNIQUE: Axial computed tomography images of the head/brain without intravenous contrast. CTDI is 37.61 mGy and DLP is 624.41 mGy-cm. Automated exposure control was utilized for the study. A dose lowering technique was utilized adhering to the principles of ALARA. COMPARISON: Comparison made to prior head CT from April 04, 2022. FINDINGS: Brain: Unremarkable. No hemorrhage. No significant white matter disease. No edema. Ventricles: Unremarkable. No ventriculomegaly. Bones/joints: Unremarkable. No acute fracture. Soft tissues: Unremarkable. Sinuses: Unremarkable as visualized. No acute sinusitis. Mastoid air cells: Unremarkable as visualized. No mastoid effusion. IMPRESSION: No evidence of acute intercranial pathology. Electronically signed by: Jada Mayen MD 11/06/23 00:34 AM Head CTA 11/05/23 22:21 CR Exam(s): CTA HEAD With Contrast IV Amt: 115 cc's of optiray 320 EXAM: CT Angiography Head With Intravenous Contrast CLINICAL HISTORY: Reason for exam: neuro deficit, acute stroke suspected. TECHNIQUE: Axial computed tomographic angiography images of the head with intravenous contrast. CTDI is 37.61 mGy and DLP is 624.41 mGy-cm. Automated exposure control was utilized for the study. A dose lowering technique was utilized adhering to the principles of ALARA. MIP reconstructed images were created and reviewed. CONTRAST: Patient received 115 cc's of optiray 320 of IV contrast COMPARISON: No relevant prior studies available. FINDINGS: There is an abrupt cut off of the medial left transverse venous sinus. Right internal carotid artery: No acute findings. Intracranial segment is patent with no significant stenosis. No aneurysm. Right anterior cerebral artery: Unremarkable. No occlusion or significant stenosis. No aneurysm. Right middle cerebral artery: Unremarkable. No occlusion or significant stenosis. No aneurysm. Right posterior cerebral artery: Unremarkable. No occlusion or significant stenosis. No aneurysm. Right vertebral artery: Unremarkable as visualized. Left internal carotid artery: No acute findings. Intracranial segment is patent with no significant stenosis. No aneurysm. Left anterior cerebral artery: Unremarkable. No occlusion or significant stenosis. No aneurysm. Left middle cerebral artery: Unremarkable. No occlusion or significant stenosis. No aneurysm. Left posterior cerebral artery: Unremarkable. No occlusion or significant stenosis. No aneurysm. Left vertebral artery: Unremarkable as visualized. Basilar artery: Unremarkable. No occlusion or significant stenosis. No aneurysm. IMPRESSION: Negative CT angiogram of the head. There is an abrupt cut off of the medial left transverse dural venous sinus concerning for possible partially occlusive thrombus. Communications: Verify Receipt Electronically signed by: Jada Mayen MD 11/06/23 00:28 AM Neck CTA 11/05/23 22:21 Exam(s): CTA NECK With Contrast IV Amt: 115 cc's optriay 320 EXAM: CT Angiography Neck With Intravenous Contrast CLINICAL HISTORY: Reason for exam: neuro deficit, acute stroke suspected. TECHNIQUE: Routine carotid CT angiography protocol was performed with intravenous contrast. NASCET criteria using the distal ICAs for comparison were used for evaluation of stenoses. CTDI is 27.26 mGy and DLP is 488.25 mGy-cm. Automated exposure control was utilized for the study. A dose lowering technique was utilized adhering to the principles of ALARA. MIP reconstructed images were created and reviewed. CONTRAST: Patient received 115 cc's optriay 320 of IV contrast COMPARISON: None. FINDINGS: VASCULATURE: Right common carotid artery: Unremarkable. No occlusion or significant stenosis. No dissection. Right internal carotid artery: Unremarkable. Extracranial segment is patent with no occlusion or significant stenosis. No dissection. Right external carotid artery: Unremarkable. No occlusion. Right vertebral artery: Unremarkable. No occlusion or significant stenosis. No dissection. Left common carotid artery: Unremarkable. No occlusion or significant stenosis. No dissection. Left internal carotid artery: Unremarkable. Extracranial segment is patent with no occlusion or significant stenosis. No dissection. Left external carotid artery: Unremarkable. No occlusion. Left vertebral artery: Unremarkable. No occlusion or significant stenosis. No dissection. NECK: Bones/joints: Intervertebral disc replacement at C6-7. No acute fracture. Soft tissues: Prominent cervical lymph nodes. Lung apices: Clear. CAROTID STENOSIS REFERENCE USING NASCET CRITERIA: % ICA stenosis = (1 - narrowest ICA diameter/diameter of distal cervical ICA) x 100. Mild - <50% stenosis. Moderate - 50-69% stenosis. Severe - 70-94% stenosis. Near occlusion - 95-99% stenosis. Occluded - 100% stenosis. IMPRESSION: Negative CTA neck. Electronically signed by: Jada Mayen MD 11/06/23 00:16 AM ECG Additional Comments: ECG. Normal sinus rhythm at rate of 82. Possible left atrial enlargement. Nonspecific ST and T wave abnormality. No significant change was found. Code Status & VTE Plan VTE Prophylaxis Plan VTE Prophylaxis will be ordered: Yes
[2023-11-06] MEDS ORDERED: ALBUTEROL HFA 8 GM INHALER INH PRN (03:59)
[2023-11-06] MEDS ORDERED: POLYETHYLENE (MIRALAX) 17 GM PACK PO PRN (03:59)
[2023-11-06] MEDS ORDERED: NITROGLYCERIN SL 0.4 MG/TAB TAB SL PRN (03:59)
[2023-11-06] MEDS ORDERED: ACETAMINOPHEN 325 MG TAB PO PRN (03:59)
[2023-11-06] MEDS ORDERED: PHARMACIST DISCHARGE MED REC CONSULT PRN (03:59)
[2023-11-06] MEDS: GADOBUTROL 30ML VIAL IV ONE (04:48)
[2023-11-06] MEDS: SODIUM CHLORIDE 0.9% 1,000 ML IV SCH (05:07)
--- NOTE | 2023-11-06 07:29 | Magnetic Resonance Report ---
MR venography head wo con CLINICAL HISTORY: possible thrombus in left dural venous sinus on ct COMPARISON STUDY: Head CT and CTA of the head November 05, 2023. TECHNIQUE: Utilizing a 1.5 Chantal magnet and [id number] technique, unenhanced MRV of the head was obtained. FINDINGS: The superior sagittal sinus is patent. The left transverse sinus is diminutive. This is on a congenital basis and unchanged from earlier CTA of July 31, 2021. The right transverse and sigmo id sinuses are patent. The left sphenoid sinus is patent. The proximal bilateral internal jugular vei ns are patent. There is no dural sinus thrombosis. IMPRESSION: No dural sinus thrombosis. 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 ACT 112: Negative or not required by law. Electronically signed by: Rohan Peguero M.D. 11/06/2023 7:27 AM
[2023-11-06] MEDS: DOXYCYCLINE HYCLATE 50 MG CAP PO SCH (07:32)
[2023-11-06] MEDS: METOPROLOL SUCC 25MG EXT REL TAB PO SCH (07:32)
[2023-11-06] MEDS: SPIRONOLACTONE 100 MG TAB PO SCH (07:32)
[2023-11-06] MEDS: FAMOTIDINE 20 MG TAB PO SCH (07:33)
[2023-11-06] MEDS: FLUTICASONE PROPIONATE NA SPR 16 GM BTL SCH (07:33)
--- NOTE | 2023-11-06 07:42 | Magnetic Resonance Report ---
MRI OF THE BRAIN WITHOUT AND WITH IV CONTRAST CLINICAL HISTORY: stroke like symptoms COMPARISON STUDY: MRI of the brain July 31, 2021. Head CT and CTA of the head November 05, 2023. TECHNIQUE: Utilizing a 1.5 Chantal magnet and dedicated coil, multiplanar, multiecho imaging of the br ain was performed pre and postcontrast administration. IV administration of 10 mL of [address] contra st was uneventful. FINDINGS: There are no foci of restricted diffusion to suggest acute infarct. No acute intracranial h emorrhage, midline shift or mass effect is present. Brain volume is normal. Ventricular system is nor mal. Basal cisterns are patent. Flow-voids for the major intracranial vessels are present. There is n o intracranial mass or pathologic enhancement. No parenchymal signal abnormality is present. No evide nce for sinusitis. There is no mastoid fluid. No orbital abnormality is present. IMPRESSION: Unremarkable MRI of the brain. ACT 112: Negative or not required by law. Electronically signed by: Rohan Peguero M.D. 11/06/2023 7:40 AM
[2023-11-06 07:43] LABS: Basophils # (auto) 0.02 K/uL (0.00-0.20); Basophils % (auto) 0.3 %; Eosinophils # (auto) 0.42 K/uL (0.00-0.50); Eosinophils % (auto) 5.8 %; Hemoglobin 12.2 g/dl (12.0-16.0); Immature Granulocytes # (auto) 0.02 K/uL (0.01-0.20); Immature Granulocytes % (auto) 0.3 %; Lymphocytes # (auto) 2.32 K/uL (1.20-3.40); Mean Corpuscular Hemoglobin 28.3 pg (25.0-34.0); Mean Corpuscular Hgb Conc 33.9 g/dL (32.0-36.0); Mean Corpuscular Volume 83.5 fL (80.0-100.0); Mean Platelet Volume 9.5 fL (9.4-12.4); Monocytes # (auto) 0.56 K/uL (0.11-0.59); Monocytes % (auto) 7.7 %; Neutrophils # (auto) 3.92 K/uL (1.40-6.50); Neutrophils % (auto) 53.9 %; Platelet Count 237 K/uL (130-400); RDW Standard Deviation 39.8 fL (36.4-46.3); Red Blood Count 4.31 M/uL (4.20-5.40); White Blood Count 7.26 K/ul (4.8-10.8)
[2023-11-06 08:09] LABS: BUN Creatinine Ratio 15.7 (10-20); Calcium 8.6 mg/dl (8.6-10.3); Chol HDL Ratio 4.3 (0-5); Creatinine Clr Calc Pharmacy 113.3 ml/min; Est GFR (African American) 107.4 ml/min; Est GFR (Non-African American) 92.7 ml/min
[2023-11-06 08:43] LABS: Estimated Average Glucose 114 mg/dl; Hemoglobin A1C 5.6 % (4.5-5.6)
[2023-11-06 11:47] LABS: Pregnancy Test, Urine Negative (Negative)
--- NOTE | 2023-11-06 13:28 | Electrocardiogram Report ---
Test Reason : Blood Pressure : / mmHG Vent. Rate : 082 BPM Atrial Rate : 082 BPM P-R Int : 154 ms QRS Dur : 068 ms QT Int : 336 ms P-R-T Axes : 049 042 -03 degrees QTc Int : 392 ms Normal sinus rhythm Nonspecific ST and T wave abnormality Abnormal ECG When compared with ECG of 16-FEB-2023 17:40, No significant change was found Confirmed by Darryl Webber ([id number]) on 11/06/2023 1:28:39 PM Referred By: REFERRED SELF Confirmed By:Darryl Webber
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
--- OUTSIDE RECORDS SUMMARY | 2023-11-06 16:32 | External Medical Summary | Summary of Care ---
Author Name Unknown Organization [facility] Address [address] [place] [address] Phone [phone] Care Team Providers Care Vendor Quality Supervisor Name Role Phone Merced Quinteros PA-C Primary Care Provider [phone] Reason for Visit * Reason Comments Post-Op Encounter Details Date Type Department Care Team (Late st Contact Info) Description 11/03/2023 1:30 PM EDT Office Visit Gynecology/Obstetics [place] [address] [place] [phone] Issac Real MD [address] [place] [address] Post-operative state* Allergies Active Allergy Reactions Criticality Noted Date Comments Adhesive Tape Rash 09/04/2014 Almost burned skin Coconut (Cocos Nucifera) Rash 12/01/2006 Watermelon Concentrate 09/26/2013 Watermelon - hive, vomit documented as of this encounter (statuses as of 11/03/2023) Medications Medication Sig Dispensed Refills Start Date [...] as of this encounter (statuses as of 11/03/2023) Active Problems Problem Noted Date Diagnosed Date [...] range. Based on Blood Bank evaluation at [facility], we should consider this patient's blood type [...] genetic disease 12/12/2021 Overview: Maternal history of Natxf-Phyxwrwzf-Qzqqs. Last Assessment & Plan: Considerations: Most cases of Dlfdr-Ayovkcynz-Egsxd syndrome occur in people with no family history of the condition. In most cases, Gsgxg-Dkiozqgob-Voudl is a sporadic condition. Some patients with Qohec-Uifzhvoxt-Fofxj have a genetic change in the PRKAG2 gene that can lead to Jaade-Ncykjedqs-Iupjt. This condition is is inherited in an [...] record release and obtain medical records from [facility]. Last Assessment & Plan: Recommendations: Pfannensteil incision for delivery. Sign medical record release and obtain medical records from [facility]. Family history of spina bifida 12/12/2021 Overview: [...] after laparoscopy for ovarian cyst drainage at [facility]. 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 Overview: Most recently, Lucina was seen by [...] found Ventricular Rate: 79 Atrial Rate: 79 ME Interval: 148 QRS Duration: 86 QT/QTc: 356/408 [...] chest pain, palpitations, or syncope. - Attend [facility] cardiology referral on 12/19/21. o Medications - Optimize hemoglobin; encourage heme iron intake through lean red meat consumption as well as oral ferrous sulfate therapy; consider Venofer infusions. - Qamag-rtoa-afrqxcrchx antagonism may be achieved with labetalol, a [...] anesthesia for pre-procedure assessment and consider notifying recycler forklift driver truck driver of patient's presence on L&D. o Consider [...] complicating 12/12/2021 06/24/2023 Overview: Concomitant AVNRT with Ifgzz-Pluarsyay-Ejxdf Last Assessment & Plan: Patient will be [...] as of this encounter (statuses as of 11/03/2023) Immunizations Name Administration Dates Next Due HPV [...] money to get more. Never true 06/11/2022 [place] Depression Scale Answer Date Recorded [place] Depression Scale Total 0 08/20/2022 The thought [...] Sign Reading Time Taken Comments Blood Pressure 118/74 11/03/2023 1:39 PM EDT Pulse - - Temperature - - Respiratory Rate - - Oxygen Saturation - - Inhaled Oxygen Concentration - - Weight 105.1 kg (231 lb 12.8 oz) 11/03/2023 1:39 PM EDT Height - - Body Mass Index 38.27 10/26/2023 3:54 PM EST documented in this [...] as of this encounter Progress Notes * Issac Real MD - 11/03/2023 1:40 PM EDT Lucina Wall 11/03/2023 CC: Here for 2 week post op check HPI: The pt is a 33 year old female presents 2 weeks post op from a tubal Admits to mild soreness and some suture discomfort States doing well with no concerns today Passing flatus and having normal bowel movements Voiding spontaneously with minimal difficulty Denied any fevers chills,chest pain or SOB Pain well controlled . Path:benign tubes PE: Pleasant Female NAD BP 118/74 | Wt 105.1 kg (231 lb 12.8 oz) | BMI 38.27 kg/m | BSA 2.2 m Abdominal exam: Incisions clean dry and intact with mild tenderness soft non distended non tender Pelvic exam - Deferred Ware Dresser Documentation Patient offered check inspector and declined. A/P: 33 year old yo female 2 wks post op from tubal Advised routine annual Advised neosporin to incisions Advised pain meds prn Advised call with concerns Sutures should fall off with time and bruising should heal in 3-4 wks Advised return to work without restrictions Issac Real MD documented in this encounter Nursing Notes * Natalia Gomez CCMA - 11/03/2023 1:38 PM EDT Pt here for post op documented in this encounter Plan of Treatment Upcoming Encounters Date Type Department Care Team (Late st Contact Info) Description 11/25/2023 11:20 AM EDT Office Visit Dermatology[address] [address] Jayne Grossman PA-Jesika [address] [place] [address] [place] [address] 05/05/2024 9:30 AM EDT Office Visit Cardiology, [facility] [address] [facility] [place] [address] Helena Brown CRNP [address] [facility] [place] [address] Health Maintenance Due Date [...] as of this encounter Visit Diagnoses Diagnosis Post-operative state- Primary Other postprocedural status documented in this encounter Advance Directives Latest [...] the patient have Health Care Power of Piece Marker Small Arms? No Care Teams Vendor Quality Supervisor Relationship Specialty Start Date End Date Merced Quinteros PA-C [address] [facility] [place] [address] PCP - General Physician Roofer Applicator 04/15/22 documented as of this encounter
--- OUTSIDE RECORDS SUMMARY | 2023-11-06 16:33 | External Medical Summary | Summary of Care ---
Author Name Unknown Organization [facility] Address [address] [place] [place] [address] Phone [phone] Care Team Providers Care Horse Rider Name Role Phone Merced Quinteros PA-C Primary Care Provider [phone] Reason for Visit * Reason Comments eRx-Medication Refill Encounter Details Date Type Department Care Team (Late st Contact Info) Description 10/16/2023 Refill [facility] [address] [place] [address] Merced Quinteros PA-C [address] [place] [address] Allergies Active Allergy Reactions Criticality Noted Date Comments Adhesive Tape Rash 09/04/2014 Almost burned skin Coconut (Cocos Nucifera) Rash 12/01/2006 Watermelon Concentrate 09/26/2013 Watermelon - hive, vomit documented as of this encounter (statuses as of 10/16/2023) Medications Medication Sig Dispensed Refills Start Date [...] tablet daily 90 Tablet 1 08/06/2023 Active Doxycycline Hyclate 50 MG Oral Capsule (Vibramycin)Indica tions:Axillary hidradenitis suppurativa 1 capsule daily 90 Capsule 1 08/06/2023 Active Proventil HFA 108 (90 Base) MCG/ACT Inhalation Aerosol SolutionIndication s:SOB (shortness of breath) Inhale 2 Puffs by mouth every 4 hours as needed for Wheezing. 18 g 2 10/07/2023 Active Metoprolol Succinate ER 25 MG Oral Tablet Extended Release 24 Hour (toPROL XL) TAKE 1 TABLET BY MOUTH EVERY DAY IN THE MORNING 90 Tablet 1 10/16/2023 Active Metoprolol Succinate ER 25 MG Oral Tablet Extended Release 24 Hour (toPROL XL) TAKE 1 TABLET BY MOUTH EVERY DAY IN THE MORNING 90 Tablet 1 04/16/2023 4 Discontinued Hospital, Clinic, or Other Facility Administered Medication Ordered Dose Route Frequency Start Date End Date Status medroxyPROGESTERone (contracep) (Depo-Provera) inj 150 mgIndications:Surveillance for Depo-Provera contraception 150 mg IM [id number] 09/24/2023 Active documented as of this encounter (statuses as of 10/16/2023) Active Problems Problem Noted Date Diagnosed Date [...] range. Based on Blood Bank evaluation at [facility], we should consider this patient's blood [...] genetic disease 12/12/2021 Overview: Maternal history of Gmkum-Qzyolzeup-Ybdbs. Last Assessment & Plan: Considerations: Most cases of Epyrv-Uiumzvoqo-Ealya syndrome occur in people with no family history of the condition. In most cases, Zwljo-Ssmyqtapi-Pagmq is a sporadic condition. Some patients with Xbnww-Savrgyfsm-Wytiz have a genetic change in the PRKAG2 gene that can lead to Zywan-Ijwugbzfp-Gxjah. This condition is is inherited in an [...] record release and obtain medical records from [facility]. Last Assessment & Plan: Recommendations: Pfannensteil incision for delivery. Sign medical record release and obtain medical records from [facility]. Family history of spina bifida 12/12/2021 Overview: [...] after laparoscopy for ovarian cyst drainage at [facility]. 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 Overview: Most recently, Lucina was seen by [...] found Ventricular Rate: 79 Atrial Rate: 79 [place] Interval: 148 QRS Duration: 86 QT/QTc: 356/408 [...] chest pain, palpitations, or syncope. - Attend [facility] cardiology referral on 12/19/21. o Medications - Optimize hemoglobin; encourage heme iron intake through lean red meat consumption as well as oral ferrous sulfate therapy; consider Venofer infusions. - Djibp-goju-uiwhdqhpwu antagonism may be achieved with labetalol, a [...] anesthesia for pre-procedure assessment and consider notifying guardian ad litem of patient's presence on L&D. o Consider [...] complicating 12/12/2021 06/24/2023 Overview: Concomitant AVNRT with Livmz-Hqzdjvivm-Sfyhf Last Assessment & Plan: Patient will be [...] as of this encounter (statuses as of 10/16/2023) Immunizations Name Administration Dates Next Due HPV Vaccine, 4-Valent 11/16/2007,05/17/2007,02/21 Meningococcal Conjugate Vacc ine (Menactra/Menveo) 03/16/2007 PPD 09/29/2022,,10/15/2016,09/18,06/08/2008 Seasonal Influenza, Split, I IV3, With Preserve, [...] money to get more. Never true 06/11/2022 [place] Depression Scale Answer Date Recorded [place] Depression Scale Total 0 08/20/2022 The thought [...] No 05/23/2021 documented as of this encounter Miscellaneous Notes * Telephone Encounter - Marcelle Figueroa RPh - 10/16/2023 3:25 PM ESTSigned Prescriptions: Disp Refills Metoprolol Succinate ER 25 MG Oral Tablet *90 Tab*1 Sig: TAKE 1 TABLET BY MOUTH EVERY DAY IN THE MORNINGAuthorizing Provider: MERCED QUINTEROS User: MARCELLE FIGUEROA documented in this encounter Plan of Treatment Upcoming Encounters Date Type Department Care Team (Latest Contact Info) Description 10/18/2023 11:59 AM EST Hospital Encounter OR [facility], Operating Room, [facility] 1st Floor [address] [place] [address] Issac Real MD [address] [place] [address] 10/18/2023 11:59 AM EST - 10/18/2023 1:19 PM EST Surgery OR [facility], Operating Room, [facility] 1st Floor [address] [place] [address] Issac Real MD [address] [place] [address] LAPAROSCOPIC OOPHORECTOMY AND OR SALPINGECTOMY 10/25/2023 4:20 PM EST Office Visit Family [facility] [place] [address] [place] [address] Merced Quinteros PA-C [address] [place] [address] 11/03/2023 1:30 PM EDT Office Visit Gynecology/Obsteti cs [address] [phone] Issac Real MD [address] [place] [address] 11/25/2023 11:20 AM EDT Office Visit Dermatology, [place] [address] [place] [address] Jayne Grossman PA-C [address] [place] [address] [place] [address] 05/05/2024 9:30 AM EDT Office Visit Cardiology, [facility] [address] [facility] [place] [address] Helena Brown CRNP [address] [facility] [place] [address] Scheduled Procedures Name Priority Associated Diagnoses Date/Ti me LAPAROSCOPIC OOPHORECTOMY AN D OR SALPINGECTOMY Sterilization 10/18/2023 11:59 AM EST Health Maintenance Due Date Last Done Comments [...] 11/05/2008, Additional history exists MENINGOCOCCAL (MENACTRA/MENVEO) Completed , 03/16/2007 GARDASIL-HPV IMMUNIZATION SERIES Completed 11/16/2007, 05/17/2007, [...] Activated Date Inactivated Comments Full Code 07/07/2022 6:02 AM 07/07/2022 3:14 [...] the patient have Health Care Power of High Pressure Kettle Operator? No Full Code 02/04/2021 2:44 PM 02/04/2021 7:42 PM This order reflects the patients wishes and were consensually agreed upon. Care Teams Horse Rider Relationship Specialty Start Date End Date Merced Quinteros PA-C [address] [place] [address] PCP - General Physician Business Machines Teacher 04/15/22 documented as of this encounter
--- OUTSIDE RECORDS SUMMARY | 2023-11-06 16:33 | External Medical Summary | Summary of Care ---
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 F) Max: 36 C (96.8 F) Pulse: Pulse Av Min: 61 Max: 61 Respirations: Resp Av Min: 17 Max: 17 SpO2: SpO2 Av % Min: 100 % Max: 100 % General: WDWN in NAD CV: RRR w/o rgm Resp: CTAB Labs: Results for orders placed or performed during the hospital encounter of 10/18/23 HCG QUALITATIVE, URINE Result Value Ref Range HCG Qualitative, Urine Negative Negative Imaging: No new imaging IMPRESSION: Lucina Wall is a 33 year old presenting for scheduled laparoscopic bilateral salpingectomy due to desire for permanent sterilzation. Appropriate consents were obtained and patient was counseled on the risks of surgery. Patient expressed understanding and would like to proceed with surgery. PLAN: - Proceed with scheduled surgery - Abx: None - IVF - COMPA/SCDs This patient's history, physical exam, assessment and plan of care were reviewed and discussed withDr. Real Associated attestation - Issac Real MD - 10/18/2023 11:55 AM EST I saw and evaluated the patient today. I have reviewed the trainee note and agree. documented in this encounter Nursing Notes * Leticia Son RN - 10/18/2023 2:28 PM EST Patient tolerated post op period without issues, ambulated to bathroom and voided without difficulty. IV removed, vitals stable, and no pain. D/C instructions covered with patient and spouse. All questions and concerns addressed. Pt left to personal car via WC in stable condition. * Abhishek Lundy RN - 10/06/2023 11:45 AM EST PREOP PATIENT INFORMATION AND EDUCATION: MEDICATION INSTRUCTIONS: The day of surgery/procedure, you may TAKE the following medications with a sip of water up to 2 hours prior to your arrival time: metoprolol, famotidine STOP taking the following medications the noted number of days prior to surgery/procedure unless otherwise specified by your surgeon: Please follow surgeon's instructions regarding use of Aspirin, Coumadin, Plavix, Eliquis, and any other blood thinner including NSAIDs (non-steroidal anti- inflammatory drugs, eg, Advil, Ibuprofen, Motrin, Aleve, Naproxen); if you have any questions regarding your anticoagulation therapy please contact your surgeon's clinic. Please verify any proposed stoppage of your anticoagulation therapy with the agent's prescribing provider. 10 days prior to surgery/procedure Stop all Herbal supplements, Green Tea, Turmeric, Melatonin, CBD, THC, etc. Stop all Vitamins (including Vitamin E) 24 hours prior to surgery/procedure DO NOT consume any alcohol. DO NOT use medical marijuana. DO NOT smoke or use tobacco products of any kind after midnight prior to surgery. *Using any of these products may increase your risks of procedural complications. IF IT IS LESS THAN RECOMMENDED STOPPAGE TIME PLEASE STOP AT TIME OF NOTIFICATION. FASTING RECOMMENDATIONS: To reduce risk, it is important for all elective surgery patients to follow the specific fasting guidelines listed below. If you have received more stringent guidelines, please follow the MOST RESTRICTIVE guidelines that you have been provided. DO NOT EAT after midnight on the night prior to your surgery date. You are allowed to drink clear liquids up to two hours prior to arrival time to the hospital or surgery center. Examples of clear liquids include water, clear fruit juice without pulp, clear carbonated beverages, clear tea, and black coffee. Any drinks given by your surgical service take as directed. Infant/pediatric patients who currently drink breast milk, formula, and non-human milk must not eat after midnight. These patients are allowed to drink only the liquids listed below up to two hours prior to arrival time to the hospital or surgery center: Ingested Material Minimum Fasting Time Clear liquid After midnight up to 2 hours prior to arrival time Breast milk Up to 4 hours prior to arrival time formula Up to 6 hours prior to arrival time Non-human milk Up to 6 hours prior to arrival time THE DAY BEFORE YOUR SURGERY: -Drink plenty of fluid the day before your surgery. Contact your surgeon's office if you develop any of the following within 2 weeks of surgery: A cold Infection Fever Shingles Chicken pox or exposure to chicken pox Open areas such as scrapes, cuts, martinez or other skin conditions Rashes GENERAL INSTRUCTIONS FOR PREPARING FOR SURGERY: BATHING INSTRUCTIONS: Bathe the evening prior to and the morning of surgery/procedure. Cleanse your body using ONLY anti-bacterial soap (eg, Dial, Safeguard) or any specific soap/cleansers and instructions provided by your surgeon (eg, Chlorhexidine). -You should brush your teeth the morning of surgery. Do NOT apply any lotions, powders, sprays, creams, oils, make-up, or deodorants after bathing. No hairspray, or nail turkish on fingers or toes. Day of surgery/procedure do not use tampons. If you wear contacts wear your eyeglasses if available otherwise bring your contact supplies with you to remove them prior to your surgery/procedure. If you wear glasses or dentures, please bring cases in which you can store them during your surgery. Please remove all piercings and jewelry and leave them at home. Wear comfortable and loose clothing. -Please leave all valuables at home. -If you use a CPAP and are staying overnight, please bring your mask and tubing with you to the hospital. -If you use an assistive mobility device (walker, cane, etc), please label it with your name and bring to hospital. -An escort regional company truck driver is required if you are being discharged the same day of the surgery. You should have a responsible adult over the age of 18 [address] you home. This person should be present with youin the hospital at the time of discharge and for the first 24 hours after the surgery to support your needs. If you are taking a taxi home, you must have your responsible republican accompany you in the taxi ride home at the time of discharge. OR times subject to change. Please check voicemail messages the day/evening before your surgery forany updates. PRE-OP: You will be taken to the pre-op area where your vital signs (blood pressure, pulse and temperature)will be taken. Any preparations that need to be done will be done there. When it is time for your surgery, you will be taken to the operating room. PARENTS OF PEDIATRIC PATIENTS WILL BE ALLOWED TO STAY WITH THEIR CHILDREN UNTIL THEY ARE ESCORTED TO THE OPERATING ROOM OUTPATIENT SURGERY PATIENTS: After your surgery you will be taken to the Same Day Surgery Unit when you are awake and will go home from there. You will get instructions about your home care before you leave. Arrange to have someone drive you home from the hospital. You may not drive for 24 hours after anesthesia. You must havean adult stay with you at home for 24 hours after your operation. This is very important. If you are not able to comply with these guidelines, your Short Stay surgery cannot be done. ADMISSION PATIENTS: After your stay in the recovery area, you will be taken to your room. Your family may visit you in your room based on current visitation policy. If a next day discharge is expected, it is important to make arrangements for a regional company truck driver to take you home. Please be aware our visitation policies are subject to change Professionals, attendants, caregivers or family members are allowable visitors for patients with intellectual, developmental or cognitive disabilities, communication barriers or behavioral concerns. Because patients' and families' needs vary, they will be taken into account when applying visitation restrictions. [facility]: ext 4 Please enter through the Main Entrance of the [facility] which is directly across from the main parking lot. Stop at the registration desk, which is inside the main entrance, to register first. They will then direct you back to Same Day Surgery. You will be called the day before surgery (on Wednesday if your surgery is Wednesday) with the time to be at the hospital. If you have notbeen called by 4:00 p.m., please call [phone] and ask for the nursing supervisor intelligence analyst. THANK YOU FOR CHOOSING [employer]! documented in this encounter OR Notes * OR Surgeon - Christopher Perkins MD - 10/18/2023 12:46 PM EST [place] [address] OPERATIVE REPORT Name: Lucina Wall Date: 10/18/2023 Time: 12:46 PM Location: OR [facility] Service: Gynecology Date of Operation: 10/18/2023 Pre-op Diagnosis: Desire for permanent sterilization Post-op Diagnosis: same Surgeon: Issac Real MD Assistants: Christopher Perkins MD PGY2 Anesthesia: General endotracheal anesthesia Operation: Bilateral salpingectomy 2. AGUSTIN Drains: Urinary Catheter (Blanc) draining clear yellow urine, removed at the end of the case. Complications: none Findings: 1. External genitalia appears normal. On bimanual exam, uterus anteverted, normal size, mobile. 2. On speculum exam, cervix visualized. Appears multiparous and dilated at baseline. No polyps, lesions or abnormal vasculature noted. No gross bleeding or abnormal discharge noted from cervix. 3. On laparoscopy, normal appearing bilateral ovaries, fallopian tubes, uterus, posterior cul-de-sac. No evidence of endometriosis. Bowel, liver edge, appendix were visualized without evidence of injury. Adhesions noted to the anterior abdominal wall. Bilateral ureters visualized at the start and end of the case with no evidence of injury. Condition: stable Specimens/Disposition: Bilateral fallopian tubes Estimated Blood Loss: 5 mL IV Fluids: 700 mL Urine Output: 75 mL Indications: Lucina Wall, 33 year old, with desire for permanent sterilization. Description of Operation: The patient was identified and the procedure was verified. Pt was taken to the OR where general endotracheal anesthesia was given. The patient was placed in modified dorsal lithotomy position where she was prepped and draped in the normal, sterile fashion. A blanc cathter was placed in the bladder.A spongestick was placed in the vagina. A bi-valve speculum was placed into the vagina. Attention was then turned towards the abdomen. After skin injection of 0.25% marcaine with epinephrine, a 5mm umbilical incision was then made through which a 5mm trocar and sleeve were inserted under direct visualization. Pneumoperitoneum was established with CO2. No omental and bowel trauma was noted below the incision site. A second 5 mm incision was made 3 cm medially and superiorly to the left ASIS after skin injection with 0.25% marcaine with epinephrine. This was followed by insertion of a 5 mm trocar and sleeve under direct visualization. A third 5mm port site was established in the right lower quadrant of the abdomen in the same fashion. The above findings were noted. a small portion of the anterior abdominal wall adhesion was taken down to help improve visualization. Hemostasis noted Using the grasping forceps, the right fallopian tube was identified throughout its entire length and grasped proximally to the fimbria to stabilize the tube. Using the Ligasaure with bipolar cautery,fulguration and transection of the mesosalpinx along the entire right oviduct took place. The tube was transected at the right cornua and removed from the abdomen through the left trocar sleeve. There was no bleeding from the mesosalpinx. The left fallopian tube was then identified throughout its entire length and the enseal with bipolar cautery was applied. Fulguration and transection of the mesosalpinx along the entire left oviduct took place. The tube was transected at the left cornua and removed from the abdomen through the right trocar sleeve. There was no bleeding from the mesosalpinx. Both fallopian tubes were sent to pathology. All instruments were removed from the abdomen under direct visualization. Intraabdominal carbon dioxide was allowed to escape through the trochar sleeves. The lateral sheeths were removed under direct visualization and the laparoscope was removed. The skin incisions were re-approximated with 4-0 Monocryl and Dermabond. The Blanc was removed. The vagina was inspected and found not to contain any instruments or sponges. Sponge, needle, and instrument counts were correct x2. There were no intraoperative complications, and patient tolerated the procedure well. Once the patient was extubated and awake, she was escorted by me from the OR to the recovery room in stable condition. Attestation: Dr. Real was present and scrubbed for the entire procedure. Christopher Perkins MD Associated attestation - Issac Real MD - 10/18/2023 1:18 PM EST Attending Attestation: I have discussed the patient's management with the medical trainee and agree with the note. Please refer to the documented findings and plan of care. The patient's bedside service today consisted of a procedure. I was present for the entire procedure. documented in this encounter Plan of Treatment Upcoming Encounters Date Type Department Care Team (Late st Contact Info) Description 10/25/2023 4:20 PM EST Office Visit [facility] [address] [place] [phone] Merced Quinteros PA-C [address] [place] [address] 11/03/2023 1:30 PM EDT Office Visit Gynecology/Obstetics [address] [phone] Issac Real MD [address] [place] [address] 11/25/2023 11:20 AM EDT Office Visit Dermatology, [address] [address] Jayne Grossman PA-C [address] [place] [address] [place] [id number] 05/05/2024 9:30 AM EDT Office Visit Cardiology, [facility] [address] [facility] [place] [address] Helena Brown CRNP [address] [facility] [place] [phone] Pending Results Name Type Priority Associated Diagnoses Date /Time SURGICAL PATHOLOGY Pathology Routine Sterilization 10/18/2023 12:26 PM EST Scheduled Orders Name Type Priority Associated Diagnoses Orde r Schedule SURGICAL PATHOLOGY Pathology Routine Sterilization Release Upon Ordering for 1 Occurrences starting 10/18/2023, 1 completed Health Maintenance Due Date Last Done Comments Pneumococcal Vaccine: Pediat rics (0 to 5 Years) and At-Risk Patients (6 to 64 Years) (1 of 2 - PCV) 1996 Depression Screening 10/18/2020 10/18/2019 COVID-19 Vaccine ( - 2022-2 4 season) 2023 Influenza Vaccine [...] Not on filedocumented as of this encounter Procedures Procedure Name Priority Date/Time Associated Diagnosis Comments HCG QUALITATIVE, URINE STAT 10/18/2023 11:00 AM EST documented in this encounter Results * HCG QUALITATIVE, URINE (10/18/2023 11:00 AM EST) HCG Qualitative, Urine Negative Negative 10/18/2023 11:27 AM EST LABORATORY [facility] Urine Urine specimen obtained by clean catch procedure / Unknown Non-blood Collection / Unknown 10/18/2023 11:00 AM EST 10/18/2023 11:18 AM EST Issac Real MD LAB URINE ORDERABLES LABORATORY [address] [phone] documented in this encounter Visit Diagnoses Diagnosis Sterilization Acute conjunctivitis of left eye, unspecified acute conjunctivitis type Contact lens related conjunctivitis Body mass index (BMI) of 40.0 to 44.9 in adult (HCC) Sterilization documented in this encounter Administered Medications Inactive Administered Medications - up to 3 most recent administrations Medication Order MAR Action Action Date Dose Rate Site Acetaminophen (Tylenol) tab 975 mg 975 mg, Oral, PREOP, First dose on Wed10/18/23 at 1130, Last dose on Wed10/18/23 at 1130, For 1 dose, Maximum 4 g acetaminophen/day. Avoid in patients with severe hepatic impairment or severe active liver disease. Administer 60 minutes prior to OR., Pre-Op Given 10/18/2023 11:43 AM EST 975 mg isolyte-S pH 7.4 infusion Intravenous, at 25 mL/hr, All Patients EXCEPT Dialysis patients Plasma-LYTE 148, isolyte-S, and isolyte-S pH 7.4 are considered equivalent - including for MAR barcode scanning., CONTINUOUS, Starting on Wed10/18/23 at 1130, Until Wed10/18/23 at 1842, Pre-Op New Bag 10/18/2023 11:44 AM EST 25 mL/hr 25 mL/ hr ondansetron (Zofran) inj 4 mg 4 mg, IV Push, Q6H PRN Nausea, Starting on Wed10/18/23 at 1136, Until Wed10/18/23 at 1842, For 1 day, Administer only during the first hour post-op in PACU., PACU oxyCODONE (Oxy IR) tab 5 mg 5 mg, Oral, ONCE PRN Pain, Moderate, Starting on Wed10/18/23 at 1135, Until Wed10/18/23 at 1842, For 1 dose, Administer only postop in PACU, PACU oxygen GAS Inhalation, OXYGEN, First dose on Wed10/18/23 at 1600, Until Discontinued, Device/Managed by: Low Flow Device, Goal SPO2 (%): 91-95, Starting Device: Nasal Cannula, Initial Flow Rate (LPM): 2, Lowest Support: Nasal Cannula: Flow 0-6 LPM. Titrate up/down by 1 LPM., Higher Support: Non-Rebreather (NRB) Mask: Minimum of 10 LPM. Titrate to maintain bag inflation., Titration Interval: Q2 minutes and as needed., Notify Provider: Other, Notify Provider [other]: If SpO2 less than 88% or NOT maintaining SpO2 greater than 92% notify physician immediately., Until awake OR SpO2 greater than 95% for 15 minutes, then Titrate O2 flow rate down to maintain SpO2 greater than 92% If SpO2 is less than 88% place patient on NRB mask at 10 LPM documented in this encounter Active and Recently Administered Medications Times are shown in EST. Scheduled Medication Order 10/16/2023 10/17/2023 10/18/2023 Acetaminophen (Tylenol) tab 975 mg (COMPLETED) 975 mg, Oral, PREOP, First dose on Wed10/18/23 at 1130, Last dose on Wed10/18/23 at 1130, For 1 dose, Maximum 4 g acetaminophen/day. Avoid in patients with severe hepatic impairment or severe active liver disease. Administer 60 minutes prior to OR., Pre-Op 1143 (Given - Provid er: Leticia Son RN) chlorhexidine gluconate cloth 2 % pad 1 Pad 1 Pad, External, ONCE, On Wed10/18/23 at 1130, For 1 dose, As applicable by procedure for patients 2 months and older unless contraindicated. , Pre-Op 1130 (Due) influenza virus vaccine, quadrivalent (Flulaval Quad) inj 0.5 mL Intramuscular, 0.5 mL (1 Syringe), Add Lot# and Mechanic Recovery in Immunization Info section of [facility] ! Store in Refrigerator SHAKE WELL PRIOR TO ADMINISTRATION RX WASTE CODE- BKC, ONCE, 1 dose, On Wed10/18/23 at 1330, Post-op 1330 (Due) oxygen GAS Inhalation, OXYGEN, First dose on Wed10/18/23 at 1600, Until Discontinued, Device/Managed by: Low Flow Device, Goal SPO2 (%): 91-95, Starting Device: Nasal Cannula, Initial Flow Rate (LPM): 2, Lowest Support: Nasal Cannula: Flow 0-6 LPM. Titrate up/down by 1 LPM., Higher Support: Non-Rebreather (NRB) Mask: Minimum of 10 LPM. Titrate to maintain bag inflation., Titration Interval: Q2 minutes and as needed., Notify Provider: Other, Notify Provider [other]: If SpO2 less than 88% or NOT maintaining SpO2 greater than 92% notify physician immediately., Until awake OR SpO2 greater than 95% for 15 minutes, then Titrate O2 flow rate down to maintain SpO2 greater than 92% If SpO2 is less than 88% place patient on NRB mask at 10 LPM Pneumococcal 20-Natalie Conj Vacc (Prevnar 20) inj 0.5 mL 0.5 mL, Intramuscular, ONCE, On Wed10/18/23 at 1330, For 1 dose, Add Lot# and Mechanic Recovery in Immunization Info section of [facility], Post-op 1330 (Due) Continuous Medication Order 10/16/2023 10/17/2023 10/18/2023 isolyte-S pH 7.4 infusion Intravenous, at 140 mL/hr, KVO --- For Periop use. Plasma-LYTE 148, isolyte-S, and isolyte-S pH 7.4 are considered equivalent - including for MAR barcode scanning., CONTINUOUS, Starting on Wed10/18/23 at 1130, Until Wed10/18/23 at 1842, Pre-Op 1130 (Due)1257 (Anes Intra-Op Fluid - Provider: Aretha Hill, PHP ENGINEER/MAIL ROOM) isolyte-S pH 7.4 infusion Intravenous, at 25 mL/hr, All Patients EXCEPT Dialysis patients Plasma-LYTE 148, isolyte-S, and isolyte-S pH 7.4 are considered equivalent - including for MAR barcode scanning., CONTINUOUS, Starting on Wed10/18/23 at 1130, Until Wed10/18/23 at 1842, Pre-Op 1144 (New Bag - Prov ider: Leticia Son RN) PRN Medication Order 10/16/2023 10/17/2023 10/18/2023 bacitracin zinc ointment (CANCELED) ONCE PRN INTRA PROCEDURE, Starting on Wed10/18/23 at 1243, Until Wed10/18/23 at 1252, Intra-Op 1243 (Given - Provid er: Issac Real MD - Comment: INNER RIGHT THIGH ABCESS) bupivacaine HCl 20 mL, sodium chloride 0.9 % 20 mL inj (CANCELED) ONCE PRN INTRA PROCEDURE, Starting on Wed10/18/23 at 1224, Until Wed10/18/23 at 1252, Intra-Op 1224 (Given - Provid er: Issac Real MD) ondansetron (Zofran) inj 4 mg 4 mg, IV Push, Q6H PRN Nausea, Starting on Wed10/18/23 at 1136, Until Wed10/18/23 at 1842, For 1 day, Administer only during the first hour post-op in PACU., PACU ondansetron (Zofran) inj 4 mg 4 mg, IV Push, Q6H PRN Nausea, Starting on Wed10/18/23 at 1244, Until Wed10/18/23 at 1842, Post-op oxyCODONE (Oxy IR) tab 5 mg 5 mg, Oral, ONCE PRN Pain, Moderate, Starting on Wed10/18/23 at 1135, Until Wed10/18/23 at 1842, For 1 dose, Administer only postop in PACU, PACU documented in this encounter Advance Directives Latest [...] the patient have Health Care Power of Bistro Attendant? No Care Teams Partition Notcher Relationship Specialty Start Date End Date Merced Quinteros PA-C [address] [facility] [place] [address] PCP - General Physician Wood Heel Finisher 04/15/22 documented as of this encounter
--- OUTSIDE RECORDS SUMMARY | 2023-11-06 16:33 | External Medical Summary | Summary of Care ---
Author Name Unknown Organization [facility] Address [address] [facility] [place] [address] Phone [phone] Care Team Providers Care Rand Maker Name Role Phone Sangita Quinteros PA-C Primary Care Provider [phone] Reason for Visit * Reason Onset Date Comments Medication Refill 10/06/2023 Encounter Details Date Type Department Care Team (Late st Contact Info) Description 10/06/2023 Refill [facility] [address] [place] [phone] Sangita Quinteros PA-C [address] [place] [address] SOB (shortness of breath) Allergies Active Allergy Reactions Criticality Noted Date Comments Adhesive Tape Rash 09/04/2014 Almost burned skin Coconut (Cocos Nucifera) Rash 12/01/2006 Watermelon Concentrate 09/26/2013 Watermelon - hive, vomit documented as of this encounter (statuses as of 10/07/2023) Medications Medication Sig Dispensed Refills Start Date End Date Status Famotidine 20 MG Oral Tablet (Pepcid) TAKE 1 TABLET BY MOUTH IN THE MORNING AND 1 TABLET BEFORE BEDTIME. 180 Tablet 3 01/13/2023 Active Fluticasone Propionate 50 MCG/ACT Nasal Suspension (Flonase)Indicatio ns:Acute maxillary sinusitis, recurrence not specified SPRAY 2 SPRAYS INTO EACH NOSTRIL IN THE MORNING 48 mL 3 01/19/2023 Active Metoprolol Succinate ER 25 MG Oral Tablet Extended Release 24 Hour (toPROL XL) TAKE 1 TABLET BY MOUTH EVERY DAY IN THE MORNING 90 Tablet 1 04/16/2023 Active Spironolactone 100 MG Oral Tablet (Aldactone)Indicat [...] for Wheezing. 18 g 2 10/07/2023 Active Proventil HFA 108 (90 Base) MCG/ACT Inhalation Aerosol SolutionIndication s:SOB (shortness of breath) Inhale by mouth 2 Puffs every 4 hours as needed for Wheezing. 18 g 2 05/14/2022 10/06/2023 Discontinued (Refill) Hospital, Clinic, or Other Facility Administered Medication Ordered Dose Route Frequency Start Date End Date Status medroxyPROGESTERone (contracep) (Depo-Provera) inj 150 mgIndications:Surveillance for Depo-Provera contraception 150 mg IM [id number] 09/24/2023 Active documented as of this encounter (statuses as of 10/07/2023) Active Problems Problem Noted Date Diagnosed Date Dyspareunia in female 06/24/2023 Body mass index [...] range. Based on Blood Bank evaluation at [facility], we should consider this patient's blood type [...] genetic disease 12/12/2021 Overview: Maternal history of Xbdrl-Ymkyvtqhz-Wlhxj. Last Assessment & Plan: Considerations: Most cases of Gluwf-Yqldrbbki-Takfh syndrome occur in people with no family history of the condition. In most cases, Fswvp-Iewavklbn-Oymmu is a sporadic condition. Some patients with Hurck-Sblnolmer-Kkvqk have a genetic change in the PRKAG2 gene that can lead to Gismh-Fkiiwmgsx-Czmzv. This condition is is inherited in an [...] record release and obtain medical records from [facility]. Last Assessment & Plan: Recommendations: Pfannensteil incision for delivery. Sign medical record release and obtain medical records from [facility]. Family history of spina bifida [...] laparoscopy for ovarian cyst drainage at [facility]. 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 Overview: Most recently, Lucina was seen by [...] found Ventricular Rate: 79 Atrial Rate: 79 SD Interval: 148 QRS Duration: 86 QT/QTc: 356/408 [...] chest pain, palpitations, or syncope. - Attend [facility] cardiology referral on 12/19/21. o Medications - Optimize hemoglobin; encourage heme iron intake through lean red meat consumption as well as oral ferrous sulfate therapy; consider Venofer infusions. - Hnlnj-yyfv-fwcjmgenpf antagonism may be achieved with labetalol, a [...] anesthesia for pre-procedure assessment and consider notifying regional director of admissions of patient's presence on L&D. o Consider [...] not feeling well on it. Obesity during 12/12/2021 11/ 09/2022 Overview: Did not pass early glucola screen; [...] complicating 12/12/2021 06/24/2023 Overview: Concomitant AVNRT with Fyqmp-Lpbjswrey-Xqzsh Last Assessment & Plan: Patient will be [...] as of this encounter (statuses as of 10/07/2023) Immunizations Name Administration Dates Next Due HPV [...] money to get more. Never true 06/11/2022 [employer] Depression Scale Answer Date Recorded [employer] Depression Scale Total 0 08/20/2022 The thought [...] encounter Miscellaneous Notes * Telephone Encounter - Nory Collins RPh - 10/07/2023 11:30 AM EST Signed Prescriptions: Disp Refills Proventil HFA 108 (90 Base) MCG/ACT Inhala*18 g 2 Sig: Inhale 2Puffs by mouth every 4 hours as needed for Wheezing.Authorizing Provider: SANGITA QUINTEROS User: NORY COLLINS documented in this encounter Plan of Treatment Upcoming Encounters Date Type Department Care Team (Latest Contact Info) Description 10/12/2023 9:15 AM EST Cardiac Studies Cardiac Studies, [address] [address] 10/18/2023 11:59 AM EST Hospital Encounter OR [facility], Operating Room, [facility] 1st Floor [address] [place] [address] Issac Real MD [address] [place] [address] 10/18/2023 11:59 AM EST - 10/18/2023 1:19 PM EST Surgery OR [facility], Operating Room, [facility] 1st Floor [address] [place] [address] Issac Real MD [address] [place] [phone] LAPAROSCOPIC OOPHORECTOMY AND OR SALPINGECTOMY 11/03/2023 10:00 AM EDT Office Visit Family [facility], [place] [address] [place] [phone] Sangita Quinteros PA-C [address] [place] [address] 11/03/2023 1:30 PM EDT Office Visit Gynecology/Obsteti cs [address] [phone] Issac Real MD [address] [place] [phone] 11/25/2023 11:20 AM EDT Office Visit Dermatology, [place] [address] [place] [address] Jayne Grossman PA-C [address] [place] [address] [place] [address] 05/05/2024 9:30 AM EDT Office Visit Cardiology, [facility] [address] [facility] [place] [address] Helena Brown CRNP [address] [facility] [place] [phone] Scheduled Procedures Name Priority Associated Diagnoses Date/Ti me LAPAROSCOPIC OOPHORECTOMY AN D OR SALPINGECTOMY Sterilization 10/18/2023 11:59 AM EST Health Maintenance Due Date Last Done Comments COVID-19 Vaccine (#1) 01/01/1991 Pneumococcal Vaccine: Pediat rics (0 to 5 Years) and At-Risk Patients (6 to 64 Years) (1 - PCV) 1996 Depression Screening 10/18/2020 10/18/2019 Influenza Vaccine (FLU shot) (#1) 2023 006 [...] as of this encounter Visit Diagnoses Diagnosis SOB (shortness of breath) Shortness of breath Sterilization documented in this encounter Advance Directives Latest [...] the patient have Health Care Power of Supervisor [employer]? No Full Code 02/04/2021 2:44 PM 02/04/2021 7:42 PM This order reflects the patients wishes and were consensually agreed upon. Care Teams Rand Maker Relationship Specialty Start Date End Date Sangita Quinteros PA-C [address] [place] [place] [address] PCP - General Physician Hardware Designer 04/15/22 documented as of this encounter
--- OUTSIDE RECORDS SUMMARY | 2023-11-06 16:33 | External Medical Summary ---
Author Name Unknown Address Unknown Organization K1G:[facility] - [address] [place] [phone] Laboratory Report Ordering Provider Test Date Status PINKYFAUSTINANADYA 10/18/2023 11:00:33 Final Observation Date Value Abnormality Reference (Units ) Status Screen, Urine 10/18/2023 11:00:33 Negative Negative Final Performing Location [facility] - [address] [facility] [phone]
--- NOTE | 2023-11-06 16:53 | Neurology Consultation ---
Date of Consultation November 06, 2023 Assessment & Plan (1) Transient neurological symptoms: Plan 33 y/o female with history of WPW, ?bleeding disorder, GERD, and anxiety that presented followed a transient episode of right monocular visual disturbance and right upper and lower extremity weakness/numbness. Differential includes TIA and migraine. Given right to left shunt on TTE, would obtain LE doppler ultrasound. She indicates that she previously avoided aspirin due to bleeding associated with surgeries. In discussion about intitiation of aspirin, she has indicated that she would like to defer this until discussion with hematology. 1. Bilateral LE Ultrasound 2. Pt has declined aspirin 3. ESR/CRP 4. Hypercoag work-up 5. atorvastatin 40 mg 6. Cardiology consultation 7. Hematology consultation 8. Neurochecks q4 9. ST/PT/OT 10. Outpatient Neurology follow-up 11. Opthalmology referral Telehealth Consultation Telehealth Information Telehealth Information: I performed this visit using a real-time telehealth connection between my location and the patients location ([facility]). After connecting through interactive tele-video, patient was identified by name and date of and/or wristband check.Patient (or authorized healthcare warehouse representative) was informed that this was a telemedicine visit and it was being conducted confidentially over secure lines. My office door was closed and no one else was present in the room with me.Patient (or authorized healthcare warehouse representative) provided consent to proceed with the visit, expressed an understanding of privacy and security of the telemedicine visit, and gave permission to have a hospital warehouse representative in the room in order to assist with the visit and to conduct portions of the visit, as needed. I informed the patient (or authorized healthcare warehouse representative) that I reviewed their record and presented the opportunity for them to ask any questions regarding the visit today. The patient agreed to participate. History of Present Illness Reason for Consultation: stroke like symptoms Requesting Physician: Dillan Gage MD Attending Physician: Abdi Contreras MD History of Present Illness She states that she was at work at around 4-430, she started to feel that her vision was blurry out of the right eye. She felt that her vision was blurred at that time and describes it as if you were looking into a bright light. She denies any diplopia, vision loss, or curtain closing. She attempted to cover her right eye, and her vision seemed normal out of the left eye. In 2020, she presented after a recent ablation with left temporal headache and left sided weakness, which was suspected to be secondary to migraine. MRI brain at that time did not reveal any acute intracranial findings. On yesterday, within a few minutes of her blurred vision starting, she developed right upper extremity numbness and then right lower extremity heaviness/weakness. After about 20 minutes, her symptoms resolved. She drove home and then after arriving at home, her fiance encouraged her to come to the ED. Her symptoms have remained resolved on today. She does get headaches once a month which she describes as left temporal in location with a quality she is unable to describe. She denies any photophobia, phonophobia, or nausea in association. Allergies Allergy/AdvReac Type Severity Reaction Status Date / Time coconut Allergy Intermediate HIVES Verified 11/06/23 00:03 watermelon Allergy Intermediate HIVES Verified 11/06/23 00:03 No Known Drug Allergies Allergy Unknown . Verified 11/06/23 00:03 adhesive Allergy "if left Verified 11/06/23 00:03 on too long, tape and bandaids take my skin off" Home Medications Medication Instructions Recorded Confirmed Type metoprolol succinate 25 mg 25 mg PO QAM 04/04/22 11/06/23 History tablet,extended release 24 hr albuterol sulfate 90 mcg/actuation 2 puff inhalation QID PRN Wheezing 02/01/23 11/06/23 History aerosol inhaler (Proventil HFA) spironolactone 100 mg tablet 100 mg PO QAM 02/01/23 11/05/23 History TENS unit and electrodes combo pack #1 ea 06/10/23 11/06/23 Rx acetaminophen 325 mg tablet 975 mg PO Q8 PRN Pain 11/05/23 11/05/23 History doxycycline hyclate 50 mg capsule 50 mg PO DAILY 11/05/23 11/05/23 History famotidine 20 mg tablet 20 mg PO AMHS 11/05/23 11/06/23 History ibuprofen 800 mg tablet 800 mg PO Q8 PRN Pain 11/05/23 11/05/23 History fluticasone propionate 50 2 spray intranasal QAM 11/06/23 11/06/23 History mcg/actuation nasal spray,suspension Patient History Medical History Blood type O- Pt states that her blood type is O negative, partial D positive and that routine type and screen will incorrectly flag this as O positive. Blood card is scanned to the chart. History of anxiety Hx of blood clots "250mL blood clot in abdomen following the partial oophorectomy, instituted another surgery to go back in and clean it up" Cervical radiculopathy Cervical facet joint syndrome ROM>cannot turn head the whole way to her left, turning to right is fine, can look up and down Brain TIA 07/2021 Encounter for pre-operative examination History of kidney stones Polyp, stomach "Still have this, never did anything with it" Stomach erosion hx GERD (gastroesophageal reflux disease) controlled, stable per pt WPW (Nykkq-Vtmhukook-Xlagd syndrome) follows with [facility] and [facility] cardio History of bronchitis 11/2022, last albuterol inhaler use 2 months ago Hidradenitis suppurativa Surgical History Hx of laparoscopy to remove blood clot from abdomen Hx of unilateral oophorectomy "part of ovary removed" History of cardiac radiofrequency ablation (RFA) x3; sent to [facility]>2019, attempted twice "within short period of time, did not work"; 07/2021, [facility] in [place], attempted Cardiac Ablation>"thought it had worked, but when re-checked in 09/2021, my heart rate was still irregular, and has not had it re-checked since then." History of electrophysiologic study checking for tarsal tunnel in her feet History of adenoidectomy History of surgery removal of HS growth from axilla History of hernia repair x3 History of excision of lesion breast>benign History of esophagogastroduodenoscopy (EGD) Family History Grandfather (Maternal) Esophageal cancer Other No family history of adverse response to anesthesia Social History Smoking Status: Current every day smoker Tobacco Type: Cigarettes Cigarettes Per Day: 5; Second Hand Exposure: No; Do You Dip or Chew Tobacco: No; Hx Alcohol Use: Yes Alcohol type: hard liquor Hx Substance Use: No Preferred Language: Tuvaluan Communication Ability: Effective Visual Impairment: No Limitations Hearing Ability: Normal Translator/Interpreter Required: No Beliefs That Will Affect Care: None marital status: Single Current Living Situation: Family Current Living Situation Comment: lives with son and fiance current occupational status: employed current occupation: works with special needs adults Other Information That Helps Us Care for You: No Feels Safe at Home: Yes Safety Concerns: Feels Safe At This Time Assistive Devices: Contacts Review of Systems negative except as listed in HPI Physical Exam AAO X 3 No aphasia or dysarthria VF grossly intact EOMI, no nystagmus Facial sensations intact No facial asymmetry Tongue protrudes midline Motor: Moves all four extremities antigravity, no drift Sensation: Intact to light touch throughout Cerbellar: FTN and HTS intact NIHS 0 Results & Data Vital Signs (Past 12 Hours) Vital Signs Temp Pulse Pulse Resp BP Pulse Ox O2 Del Method 11/06/23 15:26 36.8 C 61 18 96/60 L 97 Room Air 11/06/23 11:23 36.6 C 56 L 18 111/66 96 Room Air 11/06/23 08:00 55 L 11/06/23 07:02 36.7 C 54 L 18 104/64 97 Room Air Laboratory Results WBC 7.26, HGB 12.2, HCT 36.0, Plts, 237, INR 1.0, Sodium 137, Potassium 4.0, Chloride 109, Carbon Dioxide 23, BUN 13, Creatinine 0.83, A1C 5.6, Clacium 8.6, Magnesium 2.0, AST 16, ALT 11, Alkaline phosphatase 65, albumin 4.0, LDL 93, HDL 32, Diagnostic Findings MRV:No dural sinus thrombosis. 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 CTH:No evidence of acute intercranial pathology. CTA head/neck: Negative CTA neck. Negative CT angiogram of the head. There is an abrupt cut off of the medial left transverse dural venous sinus concerning for possible partially occlusive thrombus. MRI: Unremarkable MRI of the brain. TTE: EF 60-65%, normal sized left atrium, moderate right to left shunt
[2023-11-07 08:10] LABS: Basophils # (auto) 0.02 K/uL (0.00-0.20); Basophils % (auto) 0.3 %; Eosinophils # (auto) 0.29 K/uL (0.00-0.50); Eosinophils % (auto) 4.7 %; Hematocrit (blood only) 37.2 % (37.0-47.0); Hemoglobin 12.9 g/dl (12.0-16.0); Immature Granulocytes # (auto) 0.01 K/uL (0.01-0.20); Immature Granulocytes % (auto) 0.2 %; Lymphocytes # (auto) 2.19 K/uL (1.20-3.40); Lymphocytes % (auto) 35.2 %; Mean Corpuscular Hemoglobin 28.7 pg (25.0-34.0); Mean Corpuscular Hgb Conc 34.7 g/dL (32.0-36.0); Mean Corpuscular Volume 82.9 fL (80.0-100.0); Mean Platelet Volume 9.6 fL (9.4-12.4); Monocytes # (auto) 0.47 K/uL (0.11-0.59); Monocytes % (auto) 7.5 %; Neutrophils # (auto) 3.25 K/uL (1.40-6.50); Neutrophils % (auto) 52.1 %; Platelet Count 249 K/uL (130-400); RDW Standard Deviation 39.3 fL (36.4-46.3); Red Blood Count 4.49 M/uL (4.20-5.40); White Blood Count 6.23 K/ul (4.8-10.8)
--- NOTE | 2023-11-07 08:13 | Ultrasound Report ---
BILATERAL LOWER EXTREMITY VENOUS DOPPLER HISTORY: Stroke like symptoms. r/o dvt COMPARISON STUDY: None. FINDINGS: There is normal compressibility, flow, and augmentation within the bilateral lower extremit y deep venous systems. IMPRESSION: No DVT within the right or left lower extremity. ACT 112: Negative or not required by law. Electronically signed by: Osvaldo Navarrete M.D. 11/07/2023 8:12 AM
[2023-11-07 08:24] LABS: Anion Gap 5 (3-11); Blood Urea Nitrogen 16 mg/dl (6-23); Calcium 8.9 mg/dl (8.6-10.3); Carbon Dioxide 23 mmol/L (21-32); Chloride 110 mmol/L (98-107); Creatinine Clr Calc Pharmacy 106.8 ml/min; Est GFR (African American) 98.7 ml/min; Est GFR (Non-African American) 85.2 ml/min; Glucose 90 mg/dl (70-99(Fasting)); Magnesium 2.1 mg/dl (1.7-2.4); Phosphorus 3.8 mg/dl (2.5-4.9); Potassium 4.3 mmol/L (3.5-5.1); Sodium 138 mmol/L (136-145)
[2023-11-07 09:22] LABS: C Reactive Protein < 0.50 mg/dl (0-0.5)
[2023-11-07] MEDS ORDERED: STROKE PATIENT DISCHARGE STA (10:19)
--- NOTE | 2023-11-07 10:57 | Hospitalist Progress Note ---
Date of Service November 07, 2023 Assessment & Plan (1) Stroke-like symptoms: Plan: 33 yo F with past medical history significant for Chaudhari Parkinson's White syndrome s/p ablation, brain TIA, morbid obesity, GERD, constipation, dysfunctional uterine bleeding, hidradenitis, history of traumatic dislocation of cervical spine, cervical adenopathy, bleeding disorder, Rh- status during , tobacco use disorder, GERD anxiety disorder, presents with strokelike symptoms. Patient states around 4:30 PM she felt numbness in the right face, right arm and right lower extremity and also blurred vision in the right eye which lasted for 15 to 20 minutes and subsided. After that she felt tired and fatigued for some time. Currently she is back to normal. Denies any headache currently. No double vision. No runny nose or sore throat. No cough. No difficulty swallowing. No fevers. No chest pain. No shortness of breath. No nausea. No abdominal pain. Normal bowel and bladder movements. Currently resting comfortably and hemodynamically stable. In July 2021 she presented to [facility] with left arm weakness and left temporal headache, it happened postcardiac ablation at [facility].At that time workup was unremarkable. There is question of von Willebrand disease and the patient states she was not started on aspirin because of that. Neurology thought the possibility of migraine with a transient migrainous component at that time. Transient neurological symptoms Strokelike symptoms Right-sided numbness with right eye blurred visions which lasted for [address] head okay CTA neck okay CTA head question of abrupt cut off of the medial left transverse dural venous sinus concerning for possible partially occlusive thrombus. ER discussed with [place] neurology and was recommended MRV. And if MRV shows thrombus then advised to discuss with heme-onc about anticoagulation because of question of von Willebrand's disease. Will do full stroke workup with MRI head, MRV head, echo and telemetry and neurochecks MR brain - Unremarkable MRI of the brain. MRV - No dural sinus thrombosis. 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 Doppler LEs - No DVT within the right or left lower extremity. Echo -EF 65%. RV is normal size. RV systolic function is normal as assessed by TAPSE. No significant valvular pathology. Injection of contrast documented moderate right to left interatrial shunt. Findings suggest patent foramen ovale, however, small ASD cannot be excluded due to imaging limitations. Neurology consulted - 1. Bilateral LE Ultrasound - negative for DVT 2. Pt has declined aspirin 3. ESR/CRP - normal levels 4. Hypercoag work-up - as per outpt hematology (Dr. Pozo) 5. atorvastatin 40 mg - started 6. Cardiology consultation - Discussed w/ Dr. Davis (cardiology) - pt wants to be discharged home today - she will follow up as outpt - ASA and likely JASMYN recommended - pt aware 7. Hematology consultation - pt wants to follow w/ Dr. Pozo as outpt 8. Neurochecks q4 9. ST/PT/OT 10. Outpatient Neurology follow-up 11. Opthalmology referral - to be arranged by pcp History of Wdamf-Bhpodrxbv-Xhzdy syndrome s/p ablation History of recurrent SVT On metoprolol Follows with cardiology Morbid obesity Needs counseling Hidradenitis On spironolactone Questionable bleeding disorder As per heme-onc notes:With previous normal PT PTT, Platelet count, normal factor VIII level, ristocetin cofactor level and von Willebrand factor level as well as several surgeries without any bleeding complications, Don't t see any obvious bleeding disorder. Patient also some discrepancy about ABO typing. As per heme-onc notes:If the patient requires transfusions in the future, ABO/Rh compatible units lacking the D antigen, which are TRACEE-AHG compatible,should be provided. Units from 15% of the donor population are expected to be compatible. And to please call the Blood Bank at [phone] with any questions. Per neurology - recommend starting aspirin - pt declined - wants to discuss w/ Dr. Pozo (her hospitality recruiter) first Admission and Anticipated Discharge Date Admission Date: November 06, 2023 Subjective Pt seen in follow up transient neurological symptoms Currently feeling well, all symptoms have resolved and she would like to be discharged home this AM No fever, chills, chest pain palpitations Pt seen by neurology yesterday and all the recommendations reviewed with the pt - LE doppler this AM negative for DVT. Pt currently not sure if she wants to take aspirin - says she will likely obtain OTC aspirin but she also wants to talk to Dr. Pozo - hematology that she follows with. Regarding PFO - she does not wish to stay so plan for consult and likely JASMYN as outpatient. Communicated this with cardiology (Dr. Davis) and the pt. Review of Systems Review of Systems: All systems reviewed & are unremarkable except as noted in Subjective Physical Exam Physical Exam: General- WD/WN young F in NAD Head- atraumatic Eyes- PERRL, EOMI. ENT- oropharynx clear Neck- supple, no JVD, no carotid bruit. Lungs- clear to auscultation, no wheezing or crackles. Heart- regular rate and rhythm; no murmur, no gallop. Abdomen- normal bowel sounds, soft, nontender, no distension. Extremities- no pretibial edema, no erythema seen. moves extremities Neuro- alert, oriented PERRL, EOMI; no facial palsy; no dysarthria; motor 5/5 bilaterally;sensations intact Skin- warm & dry Results & Data Results & Data Vital Signs (Past 12 Hours) Vital Signs Temp Pulse Pulse Resp BP BP Pulse Ox 11/07/23 10:21 36.6 C 52 L 18 109/68 123/72 96 11/07/23 08:00 49 L 11/07/23 07:06 36.6 C 52 L 18 109/68 96 11/07/23 03:21 36.9 C 47 L 15 107/69 95 11/06/23 22:59 58 L 11/06/23 22:52 36.9 C 63 15 109/70 96 O2 Del Method 11/07/23 10:21 11/07/23 08:00 11/07/23 07:06 Room Air 11/07/23 03:21 Room Air 11/06/23 22:59 11/06/23 22:52 Room Air Laboratory Results 11/07/23 11/06/23 Range/Units 07:14 Unknown WBC 6.23 (4.8-10.8) K/ul RBC 4.49 (4.20-5.40) M/uL Hgb 12.9 (12.0-16.0) g/dl Hct 37.2 (37.0-47.0) % MCV 82.9 (80.0-100.0) fL MCH 28.7 (25.0-34.0) pg MCHC 34.7 (32.0-36.0) g/dL RDW Std Deviation 39.3 (36.4-46.3) fL RDW Coeff of Dana 13.0 (11.5-14.5) % Plt Count 249 (130-400) K/uL MPV 9.6 (9.4-12.4) fL Immature Gran % (Auto) 0.2 % Neut % (Auto) 52.1 % Lymph % (Auto) 35.2 % [place] % (Auto) 7.5 % Eos % (Auto) 4.7 % Baso % (Auto) 0.3 % Neut # (Auto) 3.25 (1.40-6.50) K/uL Lymph # (Auto) 2.19 (1.20-3.40) K/uL Vermilion # (Auto) 0.47 (0.11-0.59) K/uL Eos # (Auto) 0.29 (0.00-0.50) K/uL Baso # (Auto) 0.02 (0.00-0.20) K/uL Immature Gran # (Auto) 0.01 (0.01-0.20) K/uL ESR 11 (0-20) mm/hr Sodium 138 (136-145) mmol/L Potassium 4.3 (3.5-5.1) mmol/L Chloride 110 H (98-107) mmol/L Carbon Dioxide 23 (21-32) mmol/L Anion Gap 5 (3-11) BUN 16 (6-23) mg/dl Creatinine 0.89 (0.6-1.2) mg/dl Est Cr Clr Drug Dosing 106.8 ml/min Est GFR ( Amer) 98.7 ml/min Est GFR (Non-Af Amer) 85.2 ml/min BUN/Creatinine Ratio 18.0 (10-20) Glucose 90 (70-99(Fasting)) mg/dl Calcium 8.9 (8.6-10.3) mg/dl Phosphorus 3.8 (2.5-4.9) mg/dl Magnesium 2.1 (1.7-2.4) mg/dl C-Reactive Protein < 0.50 (0-0.5) mg/dl Urine Test Negative (Negative)
--- NOTE | 2023-11-07 11:17 | Discharge Summary ---
Date of Service November 07, 2023 Admission HPI Per Admitting Provider 33-year-old female with past medical history significant for Chaudhari Parkinson's White syndrome s/p ablation, brain TIA, morbid obesity, GERD, constipation, dysfunctional uterine bleeding, hidradenitis, history of traumatic dislocation of cervical spine, cervical adenopathy, bleeding disorder, Rh- status during , tobacco use disorder, GERD anxiety disorder, presents with strokelike symptoms. Patient states around 4:30 PM she felt numbness in the right face, right arm and right lower extremity and also blurred vision in the right eye which lasted for 15 to 20 minutes and subsided. After that she felt tired and fatigued for some time. Currently she is back to normal. Denies any headache currently. No double vision. No runny nose or sore throat. No cough. No difficulty swallowing. No fevers. No chest pain. No shortness of breath. No nausea. No abdominal pain. Normal bowel and bladder movements. Currently resting comfortably and hemodynamically stable. In July 2021 she presented to [facility] with left arm weakness and left temporal headache, it happened postcardiac ablation at [facility].At that time workup was unremarkable. There is question of von Willebrand disease and the patient states she was not started on aspirin because of that. Neurology thought the possibility of migraine with a transient migrainous component at that time. Past med history. As mentioned above. Past surgical history. Heart dysrhythmia ablation. Excision of left breast mass. Dental surgery. EGD. EGD with biopsy. Incisional hernia repair laparoscopic. Diagnostic laparoscopy. Laparoscopic oophorectomy. Ovarian cystectomy. Adenoidectomy. Umbilical hernia repair. Social history. Smokes 0.3 packs/day for 18 years. No alcohol use currently. No drug use. Family history. Mother had diabetes. Maternal great aunt had breast cancer Admission Exam Per Admitting Provider General- Not in distress Head- atraumatic Eyes- PERRL, EOMI. ENT- oropharynx clear Neck- supple, no JVD, no carotid bruit. Lungs- clear to auscultation, no wheezing or crackles. Heart- regular rate and rhythm; no murmur, no gallop. Abdomen- normal bowel sounds, soft, nontender, no distension. Extremities- no pretibial edema, no erythema seen. Neuro- alert, oriented PERRL, EOMI; no facial palsy; no dysarthria; motor 5/5 bilaterally; can raise and hold lower extremity, co ordination of movements normal.No pronator drift, sensations intact, position sense intact Skin- warm & dry Principal Diagnosis Transient neurological symptoms PFO Discharge Exam General- WD/WN young F in NAD Head- atraumatic Eyes- PERRL, EOMI. ENT- oropharynx clear Neck- supple, no JVD, no carotid bruit. Lungs- clear to auscultation, no wheezing or crackles. Heart- regular rate and rhythm; no murmur, no gallop. Abdomen- normal bowel sounds, soft, nontender, no distension. Extremities- no pretibial edema, no erythema seen. moves extremities Neuro- alert, oriented PERRL, EOMI; no facial palsy; no dysarthria; motor 5/5 bilaterally;sensations intact Skin- warm & dry Discharge Data Allergies Allergy/AdvReac Type Severity Reaction Status Date / Time coconut Allergy Intermediate HIVES Verified 11/06/23 00:03 watermelon Allergy Intermediate HIVES Verified 11/06/23 00:03 No Known Drug Allergies Allergy Unknown . Verified 11/06/23 00:03 adhesive Allergy "if left Verified 11/06/23 00:03 on too long, tape and bandaids take my skin off" Consultations 11/06/23 00:33 ED Decision to Admit Stat 11/06/23 08:00 Consult Neurology Routine Ordered Studies 11/05/23 22:21 CT angio head w con Stat CT angio neck with con Stat CT head/brain wo con Stat 11/06/23 02:07 MR brain wo/w con Urgent MR venography head wo con Stat 11/07/23 US venous doppler LE Routine Hospital Course (1) Stroke-like symptoms: 33 yo F with past medical history significant for Chaudhari Parkinson's White syndrome s/p ablation, brain TIA, morbid obesity, GERD, constipation, dysfunctional uterine bleeding, hidradenitis, history of traumatic dislocation of cervical spine, cervical adenopathy, bleeding disorder, Rh- status during , tobacco use disorder, GERD anxiety disorder, presents with strokelike symptoms. Patient states around 4:30 PM she felt numbness in the right face, right arm and right lower extremity and also blurred vision in the right eye which lasted for 15 to 20 minutes and subsided. After that she felt tired and fatigued for some time. Currently she is back to normal. Denies any headache currently. No double vision. No runny nose or sore throat. No cough. No difficulty swallowing. No fevers. No chest pain. No shortness of breath. No nausea. No abdominal pain. Normal bowel and bladder movements. Currently resting comfortably and hemodynamically stable. In July 2021 she presented to [facility] with left arm weakness and left temporal headache, it happened postcardiac ablation at [facility].At that time workup was unremarkable. There is question of von Willebrand disease and the patient states she was not started on aspirin because of that. Neurology thought the possibility of migraine with a transient migrainous component at that time. Transient neurological symptoms Strokelike symptoms Right-sided numbness with right eye blurred visions which lasted for [address] head okay CTA neck okay CTA head question of abrupt cut off of the medial left transverse dural venous sinus concerning for possible partially occlusive thrombus. ER discussed with [place] neurology and was recommended MRV. And if MRV shows thrombus then advised to discuss with heme-onc about anticoagulation because of question of von Willebrand's disease. Will do full stroke workup with MRI head, MRV head, echo and telemetry and neurochecks MR brain - Unremarkable MRI of the brain. MRV - No dural sinus thrombosis. 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 Doppler LEs - No DVT within the right or left lower extremity. Echo -EF 65%. RV is normal size. RV systolic function is normal as assessed by TAPSE. No significant valvular pathology. Injection of contrast documented moderate right to left interatrial shunt. Findings suggest patent foramen ovale, however, small ASD cannot be excluded due to imaging limitations. Neurology consulted - 1. Bilateral LE Ultrasound - negative for DVT 2. Pt has declined aspirin 3. ESR/CRP - normal levels 4. Hypercoag work-up - as per outpt hematology (Dr. Pozo) 5. atorvastatin 40 mg - started 6. Cardiology consultation - Discussed w/ Dr. Davis (cardiology) - pt wants to be discharged home today - she will follow up as outpt - ASA and likely JASMYN recommended - pt aware 7. Hematology consultation - pt wants to follow w/ Dr. Pozo as outpt 8. Neurochecks q4 9. ST/PT/OT 10. Outpatient Neurology follow-up 11. Opthalmology referral - to be arranged by pcp History of Ydkzp-Aqmmtzxsl-Xetnq syndrome s/p ablation History of recurrent SVT On metoprolol Follows with cardiology Morbid obesity Needs counseling Hidradenitis On spironolactone Questionable bleeding disorder As per heme-onc notes:With previous normal PT PTT, Platelet count, normal factor VIII level, ristocetin cofactor level and von Willebrand factor level as well as several surgeries without any bleeding complications, Don't t see any obvious bleeding disorder. Patient also some discrepancy about ABO typing. As per heme-onc notes:If the patient requires transfusions in the future, ABO/Rh compatible units lacking the D antigen, which are TRACEE-AHG compatible,should be provided. Units from 15% of the donor population are expected to be compatible. And to please call the Blood Bank at [phone] with any questions. Per neurology - recommend starting aspirin - pt declined - wants to discuss w/ Dr. Pozo (her armature coil winder) first Total Time Total Time Spent Total Time Spent (In Minutes): 40 Discharge Plan Discharge Items Patient Disposition: Home - Self-Care Reason For Visit: STROKE LIKE SYMPTOMS Discharge Diagnosis: Transient neurological symptoms PFO Activity: Per Instructions section Non-emergency contact: Primary Care Provider, Specialist, Rug Underlay Machine Operator and Neurologist Call non-emergency contact if: you have any medication questions and your symptoms worsen Follow-up/Referrals: Merced Quinteros PA-C [Primary Care Provider] - Diet: Regular Addtl Attending Provider Instructions: Follow up with your primary care doctor, neurologist, armature coil winder and research librarian. You should see your primary care doctor within 1-2 weeks. You will be contacted about your appointment with cardiology. It is recommended that you take aspirin 81 mg daily and atorvastatin 40 mg daily. Pending Studies at Discharge: No Stand-Alone Forms: My [employer], Smoking Cessation Medications and DC Order Prescriptions: New atorvastatin 40 mg tablet 40 mg PO DAILY Qty: 30 0RF Continued (DME) TENS unit and electrodes Combo Pack See Rx Instructions .Route Qty: 1 0RF Rx Instructions: As directed metoprolol succinate 25 mg tablet extended release 24 hr 25 mg PO QAM spironolactone 100 mg Tablet 100 mg PO QAM albuterol sulfate [Proventil HFA] 90 mcg/actuation Hfa Aerosol Inhaler 2 puff INHALATION QID PRN (Reason: Wheezing) Patient Comments: usually for seasonal allergies ibuprofen 800 mg tablet 800 mg PO Q8 PRN (Reason: Pain) Rx Instructions: alternate with tylenol doxycycline hyclate 50 mg capsule 50 mg PO DAILY acetaminophen 325 mg tablet 975 mg PO Q8 PRN (Reason: Pain) Rx Instructions: alternate with ibuprofen famotidine 20 mg tablet 20 mg PO AMHS fluticasone propionate 50 mcg/actuation spray,suspension 2 spray INTRANASAL QAM Discharge Orders: Discharge Order (Routine); Ordered 11/07/23 Ordered By: Abdi Montilla/Other Patient Handouts: Patent Foramen Ovale Admission Data Admit Date/Time: 11/06/23 01:36 Attending Provider: Abdi Contreras Admit Provider: Dillan Gage Primary Care Provider: Merced Quinteros Other Providers: Dillan Gage; Becki Agustin; Qasim Hernandez; Becki Caro; Nolan Phillips; Sheng London; José Miguel Oneill; Mian Wheeler; Rupa Parson; Kris Preston; Julio Chew; Honey Larson; Dandre Rowley; Areli Ramesh; Svetlana Davis; Mian Lazaro; Katie Ansari Other Interventions: Discharge Summary Assessment (RN) Last Done: 11/07/23 10:21
== END 2023-11-07 10:41 | disposition home or self-care (01) | DRG 92 ==
LOC: ED 19:56 → 2S 11-06 01:36 → SUATTDRO 11-06 01:36 → 2S 11-06 03:15